=== PATIENT | female | born 1945 | race Caucasian/White ===

== ENCOUNTER 2018-11-08 21:14 | Observation (INO) ==
[2018-11-08] MEDS ORDERED: ACETAMINOPHEN 500 MG TAB PO STA (21:43)
[2018-11-08] MEDS ORDERED: SODIUM CHLORIDE 0.9% 500 ML IV SCH (21:45)
[2018-11-08 21:57] LABS: Basophils # (auto) 0.06 K/uL (0-0.2); Basophils % (auto) 0.6 %; Eosinophils # (auto) 0.18 K/uL (0-0.5); Eosinophils % (auto) 1.8 %; Hematocrit (blood only) 42.5 % (37-47); Hemoglobin 14.4 g/dL (12.0-16.0); Immature Granulocytes % (auto) 0.6 %; Lymphocytes # (auto) 2.56 K/uL (1.2-3.4); Lymphocytes % (auto) 25.4 %; Mean Corpuscular Hgb Conc 33.9 g/dL (32-36); Mean Corpuscular Volume 86.6 fL (80-100); Monocytes # (auto) 0.56 K/uL (0.11-0.59); Monocytes % (auto) 5.6 %; Neutrophils # (auto) 6.67 K/uL (1.4-6.5); Platelet Count 199 K/uL (130-400); RDW Coefficient of Variation 14.2 % (11.5-14.5); RDW Standard Deviation 44.8 fL (36.4-46.3); Red Blood Count 4.91 M/uL (4.2-5.4); White Blood Count 10.09 K/uL (4.8-10.8)
[2018-11-08 21:58] LABS: Immature Granulocytes # (auto) 0.06 K/uL (0.00-0.02)
[2018-11-08 22:15] LABS: Prothrombin Time 9.8 Seconds (9.0-12.0)
[2018-11-08 22:16] LABS: Alanine Aminotransferase 14 U/L (12-78); Albumin Level 3.6 gm/dl (3.4-5.0); Aspartate Aminotransferase 12 U/L (15-37); BUN Creatinine Ratio 15.3 (10-20); Blood Urea Nitrogen 15 mg/dl (7-18); Calcium 9.3 mg/dl (8.5-10.1); Carbon Dioxide 28 mmol/L (21-32); Chloride 106 mmol/L (98-107); Creatinine Clr Calc Pharmacy 62.8 ml/min; Est GFR (African American) 69.4; Est GFR (Non-African American) 59.8; Glucose 127 mg/dl (70-99); Magnesium 1.6 mg/dl (1.8-2.4); Potassium 3.9 mmol/L (3.5-5.1); Sodium 141 mmol/L (136-145)
[2018-11-08 22:27] LABS: Albumin Globulin Ratio 1.1 (0.9-2); Alkaline Phosphatase 69 U/L (45-117); Bilirubin,Total 0.3 mg/dl (0.2-1); Globulin 3.2 gm/dl (2.5-4.0); Total Protein 6.8 gm/dl (6.4-8.2); Troponin I < 0.015 ng/ml (0-0.045)
--- NOTE | 2018-11-08 22:34 | CT Scan Report ---
CT SCAN OF THE BRAIN WITHOUT IV CONTRAST CLINICAL HISTORY: Right arm numbness. COMPARISON STUDY: No priors. TECHNIQUE: Unenhanced axial CT scan of the brain is performed from the vertex to the skull base. A do se lowering technique was utilized adhering to the principles of ALARA. CT DOSE: 537.48 mGy.cm FINDINGS: Brain parenchyma: There are age-related involutional changes noting mild subcortical and periventric ular microangiopathic change. There is no hemorrhage, mass effect, or evidence of acute territorial i schemia by CT criteria. Miles-white matter differentiation is preserved. No extra-axial fluid collecti on is seen. Ventricles, sulci, cisterns: Prominent secondary to involutional change. Intracranial vasculature: There is atherosclerotic calcification of the cavernous carotid and vertebr al arteries. Calvarium: Unremarkable. Sinuses and mastoids: The visualized paranasal sinuses are clear. The mastoid air cells are well pneu matized. Orbits: The bony orbits are grossly intact. IMPRESSION: There is no hemorrhage, mass effect, or evidence of acute territorial ischemia by CT kris cisse. Electronically signed by: Chapin Smith M.D. 11/08/2018 10:33 PM
--- NOTE | 2018-11-08 22:57 | XRay Report ---
SINGLE VIEW CHEST CLINICAL HISTORY: Generalized weakness. FINDINGS: An AP, portable, upright chest radiograph is correlated with chest CT dated 10/05/2018. The cardiomediastinal silhouette is unremarkable noting atherosclerotic calcification of the thoracic aor ta. There is chronic elevation of right hemidiaphragm with associated atelectasis. Scattered calcifie d granulomas are observed. The lungs and pleural spaces are otherwise clear. No pneumothorax is seen. The skeletal structures are osteopenic. The bony thorax is grossly intact. Arthritic change is seen in the shoulders. IMPRESSION: No active disease in the chest. Electronically signed by: Chapin Smith M.D. 11/08/2018 10:55 PM
[2018-11-08] MEDS ORDERED: ASPIRIN CHEW 324 MG PO STA (23:25)
[2018-11-09] MEDS ORDERED: dexAMETHasone 4 MG TAB PO ONE (00:37)
[2018-11-09] MEDS ORDERED: clonazePAM 0.5 MG TAB PO ONE (00:40)
[2018-11-09] MEDS ORDERED: VENLAFAXINE HCL XR 150 MG CAPXR PO ONE (00:40)
--- NOTE | 2018-11-09 00:56 | Emergency Department Note ---
Entered by Carmen Hunter acting as a scribe for Casey Meneses MD History of Present Illness General Chief complaint: TIA Symptoms Stated complaint: CONFUSION, NUMBNESS, JUMPY VISION, SLURRED SPEECH Time Seen by Provider: 11/08/18 21:26 Source: patient History of Present Illness Provider complaint: blurred vision Onset (ago): hour(s) 3 Location: eyes Pain Consistency: + other (episode) Maximum Pain Intensity: 1 Associated symptoms: + headaches and + other (+right sided numbness, -tingling, +slurred speech); no chest pain and no nausea/vomiting The patient is a 73 year old female w/ PMHx diabetes and hypertension who presents to the ED w/ CC of an episode of blurred vision beginning 3 hours ago. The patient states that she was experiencing blurred vision at 1800 today which lasted 3-5 minutes. She states that she then had right sided hand and forearm numbness that last several minutes. She denies any tingling. She denies any nausea, vomiting, or chest pain. The patients son states that she was experiencing confusion and slurred speech that lasted several minutes. The patient notes that she has a headache located on her forehead. She notes that she took Ibuprofen which did not alleviate her symptoms. The patient reports that she has a history of diabetes, high blood pressure, anxiety, and depression. Home Medications Home Medications Medication Instructions Recorded Confirmed Type albuterol sulfate HFA 90 1 - 2 puff INHALATION QID PRN #3 gm 09/30/18 11/08/18 History mcg/actuation aerosol inhaler insulin detemir (U-100) 100 9 units SUBCUT QPM #1 ml 10/07/18 11/08/18 History unit/mL (3 mL) subcutaneous pen semaglutide 0.25 mg or 0.5 mg (2 0.25 mg SQ .once per week #1.5 ml 10/07/18 0 11/08/18 Rx mg/1.5 mL) subcutaneous pen injector clonazepam 0.5 mg tablet 0.5 mg PO HS #30 tab 10/31/18 11/08/18 Rx benzonatate 100 mg capsule 100 mg PO TID PRN #30 cap 11/08/18 11/08/18 History bisoprolol 5 1 tab PO DAILY #30 tab 11/08/18 11/08/18 History mg-hydrochlorothiazide 6.25 mg tablet cholecalciferol (vitamin D3) 1,000 1,000 units PO DAILY cap 11/08/18 11/08/18 History unit capsule fluticasone propionate 50 1 sprays INTRANASAL DAILY PRN #1 gm 11/08/18 11/08/18 History mcg/actuation nasal spray,suspension ipratropium-albuterol 0.5 mg-3 3 ml INHALATION Q4H PRN #1 ml 11/08/18 11/08/18 History mg(2.5 mg base)/3 mL nebulization soln lisinopril 5 mg tablet 5 mg PO PM #1 tab 11/08/18 11/08/18 History metformin 1,000 mg tablet 1,000 mg PO BIDM #60 tab 11/08/18 11/08/18 History pioglitazone 15 mg tablet 15 mg PO DAILY #30 tab 11/08/18 11/08/18 History venlafaxine ER 150 mg 150 mg PO DAILY #30 cap 11/08/18 11/08/18 History capsule,extended release 24 hr Allergies Allergy/AdvReac Type Severity Reaction Status Date / Time amoxicillin [From Augmentin] Allergy Severe Anaphylaxis Verified 11/08/18 23:26 cephalexin Allergy Severe Hives Verified 11/08/18 23:26 clavulanic acid Allergy Severe Anaphylaxis Verified 11/08/18 23:26 [From Augmentin] Past Med/Surg History Medical History Hypertension Type 2 diabetes mellitus Surgical History History of colonoscopy History of dilation and curettage History of tonsillectomy History of tooth extraction Family History Mother Myocardial infarction Grandmother Breast cancer Kidney disease Hypertension Aunt Alzheimer disease Social History Preferred Language: Tajik Current Living Situation: Spouse current occupational status: retired Feels Safe at Home: Yes Smoking Status: Current every day smoker Hx Alcohol Use: No Hx Substance Use: No Dental Care, Regularly: No Review of Systems See HPI for pertinent positives & negatives. and A total of 10 systems reviewed and were otherwise negative Physical Exam Vital Signs Vital Signs - 24 hr 11/08/18 21:15 11/08/18 21:21 11/08/18 21:43 Temperature 36.7 C Temperature Source Oral Sepsis Recent Fever Within 48 Hours No Sepsis Action Taken by Nursing No Action Required Pulse Rate 85 Pulse Rhythm Regular Pulse Strength Normal Respiratory Rate 16 Respiratory Effort / Characteristics Non-Labored Respiratory Depth Normal Respiratory Pattern Regular Blood Pressure 148/83 H Blood Pressure Mean 104 Blood Pressure Position Sitting Pulse Oximetry 98 99 98 Oxygen Delivery Method Room Air Room Air Room Air GENERAL: Well appearing, appears older that stated age, well nourished, NAD, non-toxic. EYE EXAM: Normal conjunctiva. PERRL, no anisocoria and EOM's grossly intact w/o pain. OROPHARYNX: Moist mucous membranes. Grossly normal dentition. NECK: Supple, no nuchal rigidity, no adenopathy, non-tender. No signs of meningismus. LUNGS: Clear to auscultation. Normal chest wall mechanics. HEART: NSR, no MRG. ABDOMEN: Abdomen soft, non-tender, normo-active bowel sounds, no masses, no rebound or guarding. BACK: No CVA TTP. SKIN: No rashes and no bruising. UPPER EXTREMITIES: Upper extremities are grossly normal. LOWER EXTREMITIES: No pitting edema. No calf pain. NEURO EXAM: A&O x3, cranial nerves II-XII grossly intact, normal speech, 5/5 strength throughout, no sensory deficits, good finger to nose, no pronator drift, moves all 4 extremities on command w/o issue. Course 2128: The patient was evaluated in room B2, and a complete history and physical examination were performed. 6: I reevaluated the patient and updated her on her results. 2310: I [facility] the [facility] she will accept the patient for further evaluation. Consultations Consultation #1: [facility] Dana Odonnell [facility] Hospitalist Time: 23:10 Administered Medications Discontinued Medications Acetaminophen (Tylenol) 1,000 mg PO NOW STA Stop: 11/08/18 21:44 Last Admin: 11/08/18 22:02 Dose: 1,000 mg Documented by: [id number] Aspirin (Aspirin) 162 mg PO NOW STA Stop: 11/08/18 23:26 Last Admin: 11/08/18 23:35 Dose: 162 mg Documented by: [id number] Sodium Chloride (Nss) 500 mls @ 999 mls/hr IV .Q31M PAVITHRA Stop: 11/08/18 22:15 Last Infusion: 11/08/18 22:42 Dose: 0 mls/hr Documented by: [id number] Admin: 11/08/18 22:05 Dose: 999 mls/hr Documented by: [id number] Medical Decision Making Medical Records Attestation: I reviewed the patient's medical records. Home Medications Current Medication List: was personally reviewed by me Laboratory Data Attestation: I reviewed the patient's lab results. Result diagrams: 11/08/18 21:47 11/08/18 21:47 Lab Results 11/08/18 11/08/18 11/08/18 Range/Units 21:45 21:47 21:47 WBC 10.09 (4.8-10.8) K/uL RBC 4.91 (4.2-5.4) M/uL Hgb 14.4 (12.0-16.0) g/dL Hct 42.5 (37-47) % MCV 86.6 (80-100) fL MCH 29.3 (25-34) pg MCHC 33.9 (32-36) g/dL RDW Std Deviation 44.8 (36.4-46.3) fL RDW Coeff of Kofi 14.2 (11.5-14.5) % Plt Count 199 (130-400) K/uL MPV 11.0 H (7.4-10.4) fL Immature Gran % (Auto) 0.6 % Neut % (Auto) 66.0 % Lymph % (Auto) 25.4 % [place] % (Auto) 5.6 % Eos % (Auto) 1.8 % Baso % (Auto) 0.6 % Immature Gran # (Auto) 0.06 H (0.00-0.02) K/uL Neut # (Auto) 6.67 H (1.4-6.5) K/uL Lymph # (Auto) 2.56 (1.2-3.4) K/uL [place] # (Auto) 0.56 (0.11-0.59) K/uL Eos # (Auto) 0.18 (0-0.5) K/uL Baso # (Auto) 0.06 (0-0.2) K/uL PT 9.8 (9.0-12.0) Seconds INR 1.0 (0.9-1.1) Sodium (136-145) mmol/L Potassium (3.5-5.1) mmol/L Chloride (98-107) mmol/L Carbon Dioxide (21-32) mmol/L Anion Gap (3-11) BUN (7-18) mg/dl Creatinine (0.6-1.2) mg/dl Est Cr Clr Drug Dosing ml/min Est GFR ( Amer) Est GFR (Non-Af Amer) BUN/Creatinine Ratio (10-20) Glucose (70-99) mg/dl POC Glucose 128 H (70-99) Calcium (8.5-10.1) mg/dl Magnesium (1.8-2.4) mg/dl Total Bilirubin (0.2-1) mg/dl AST (15-37) U/L ALT (12-78) U/L Alkaline Phosphatase (45-117) U/L Troponin I (0-0.045) ng/ml Total Protein (6.4-8.2) gm/dl Albumin (3.4-5.0) gm/dl Globulin (2.5-4.0) gm/dl Albumin/Globulin Ratio (0.9-2) TSH (0.300-4.500) uIu/ml 11/08/18 Range/Units 21:47 WBC (4.8-10.8) K/uL RBC (4.2-5.4) M/uL Hgb (12.0-16.0) g/dL Hct (37-47) % MCV (80-100) fL MCH (25-34) pg MCHC (32-36) g/dL RDW Std Deviation (36.4-46.3) fL RDW Coeff of Kofi (11.5-14.5) % Plt Count (130-400) K/uL MPV (7.4-10.4) fL Immature Gran % (Auto) % Neut % (Auto) % Lymph % (Auto) % [place] % (Auto) % Eos % (Auto) % Baso % (Auto) % Immature Gran # (Auto) (0.00-0.02) K/uL Neut # (Auto) (1.4-6.5) K/uL Lymph # (Auto) (1.2-3.4) K/uL [place] # (Auto) (0.11-0.59) K/uL Eos # (Auto) (0-0.5) K/uL Baso # (Auto) (0-0.2) K/uL PT (9.0-12.0) Seconds INR (0.9-1.1) Sodium 141 (136-145) mmol/L Potassium 3.9 (3.5-5.1) mmol/L Chloride 106 (98-107) mmol/L Carbon Dioxide 28 (21-32) mmol/L Anion Gap 8.0 (3-11) BUN 15 (7-18) mg/dl Creatinine 0.95 (0.6-1.2) mg/dl Est Cr Clr Drug Dosing 62.8 ml/min Est GFR ( Amer) 69.4 Est GFR (Non-Af Amer) 59.8 BUN/Creatinine Ratio 15.3 (10-20) Glucose 127 H (70-99) mg/dl POC Glucose (70-99) Calcium 9.3 (8.5-10.1) mg/dl Magnesium 1.6 L (1.8-2.4) mg/dl Total Bilirubin 0.3 (0.2-1) mg/dl AST 12 L (15-37) U/L ALT 14 (12-78) U/L Alkaline Phosphatase 69 (45-117) U/L Troponin I < 0.015 (0-0.045) ng/ml Total Protein 6.8 (6.4-8.2) gm/dl Albumin 3.6 (3.4-5.0) gm/dl Globulin 3.2 (2.5-4.0) gm/dl Albumin/Globulin Ratio 1.1 (0.9-2) TSH 1.500 (0.300-4.500) uIu/ml Imaging Data Radiologist's Impression: Radiology results as stated below per my review and the radiologist's interpretation: CT SCAN OF THE BRAIN WITHOUT IV CONTRAST CLINICAL HISTORY: Right arm numbness. COMPARISON STUDY: No priors. TECHNIQUE: Unenhanced axial CT scan of the brain is performed from the vertex to the skull base. A dose lowering technique was utilized adhering to the principles of ALARA. CT DOSE: 537.48 mGy.cm FINDINGS: Brain parenchyma: There are age-related involutional changes noting mild subcortical and periventricular microangiopathic change. There is no hemorrhage, mass effect, or evidence of acute territorial ischemia by CT criteria. Miles- white matter differentiation is preserved. No extra-axial fluid collection is seen. Ventricles, sulci, cisterns: Prominent secondary to involutional change. Intracranial vasculature: There is atherosclerotic calcification of the cavernous carotid and vertebral arteries. Calvarium: Unremarkable. Sinuses and mastoids: The visualized paranasal sinuses are clear. The mastoid air cells are well pneumatized. Orbits: The bony orbits are grossly intact. IMPRESSION: There is no hemorrhage, mass effect, or evidence of acute territorial ischemia by CT criteria. Electronically signed by: Chapin Smith M.D. 11/08/2018 10:33 PM SINGLE VIEW CHEST CLINICAL HISTORY: Generalized weakness. FINDINGS: An AP, portable, upright chest radiograph is correlated with chest CT dated 10/05/2018. The cardiomediastinal silhouette is unremarkable noting atherosclerotic calcification of the thoracic aorta. There is chronic elevation of right hemidiaphragm with associated atelectasis. Scattered calcified granulomas are observed. The lungs and pleural spaces are otherwise clear. No pneumothorax is seen. The skeletal structures are osteopenic. The bony thorax is grossly intact. Arthritic change is seen in the shoulders. IMPRESSION: No active disease in the chest. Electronically signed by: Chapin Smith M.D. 11/08/2018 10:55 PM ECG Data Attestation: I personally reviewed and interpreted this ECG as follows: Indication: weakness Rate (beats per minute): 85 Rhythm: normal sinus Findings: + other (normal interval and axis) Blood Pressure Blood Pressure Findings: Elevated blood pressure Blood Pressure Disposition: further management by hospitalist MDM Narrative The patient is a 73 year old female w/ PMHx diabetes and hypertension who presents to the ED w/ CC of an episode of blurred vision beginning 3 hours ago. Differential Diagnosis includes but is not limited to ischemic Stroke, hemorrhagic stroke, bells palsy, mass, neoplasm, migraine headache, seizure, subarachnoid hemorrhage, TIA, and transient global amnesia. Patient was seen and evaluated the bedside. The patient did present with concerning TIA type symptoms. On exam the patient does not have any acute deficits but had some right upper extremity numbness perioral numbness and associated word finding difficulty, expressive aphasia, as well as slurred speech. The patient currently does not have any acute findings. Patient does have multiple medical comorbidities that would put her at risk for TIA as the patient does have diabetes, hypertension, hyperlipidemia and the patient does relate that she is a smoker. I counseled the patient on smoking cessation for 5 minutes, was offered resources as well as recommendations to help with smoking cessation, resources were provided, patient understood. Patient's blood work is fairly unremarkable. CT of the head is negative. EKG does not show any elements of A. fib. The patient's mag is a touch low. Patient was given the rest of a full dose aspirin as the patient very taken to prior to arrival. I did speak with the on-call hospitalist who agreed to further evaluate treat the patient. Patient was admitted to the medicine service. Impression & Plan TIA (transient ischemic attack), Headache, Encounter for smoking cessation counseling Discharge Plan Visit Data Chief Complaint: TIA Symptoms Stated Complaint: CONFUSION, NUMBNESS, JUMPY VISION, SLURRED SPEECH Other Complaint: Stroke/CVA Symptoms ED Provider: Casey Meneses Discharge Problem: TIA (transient ischemic attack), Headache, Encounter for smoking cessation counseling Patient Disposition: Being Evaluated by Hospitalist Forms Stand Alone Forms: My [facility] [place] [employer] Prescriptions Prescriptions: No Action clonazepam 0.5 mg tablet 0.5 mg PO HS Qty: 30 RF: 0 albuterol sulfate 90 mcg/actuation HFA aerosol inhaler 1 - 2 puff inhalation QID PRN (Reason: Shortness Of Breath Or Wheezing) Qty: 3 RF: 0 Ozempic 0.25 mg or 0.5 mg(2 mg/1.5 mL) pen injector 0.25 mg SQ .once per week Qty: 1.5 RF: 0 insulin detemir U-100 100 unit/mL (3 mL) insulin pen 9 units subcut QPM Qty: 1 RF: 0 benzonatate 100 mg capsule 100 mg PO TID PRN (Reason: Shortness Of Breath Or Wheezing) Qty: 30 RF: 0 bisoprolol-hydrochlorothiazide 5-6.25 mg tablet 1 tab PO DAILY Qty: 30 RF: 0 cholecalciferol (vitamin D3) 1,000 unit capsule 1,000 units PO DAILY RF: 0 fluticasone propionate 50 mcg/actuation spray,suspension 1 sprays intranasal DAILY PRN (Reason: congested) Qty: 1 RF: 0 ipratropium-albuterol 0.5 mg-3 mg(2.5 mg base)/3 mL solution for nebulization 3 ml inhalation Q4H PRN (Reason: Shortness Of Breath Or Wheezing) Qty: 1 RF: 0 lisinopril 5 mg tablet 5 mg PO PM Qty: 1 RF: 0 metformin 1,000 mg tablet 1,000 mg PO BIDM Qty: 60 RF: 0 pioglitazone 15 mg tablet 15 mg PO DAILY Qty: 30 RF: 0 venlafaxine 150 mg capsule,extended release 24hr 150 mg PO DAILY Qty: 30 RF: 0 Referrals Referrals: Kael Guzman, [Primary Care Provider] - The scribe's documentation has been prepared under my direction and personally reviewed by me in its entirety. I confirm that the note above accurately reflects all work, treatment, procedures, and medical decision making performed by me.
--- NOTE | 2018-11-09 01:32 | History & Physical Report ---
Date of Service November 09, 2018 Assessment & Plan (1) TIA (transient ischemic attack): 73-year-old female was admitted on 09 November 2017 for TIA symptoms. TIA symptoms, headache: Three different areas of TIA symptoms beginning around 1730 on day prior to admission. All presently resolved. Very remote history of suspected complex migraine with no interval headaches or similar symptoms. Home blood sugar was 127 and normal here as well. No focal neuro deficits on exam. ABCD2 score of FOUR (moderate risk). - In ED, afebrile, not tachycardic or tachypneic, mild hypertension, with normal room SpO2. WBC 10. Troponin negative. EKG is NSR 85. TSH normal. CT the head was nonacute. pCXR showed no active disease but a positive chronic right hemidiaphragm elevation with associated atelectasis. -At home was treated with aspirin 162 mg and ibuprofen 400 mg. In ED, treated with Tylenol, normal saline IVF, and aspirin 162 mg. - Ordered MRI noncontrast of the brain, CTA of the head and the neck, echocardiogram, updated hemoglobin A1c, and lipid panel. Will treat her mild residual headache with Decadron. Neurology consulted for a.m. Hypomagnesemia: Admit Mg 1.6. Will replace. Chest tightness, history of COPD: No actual reported pain. EKG and troponin normal as above. Suspect some level of very mild COPD exacerbation. Was recently started on Spiriva. - Would benefit from as needed albuterol nebs. Single dose of Decadron for her headache may help with this as well. - Discussed at length that she should follow-up with her primary care provider for more chronic management of her symptoms. Consider d/c home with refill of albuterol. Ongoing medical issues: - Hypertension: Continue home lisinopril, bisoprololhydrochlorothiazide. - Diabetes type 2: At home is on metformin, glitazone, Ozempic, as well as Levemir 9 units every evening. As inpatient, will keep on her Levemir as well as insulin sliding scale for now. - Anxiety/depression: Continue home clonazepam at night as well as venlafaxine. Code status: Full code. Diet: DM2. DVT prophy: SCDs and ambulation. PT/OT: Deferred. Disbo: Admit to MedSurg telemetry. (2) Headache: (3) Hypomagnesemia: (4) Chest tightness: (5) COPD (chronic obstructive pulmonary disease): (6) Essential (primary) hypertension: (7) Type 2 diabetes mellitus without complications: (8) Anxiety disorder: (9) Depression: History of Present Illness Primary Care Provider: Kael Guzman DO 73-year-old female presents with now resolved multiple focal neurologic symptoms. Subjectively, we discussed the following: - Patient says around 5:30 PM the evening prior to admission she was watching TV. She noticed the acute onset as if her visual field in the upper outer quadrant of both eyes appeared like it was "jumping" or as if it had wavy lines. She tried closing each eye individually with no change. This seemed to gradually resolve within 5 minutes. Following this she took aspirin 162 mg. - Shortly thereafter she went to lay down to rest, lying on her right side. She then noticed that her entire right hand and potentially her right forearm felt more numb. She also noticed that her lips felt "kind of numb". This lasted for about 3 to 5 minutes and then completely resolved. - At this point she decided to go to bed. Shortly thereafter her woke her up to check on her. He asked her to answer some basic questions which point the patient noted to have very garbled speech. This seemed to last for a few minutes and then also completely resolved. - Around this time the patient took ibuprofen 400 mg for mild frontal headache that has presently nearly resolved. She also along the way had some mild neck pain that presently has nearly resolved. - Patient says that perhaps 15 years ago she had the appearance of "a broken mirror" in her vision. She was evaluated at that time, told that it was related to a migraine, but notes that she has never had this since. She also denies chronic headaches. She says today's visual field changes do not seem the same as they were 15 years ago. - As a review of systems, patient says that she was on track to see her primary care provider today (Wed) for the feeling of some chest tightness over the past couple of days. She describes it is more of a dry cough but no actual pain, dyspnea on exertion, fevers or feeling of illness, or any actual real concern acutely over this. She does have history of COPD and was recently started on Spiriva in the past week. She is supposed to have some albuterol but she ran out. She would have otherwise tried some albuterol for this. - Past medical history includes hypertension, type 2 diabetes, pulmonary nodule, toxic multinodular goiter, anxiety, COPD. - Past surgical history includes colonoscopy, D&C, tonsillectomy. - Social history includes daily smoker for over 50 years. Denies alcohol use. Lives at home with . Allergies Allergy/AdvReac Type Severity Reaction Status Date / Time amoxicillin [From Augmentin] Allergy Severe Anaphylaxis Verified 11/08/18 23:26 cephalexin Allergy Severe Hives Verified 11/08/18 23:26 clavulanic acid Allergy Severe Anaphylaxis Verified 11/08/18 23:26 [From Augmentin] Home Medications Home Medications Medication Instructions Recorded Confirmed Type albuterol sulfate HFA 90 1 - 2 puff INHALATION QID PRN #3 gm 09/30/18 11/08/18 History mcg/actuation aerosol inhaler insulin detemir (U-100) 100 9 units SUBCUT QPM #1 ml 10/07/18 11/08/18 History unit/mL (3 mL) subcutaneous pen semaglutide 0.25 mg or 0.5 mg (2 0.25 mg SQ .once per week #1.5 ml 10/07/18 11/08/18 Rx mg/1.5 mL) subcutaneous pen injector clonazepam 0.5 mg tablet 0.5 mg PO HS #30 tab 10/31/18 11/08/18 Rx benzonatate 100 mg capsule 100 mg PO TID PRN #30 cap 11/08/18 11/08/18 History bisoprolol 5 1 tab PO DAILY #30 tab 11/08/18 11/08/18 History mg-hydrochlorothiazide 6.25 mg tablet cholecalciferol (vitamin D3) 1,000 1,000 units PO DAILY cap 11/08/18 11/08/18 History unit capsule fluticasone propionate 50 1 sprays INTRANASAL DAILY PRN #1 gm 11/08/18 11/08/18 History mcg/actuation nasal spray,suspension ipratropium-albuterol 0.5 mg-3 3 ml INHALATION Q4H PRN #1 ml 11/08/18 11/08/18 History mg(2.5 mg base)/3 mL nebulization soln lisinopril 5 mg tablet 5 mg PO PM #1 tab 11/08/18 11/08/18 History metformin 1,000 mg tablet 1,000 mg PO BIDM #60 tab 11/08/18 11/08/18 History pioglitazone 15 mg tablet 15 mg PO DAILY #30 tab 11/08/18 11/08/18 History venlafaxine ER 150 mg 150 mg PO DAILY #30 cap 11/08/18 11/08/18 History capsule,extended release 24 hr Past Med/Surg History Medical History Hypertension Type 2 diabetes mellitus Surgical History History of colonoscopy History of dilation and curettage History of tonsillectomy History of tooth extraction Family History Mother Myocardial infarction Grandmother Breast cancer Kidney disease Hypertension Aunt Alzheimer disease Social History Preferred Language: Danish Communication Ability: Effective Section Gang Worker Required: No Beliefs That Will Affect Care: None Current Living Situation: Spouse current occupational status: retired Other Information That Helps Us Care for You: No Feels Safe at Home: Yes Safety Concerns: Feels Safe At This Time Smoking Status: Current every day smoker Tobacco Type: cigarettes ; Cigarettes Per Day: 15 ; Do You Dip or Chew Tobacco: No ; Tobacco Cessation Education Requested by Patient: No Hx Alcohol Use: No Hx Substance Use: No Dental Care, Regularly: No Review of Systems Review of Systems: Constitutional: Denies fevers, chills, focal weakness Eyes: Positive visual field changes since resolved. Denies diplopia. ENT: Denies any ear/nose/throat pain or difficulty speaking or swallowing Respiratory: Positive dry cough and chest tightness. Denies dyspnea or hemoptysis. Cardiovascular: Denies any chest pain or feeling of edema Gastrointestinal: Denies any abdominal pain, nausea/vomiting/diarrhea Musculoskeletal: Denies any acute extremity pains, myalgias, or focal weakness Skin: Denies any known acute rashes or lesions Neuro: Positive headache. See HPI for focal neuro concerns. Denies difficulty with speech or swallow. Psych: Denies any recent depression or anxiety Physical Exam Physical Exam: GENERAL: Awake, alert, well-appearing, in no acute distress HENT: Normocephalic, atraumatic. Oropharynx unremarkable. Pupils PERRL, EOMI without noted visual field deficits including in the right upper quadrant. EYES: Normal conjunctiva. Sclera non-icteric. NECK: Inspection normal. Supple and full ROM. No nuchal rigidity. CARDIAC: +S1S2 RRR, no murmurs. RESPIRATORY: Clear to auscultation. No wheezes or rales. Normal respiratory effort. No present cough and speaking easily in full sentences. GI: +BS, soft, non-distended. No tenderness to palpation. No rebound or guarding. EXTREMITIES: No pedal edema or calf tenderness. Moving all extremities naturally and easily. NEURO: CN II through XII intact (IX not checked). Strength 5/5 in all extremities. Distal sensation equal and intact in all extremities. Results & Data Vital Signs (Past 12 Hours) Vital Signs Temp Pulse Resp BP Pulse Ox 11/09/18 00:00 86 19 11/08/18 23:00 81 16 11/08/18 22:05 158/92 H 11/08/18 21:43 98 11/08/18 21:21 36.7 C 85 16 148/83 H 99 11/08/18 21:15 98 Laboratory Results 11/08/18 11/08/18 11/08/18 Range/Units 21:47 21:47 21:47 WBC 10.09 (4.8-10.8) K/uL RBC 4.91 (4.2-5.4) M/uL Hgb 14.4 (12.0-16.0) g/dL Hct 42.5 (37-47) % MCV 86.6 (80-100) fL MCH 29.3 (25-34) pg MCHC 33.9 (32-36) g/dL RDW Std Deviation 44.8 (36.4-46.3) fL RDW Coeff of Kofi 14.2 (11.5-14.5) % Plt Count 199 (130-400) K/uL MPV 11.0 H (7.4-10.4) fL Immature Gran % (Auto) 0.6 % Neut % (Auto) 66.0 % Lymph % (Auto) 25.4 % Hardin % (Auto) 5.6 % Eos % (Auto) 1.8 % Baso % (Auto) 0.6 % Immature Gran # (Auto) 0.06 H (0.00-0.02) K/uL Neut # (Auto) 6.67 H (1.4-6.5) K/uL Lymph # (Auto) 2.56 (1.2-3.4) K/uL Hardin # (Auto) 0.56 (0.11-0.59) K/uL Eos # (Auto) 0.18 (0-0.5) K/uL Baso # (Auto) 0.06 (0-0.2) K/uL PT 9.8 (9.0-12.0) Seconds INR 1.0 (0.9-1.1) Sodium 141 (136-145) mmol/L Potassium 3.9 (3.5-5.1) mmol/L Chloride 106 (98-107) mmol/L Carbon Dioxide 28 (21-32) mmol/L Anion Gap 8.0 (3-11) BUN 15 (7-18) mg/dl Creatinine 0.95 (0.6-1.2) mg/dl Est Cr Clr Drug Dosing 62.8 ml/min Est GFR ( Amer) 69.4 Est GFR (Non-Af Amer) 59.8 BUN/Creatinine Ratio 15.3 (10-20) Glucose 127 H (70-99) mg/dl POC Glucose (70-99) Calcium 9.3 (8.5-10.1) mg/dl Magnesium 1.6 L (1.8-2.4) mg/dl Total Bilirubin 0.3 (0.2-1) mg/dl AST 12 L (15-37) U/L ALT 14 (12-78) U/L Alkaline Phosphatase 69 (45-117) U/L Troponin I < 0.015 (0-0.045) ng/ml Total Protein 6.8 (6.4-8.2) gm/dl Albumin 3.6 (3.4-5.0) gm/dl Globulin 3.2 (2.5-4.0) gm/dl Albumin/Globulin Ratio 1.1 (0.9-2) TSH 1.500 (0.300-4.500) uIu/ml 11/08/18 Range/Units 21:45 WBC (4.8-10.8) K/uL RBC (4.2-5.4) M/uL Hgb (12.0-16.0) g/dL Hct (37-47) % MCV (80-100) fL MCH (25-34) pg MCHC (32-36) g/dL RDW Std Deviation (36.4-46.3) fL RDW Coeff of Kofi (11.5-14.5) % Plt Count (130-400) K/uL MPV (7.4-10.4) fL Immature Gran % (Auto) % Neut % (Auto) % Lymph % (Auto) % Hardin % (Auto) % Eos % (Auto) % Baso % (Auto) % Immature Gran # (Auto) (0.00-0.02) K/uL Neut # (Auto) (1.4-6.5) K/uL Lymph # (Auto) (1.2-3.4) K/uL Hardin # (Auto) (0.11-0.59) K/uL Eos # (Auto) (0-0.5) K/uL Baso # (Auto) (0-0.2) K/uL PT (9.0-12.0) Seconds INR (0.9-1.1) Sodium (136-145) mmol/L Potassium (3.5-5.1) mmol/L Chloride (98-107) mmol/L Carbon Dioxide (21-32) mmol/L Anion Gap (3-11) BUN (7-18) mg/dl Creatinine (0.6-1.2) mg/dl Est Cr Clr Drug Dosing ml/min Est GFR ( Amer) Est GFR (Non-Af Amer) BUN/Creatinine Ratio (10-20) Glucose (70-99) mg/dl POC Glucose 128 H (70-99) Calcium (8.5-10.1) mg/dl Magnesium (1.8-2.4) mg/dl Total Bilirubin (0.2-1) mg/dl AST (15-37) U/L ALT (12-78) U/L Alkaline Phosphatase (45-117) U/L Troponin I (0-0.045) ng/ml Total Protein (6.4-8.2) gm/dl Albumin (3.4-5.0) gm/dl Globulin (2.5-4.0) gm/dl Albumin/Globulin Ratio (0.9-2) TSH (0.300-4.500) uIu/ml Medications Administered Discontinued Medications Acetaminophen (Tylenol) 1,000 mg PO NOW STA Stop: 11/08/18 21:44 Last Admin: 11/08/18 22:02 Dose: 1,000 mg Documented by: [id number] Aspirin (Aspirin) 162 mg PO NOW STA Stop: 11/08/18 23:26 Last Admin: 11/08/18 23:35 Dose: 162 mg Documented by: [id number] Clonazepam (Klonopin) 0.5 mg PO NOW ONE Stop: 11/09/18 00:41 Last Admin: 11/09/18 01:19 Dose: 0.5 mg Documented by: [id number] Dexamethasone (Decadron) 4 mg PO NOW ONE Stop: 11/09/18 00:38 Last Admin: 11/09/18 01:19 Dose: 4 mg Documented by: [id number] Sodium Chloride (Nss) 500 mls @ 999 mls/hr IV .Q31M PAVITHRA Stop: 11/08/18 22:15 Last Infusion: 11/08/18 22:42 Dose: 0 mls/hr Documented by: [id number] Admin: 11/08/18 22:05 Dose: 999 mls/hr Documented by: [id number] Venlafaxine HCl (Effexor Extended Release) 150 mg PO ONE ONE Stop: 11/09/18 00:41 Last Admin: 11/09/18 01:19 Dose: 150 mg Documented by: [id number] Code Status & VTE Plan Code Status Full code VTE Prophylaxis Plan VTE Prophylaxis will be ordered: Yes Supervising Physician Co-Signing Physician Notes Patient seen and examined, chart reviewed, case discussed with Dr. Orellana and I agree with the assessment and plan as documented above. Briefly, patient is a 73yo C female with history of HTN, DM, tobacco abuse presenting with stroke-like symptoms. Symptoms began around 17:30 with visual impairment then some hand and perioral numbness developed. Symptoms have since resolved. Patient still with dull frontal headache, 1/10 in severity. Remote history of "complex migraine", had a period of time 2-3 weeks ago where she woke qAM with a headache. No fevers, no meningismus, RODRÍGUEZ does not worsen with positional changes or bearing down On physical exam she is afebrile, HD stable, neurologically intact Remainder of exam unremarkable Labs and images reviewed. AIC in September was 9.2. She had lipid panel in the past as well with elevated TG at 213, Total Smbn=901 and HDL=48 Assessment/Plan: 73yo C female with HTN/DM presents with stroke-like symptoms which have since resolved. ?TIA/CVA vs complex migraine. Favor TIA -Admit to PCU -Imaging to include CTA head and neck and MRI -2D echo -Check AIC and Lipid panel -Initiate ASA 81mg po daily -Neurology consultation - appreciate assistance -Remainder of plan as above PG Care Time/CCT Total # of Minutes Spent Total Time Spent with Patient: Total time spent is greater than 50% in coordination of care (as documented) at patient's floor/unit and/or counseling patient: Resident Activity Tracking Resident Involvement: Resident Care Provided Care Provided: Adult Hospital Medicine (1) Headache Headache chronicity pattern: acute headache Headache type: unspecified Intractability: not intractable Qualified Code(s): R51 - Headache
[2018-11-09] MEDS ORDERED: OPTIRAY 320 125ml IV PRN (02:06)
[2018-11-09] MEDS ORDERED: ACETAMINOPHEN 325 MG TAB PO PRN (03:51)
[2018-11-09] MEDS ORDERED: DEXTROSE 50% 50 ML SYRINGE IV PRN (03:51)
[2018-11-09] MEDS ORDERED: CARBOHYDRATES FOR HYPOGLYCEMIA PO PRN (03:51)
[2018-11-09] MEDS ORDERED: ALBUT/IPRATROP 3MG/0.5MG NEB 3 ML VIAL INH PRN (03:51)
[2018-11-09] MEDS ORDERED: FLUTICASONE PROPIONATE NA SPR 16 GM BTL PRN (03:51)
[2018-11-09] MEDS ORDERED: ONDANSETRON INJ 2 MG/ML 2 ML VIAL IV PRN (03:51)
[2018-11-09] MEDS ORDERED: BENZONATATE 100 MG CAPSULE PO PRN (03:51)
[2018-11-09] MEDS ORDERED: GLUCOSE 40% GEL 15 GM TUBE PO PRN (03:51)
[2018-11-09] MEDS ORDERED: GLUCAGON FOR INJ 1 MG VIAL SQ PRN (03:51)
[2018-11-09] MEDS ORDERED: GLUCOSE 10 TABS/TUBE PO PRN (03:51)
--- NOTE | 2018-11-09 06:35 | CT Scan Report ---
CT angio neck with con HISTORY: Mental status change TIA symptoms TECHNIQUE: Multiaxial CT angiography of the neck was performed IV contrast: 100 cc All measurements were calculated based on NASCET criteria. Maximum intensity projection images were also obtained. A dose lowering technique was utilized adhering to the principles of ALARA. COMPARISON STUDY: None. FINDINGS: The aortic arch and proximal great vessels are widely patent. Plaque formation of the barrera tid bifurcations bilaterally. 50% narrowing origin right internal carotid artery. 50% origin origin l eft internal carotid artery. No significant stenotic process of the vertebral basilar system. IMPRESSION: 1. 50% narrowing of the carotid bifurcations and proximal internal carotid arteries bilaterally. 2. No evidence for high-grade stenosis. 3. Normal vertebrobasilar system The above report was generated using voice recognition software. It may contain grammatical, syntax or spelling errors. Electronically signed by: Danilo Fisher M.D. 11/09/2018 6:34 AM
--- NOTE | 2018-11-09 06:39 | CT Scan Report ---
CT angio head w con CLINICAL HISTORY: Stroke symptoms. TECHNIQUE: CT angiography of the head was performed in a dynamic helical fashion during intravenous a dministration of 119 cc of Optiray 320. MIP imaging was performed. A dose lowering technique was util ized adhering to the principles of ALARA. CT DOSE: COMPARISON STUDY: Noncontrast head CT dated 11/08/2018 FINDINGS: There are no lesion suspicious for aneurysm. There are no major intracranial branch occlusi ons. The dural venous sinuses appear patent. IMPRESSION: Normal study. Electronically signed by: Clayton Duarte M.D. 11/09/2018 6:38 AM
--- NOTE | 2018-11-09 07:44 | Magnetic Resonance Report ---
Brain MRI WITHOUT CONTRAST HISTORY: Abnormal vision. Right hand numbness. Difficulty speaking. TIA symptoms TECHNIQUE: Multiplanar multisequence MRI of the brain was performed without the use of contrast. COMPARISON STUDY: Head CT 11/08/2018. FINDINGS: There is no mass, hematoma, midline shift, or acute infarct. The paranasal sinuses are sanya r. The mastoid air cells are clear. The ventricles and sulci demonstrate mild age-related involutiona l changes. Scattered foci of T2 hyperintensity seen within the periventricular and subcortical white matter are nonspecific but suggestive of moderate microvascular ischemic changes. The major vascular flow voids at the skull base are well-maintained. IMPRESSION: No acute intracranial abnormality. Scattered foci of T2 hyperintensity seen within the periventricula r and subcortical white matter are nonspecific but favor microvascular ischemic change. Electronically signed by: Adelfo Sanchez M.D. 11/09/2018 7:43 AM
[2018-11-09] MEDS: VENLAFAXINE HCL XR 150 MG CAPXR PO SCH ×2 (08:31→08:35)
[2018-11-09] MEDS: INSULIN ASPART 100 UNITS/ML 3 ML PEN SC SCH ×2 (08:39→12:36)
[2018-11-09] MEDS ORDERED: MAGNESIUM OXIDE 400 MG TAB PO ONE (09:00)
[2018-11-09] MEDS ORDERED: ASPIRIN 81 MG ECTAB PO SCH (09:00)
[2018-11-09] MEDS ORDERED: BISOPROLOL HYDROCHLOROTHIAZIDE PO SCH (09:00)
[2018-11-09] MEDS ORDERED: CHOLECALCIFEROL 1,000 UNITS TAB PO SCH (09:00)
[2018-11-09] MEDS ORDERED: NICOTINE 21 MG/24 HR TDSY TD SCH (09:00)
--- NOTE | 2018-11-09 09:30 | Neurology Consultation ---
Date of Consultation November 09, 2018 Assessment & Plan (1) TIA (transient ischemic attack): I suspect this patient had a TIA localizing to the left cerebral hemisphere. Her reported vision disturbance involving the right upper outer quadrant would localize to the optic radiations within the left temporal lobe (rather than the occipital lobe). The reported right sided numbness and aphasia would localize to the left cerebral hemisphere/left MCA territory as well. She is currently neurologically intact and her symptoms have resolved. Her brain MRI is negative for acute or subacute infarct but does reveal moderately extensive chronic microvascular ischemic disease. The bilateral carotid stenoses are probably incidental but should be followed periodically as an outpatient with ultrasound. There was no suggestion of plaque rupture or significant intracranial stenosis on CT angiography. I would recommend checking a fasting lipid panel and in fact she would probably benefit from starting a statin given the presence of carotid atherosclerotic disease. I agree with continuing daily low-dose aspirin, 81 mg/day as she was not taking antiplatelet medication as an outpatient. Follow-up with results of echocardiogram. I agree with smoking cessation. No further immediate neurological recommendations. History of Present Illness Reason for Consultation: TIA Requesting Physician: Thaddeus Orellana Attending Physician: Patrick Martínez History of Present Illness The patient is a 73-year old female with a chief complaint of word finding difficulty that was preceded by numbness and tingling affecting the right hand and forearm and a vision disturbance to the right upper outer quadrant of both eyes. Her symptoms began last night at around 6 PM and consisted of the above vision disturbance which lasted for a few minutes and resolved but was followed by paresthesia to the distal right upper limb with associated numbness and tingling along the corner of the right side of the mouth. She does not recall having any associated weakness and indicates that her sensory symptoms persisted for a few minutes and resolved. She subsequently went to bed, but awoke a few hours later with significant word finding difficulty and a low to moderate grade right frontal headache. Her speech disturbance also resolved within a few minutes although her headache persisted in spite of taking some ibuprofen. She came to the emergency department for further assessment although did not have any obvious neurological deficits at that time. A CT of the head was negative for hemorrhage or acute process. She was treated with aspirin and admitted for further evaluation and management. Past medical history is notable for type 2 diabetes mellitus, hypertension, and tobacco use. She does not take aspirin or any other blood thinners as an outpatient. She is prescribed several medications for her diabetes as well as an antihypertensive. She is not on a statin. Allergies Allergy/AdvReac Type Severity Reaction Status Date / Time amoxicillin [From Augmentin] Allergy Severe Anaphylaxis Verified 11/08/18 23:26 cephalexin Allergy Severe Hives Verified 11/08/18 23:26 clavulanic acid Allergy Severe Anaphylaxis Verified 11/08/18 23:26 [From Augmentin] Home Medications Home Medications Medication Instructions Recorded Confirmed Type albuterol sulfate HFA 90 1 - 2 puff INHALATION QID PRN #3 gm 09/30/18 11/08/18 History mcg/actuation aerosol inhaler insulin detemir (U-100) 100 9 units SUBCUT QPM #1 ml 10/07/18 11/08/18 History unit/mL (3 mL) subcutaneous pen semaglutide 0.25 mg or 0.5 mg (2 0.25 mg SQ .once per week #1.5 ml 10/07/18 11/08/18 Rx mg/1.5 mL) subcutaneous pen injector clonazepam 0.5 mg tablet 0.5 mg PO HS #30 tab 10/31/18 11/08/18 Rx benzonatate 100 mg capsule 100 mg PO TID PRN #30 cap 11/08/18 11/08/18 History bisoprolol 5 1 tab PO DAILY #30 tab 11/08/18 11/08/18 History mg-hydrochlorothiazide 6.25 mg tablet cholecalciferol (vitamin D3) 1,000 1,000 units PO DAILY cap 11/08/18 11/08/18 History unit capsule fluticasone propionate 50 1 sprays INTRANASAL DAILY PRN #1 gm 11/08/18 11/08/18 History mcg/actuation nasal spray,suspension ipratropium-albuterol 0.5 mg-3 3 ml INHALATION Q4H PRN #1 ml 11/08/18 11/08/18 History mg(2.5 mg base)/3 mL nebulization soln lisinopril 5 mg tablet 5 mg PO PM #1 tab 11/08/18 11/08/18 History metformin 1,000 mg tablet 1,000 mg PO BIDM #60 tab 11/08/18 11/08/18 History pioglitazone 15 mg tablet 15 mg PO DAILY #30 tab 11/08/18 11/08/18 History venlafaxine ER 150 mg 150 mg PO DAILY #30 cap 11/08/18 11/08/18 History capsule,extended release 24 hr Patient History Medical History Hypertension Type 2 diabetes mellitus Surgical History History of colonoscopy History of dilation and curettage History of tonsillectomy History of tooth extraction Family History Mother Myocardial infarction Grandmother Breast cancer Kidney disease Hypertension Aunt Alzheimer disease Social History Preferred Language: Greenlandic Communication Ability: Effective 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: No Beliefs That Will Affect Care: None Current Living Situation: Spouse current occupational status: retired Other Information That Helps Us Care for You: No Feels Safe at Home: Yes Safety Concerns: Feels Safe At This Time Smoking Status: Current every day smoker Tobacco Type: cigarettes ; Cigarettes Per Day: 15 ; Do You Dip or Chew Tobacco: No ; Tobacco Cessation Education Requested by Patient: No Hx Alcohol Use: No Hx Substance Use: No Dental Care, Regularly: No Review of Systems Constitutional: no fever, no chills and no fatigue Eyes: as per Subjective / HPI; no diplopia and no eye pain Ear, Nose, Mouth, Throat: no tinnitus and no hearing loss Respiratory: no cough and no dyspnea Cardiovascular: no chest pain and no palpitations Gastrointestinal: no nausea and no vomiting Genitourinary: no dysuria Musculoskeletal: no myalgia Integumentary: no rash and no lesions Neurologic: as per Subjective / HPI Psychiatric: no depression and no anxiety Hematologic / Lymphatic: no easy bleeding and no easy bruising Physical Exam Physical Exam: The patient is a well-developed, well-nourished elderly female. She is alert and fully oriented. Recent and remote memory intact. Attention and concentration normal. Patient exhibits a normal spontaneous speech pattern as well as an age-appropriate fund of knowledge and normal comprehension of vocabulary. Visual garcia full to confrontation. Visual acuity normal. Pupils equal round react to light and accommodation. Eye movements normal. There is no nystagmus. Facial sensation intact. There is no facial droop or facial weakness. Hearing intact. Palate elevates to midline. Shoulder shrug intact. Tongue protrudes to midline. Sensation intact to all modalities in all 4 limbs. Deep tendon reflexes are diminished throughout, 1+ for the arms and legs bilaterally, plantar responses downgoing bilaterally. There is no dysdiadochokinesia or dysmetria [id number] or [id number] bilaterally. Ophthalmoscopic examination reveals normal-appearing optic disks and posterior segments. No papilledema or hemorrhages. Carotid pulses normal bilaterally, no bruits to auscultation. Gait and station not tested due to safety concerns. Patient exhibits normal muscle strength and tone for all 4 limbs. No atrophy. No abnormal movements observed. Results & Data Vital Signs (Past 12 Hours) Vital Signs Temp Pulse Pulse Resp BP BP Pulse Ox 11/09/18 07:48 36.8 C 96 H 18 140/85 96 11/09/18 03:15 36.9 C 81 22 122/78 94 11/09/18 00:00 86 19 11/08/18 23:00 81 16 11/08/18 22:05 158/92 H 11/08/18 21:43 98 11/08/18 21:21 36.7 C 85 16 148/83 H 99 11/08/18 21:15 98 Laboratory Results WBC 10.09, hemoglobin 14.4, hematocrit 42.5, platelet count 199, sodium 141, potassium 3.9, BUN 15, creatinine 0.95, glucose 127, calcium 9.3, magnesium 1.6, TSH 1.[address] of the head completed November 08, 2018- for hemorrhage, mass-effect, or acute process. I reviewed the images as well as the radiologist interpretation of this test. CTA of the head unremarkable. CTA of the neck reveals 50% narrowing of the carotid bifurcations and proximal internal carotid arteries bilaterally. Normal vertebrobasilar system. MRI of the brain negative for acute or subacute stroke. There are scattered foci of T2 hyperintensity consistent with chronic microvascular ischemic change of moderate severity. I reviewed the images as well as the radiologist interpretation of this test. Electrocardiogram reveals normal sinus rhythm, 85 bpm. PG Care Time/CCT Total # of Minutes Spent Total Time Spent with Patient: Total time spent is greater than 50% in coordination of care (as documented) at patient's floor/unit and/or counseling patient:
[2018-11-09 10:10] LABS: Basophils # (auto) 0.04 K/uL (0-0.2); Basophils % (auto) 0.4 %; Eosinophils # (auto) 0.01 K/uL (0-0.5); Eosinophils % (auto) 0.1 %; Hematocrit (blood only) 40.4 % (37-47); Hemoglobin 14.1 g/dL (12.0-16.0); Immature Granulocytes # (auto) 0.06 K/uL (0.00-0.02); Immature Granulocytes % (auto) 0.6 %; Lymphocytes # (auto) 1.25 K/uL (1.2-3.4); Lymphocytes % (auto) 11.5 %; Mean Corpuscular Hgb Conc 34.9 g/dL (32-36); Mean Corpuscular Volume 84.7 fL (80-100); Mean Platelet Volume 10.7 fL (7.4-10.4); Monocytes # (auto) 0.29 K/uL (0.11-0.59); Monocytes % (auto) 2.7 %; Neutrophils # (auto) 9.25 K/uL (1.4-6.5); Neutrophils % (auto) 84.7 %; Platelet Count 210 K/uL (130-400); RDW Coefficient of Variation 13.9 % (11.5-14.5); RDW Standard Deviation 43.2 fL (36.4-46.3); Red Blood Count 4.77 M/uL (4.2-5.4)
[2018-11-09 10:37] LABS: BUN Creatinine Ratio 17.6 (10-20); Calcium 9.1 mg/dl (8.5-10.1); Creatinine Clr Calc Pharmacy 65.7 ml/min; Est GFR (African American) 73.1
[2018-11-09] MEDS ORDERED: PHARMACIST DISCHARGE MED REC CONSULT PRN (12:19)
[2018-11-09] MEDS ORDERED: STROKE PATIENT DISCHARGE STA (12:31)
[2018-11-09 13:09] LABS: Estimated Average Glucose 180 mg/dl; Hemoglobin A1C 7.9 % (4.5-5.6)
--- NOTE | 2018-11-09 14:18 | Pharmacy Report ---
Pharmacist Stroke Counseling - Date of Service November 09, 2018 - Scope: Pharmacy has been consulted to provide medication discharge counseling for this patient admitted with [transient ischemic attack] as per the Pharmacist Discharge Counseling for Stroke Patients Protocol. - Medications on Discharge: Home Medications Medication Instructions Recorded Confirmed albuterol sulfate HFA 90 1 - 2 puff INHALATION QID PRN #3 gm 09/30/18 11/08/18 mcg/actuation aerosol inhaler insulin detemir (U-100) 100 9 units SUBCUT QPM #1 ml 10/07/18 11/08/18 unit/mL (3 mL) subcutaneous pen benzonatate 100 mg capsule 100 mg PO TID PRN #30 cap 11/08/18 11/08/18 bisoprolol 5 1 tab PO DAILY #30 tab 11/08/18 11/08/18 mg-hydrochlorothiazide 6.25 mg tablet cholecalciferol (vitamin D3) 1,000 1,000 units PO DAILY cap 11/08/18 11/08/18 unit capsule fluticasone propionate 50 1 sprays INTRANASAL DAILY PRN #1 gm 11/08/18 11/08/18 mcg/actuation nasal spray,suspension ipratropium-albuterol 0.5 mg-3 3 ml INHALATION Q4H PRN #1 ml 11/08/18 11/08/18 mg(2.5 mg base)/3 mL nebulization soln lisinopril 5 mg tablet 5 mg PO PM #1 tab 11/08/18 11/08/18 metformin 1,000 mg tablet 1,000 mg PO BIDM #60 tab 11/08/18 11/08/18 pioglitazone 15 mg tablet 15 mg PO DAILY #30 tab 11/08/18 11/08/18 venlafaxine ER 150 mg 150 mg PO DAILY #30 cap 11/08/18 11/08/18 capsule,extended release 24 hr Medication Instructions Recorded semaglutide 0.25 mg or 0.5 mg (2 0.25 mg SQ .once per week #1.5 ml 10/07/18 mg/1.5 mL) subcutaneous pen injector clonazepam 0.5 mg tablet 0.5 mg PO HS #30 tab 10/31/18 aspirin [Ecotrin Low Strength] 81 mg PO DAILY #30 tab 11/09/18 atorvastatin 40 mg PO HS #30 tab 11/09/18 - Action: The above medications, specifically ones for stroke treatment/prophylaxis, have been reviewed in detail with the patient and/or patient veterans contact representative(s) prior to discharge. This includes indication, common adverse reactions, drug interactions, and medication administration. Medication counseling has been employed using the teach-back method to ensure understanding. - Outcome: The patient and/or patient veterans contact representative(s) have demonstrated understanding of the medications. Please note, they are aware that the pharmacist will call them within 72 hours post-discharge to confirm that the appropriate medications are being taken and answer any further medication related questions the patient might have at that time. Contact information Individual to be contacted: patient Relationship to patient (if applicable): n/a Phone number: [phone] Best time to call: anytime Additional comments: Patient very friendly to talk with today. New medications on discharge included aspirin and statin medication. Talked about monitoring parameters with both. Patient familiar with statin medication as her is also on it. No questions during interview. Patient very sleepy. Stated she has not been sle eping well in the hospital but also says she sleeps a lot at home. Asked her if she ever got her thyroid checked and patient states she has a test for that coming up. No other pertinent positives on interview. Patient aware we will call her post discharge. Thank you for allowing pharmacy to be involved in the care of this patient. Please call [phone] or [phone] with any additional questions
[2018-11-09] MEDS ORDERED: LISINOPRIL 5 MG TAB PO SCH (21:00)
[2018-11-09] MEDS ORDERED: clonazePAM 0.5 MG TAB PO SCH (21:00)
--- NOTE | 2018-11-10 14:38 | Pharmacy Report ---
Pharmacist Post D/C Phone Note - Phone Note: Date of phone call: November 10, 2018. Individual with whom pharmacist spoke to: VIOLETTE Sai MERINO The following questions were reviewed during the phone call with responses listed below each: Can you tell me the medications that you are currently taking as well as when and how you take each medication? -See Table Below When have you missed any doses of your medications? - Patient has not taken medications yet today, she is picking them up today and starting them today. What side effects are you having from your medications, specifically, the new medications you were started on? - None What questions do you have about your medications? - None, I did have to review the new medications with her, she did sound sleepy on the phone. What problems are you having obtaining your medications? - She will pick them up today. When is your next appointment with your primary care doctor? - Tomorrow. Additional comments: - Patient reports she was scheduled for biopsy on thyroid on Wednesday, she states her information states to stop aspirin prior to procedure. I directed her to call that ENT to see what they would like to do and also to discuss with her primary care doctor tomorrow at her appointment, that they may want to postpone the biopsy d/t recent admission and TIA. As per the Pharmacist Discharge Counseling for Stroke Patients Protocol, this phone call has been completed within 72 hours of discharge. Thank you for allowing us to be involved in the care of this patient. - Home Medications: Home Medications Medication Instructions Recorded Confirmed albuterol sulfate HFA 90 1 - 2 puff INHALATION QID PRN #3 gm 09/30/18 11/08/18 mcg/actuation aerosol inhaler insulin detemir (U-100) 100 9 units SUBCUT QPM #1 ml 10/07/18 11/08/18 unit/mL (3 mL) subcutaneous pen benzonatate 100 mg capsule 100 mg PO TID PRN #30 cap 11/08/18 11/08/18 bisoprolol 5 1 tab PO DAILY #30 tab 11/08/18 11/08/18 mg-hydrochlorothiazide 6.25 mg tablet cholecalciferol (vitamin D3) 1,000 1,000 units PO DAILY cap 11/08/18 11/08/18 unit capsule fluticasone propionate 50 1 sprays INTRANASAL DAILY PRN #1 gm 11/08/18 11/08/18 mcg/actuation nasal spray,suspension ipratropium-albuterol 0.5 mg-3 3 ml INHALATION Q4H PRN #1 ml 11/08/18 11/08/18 mg(2.5 mg base)/3 mL nebulization soln lisinopril 5 mg tablet 5 mg PO PM #1 tab 11/08/18 11/08/18 metformin 1,000 mg tablet 1,000 mg PO BIDM #60 tab 11/08/18 11/08/18 pioglitazone 15 mg tablet 15 mg PO DAILY #30 tab 11/08/18 11/08/18 venlafaxine ER 150 mg 150 mg PO DAILY #30 cap 11/08/18 11/08/18 capsule,extended release 24 hr New Rx's Medication Instructions Recorded semaglutide 0.25 mg or 0.5 mg (2 0.25 mg SQ .once per week #1.5 ml 10/07/18 mg/1.5 mL) subcutaneous pen injector clonazepam 0.5 mg tablet 0.5 mg PO HS #30 tab 10/31/18 aspirin [Ecotrin Low Strength] 81 mg PO DAILY #30 tab 11/09/18 atorvastatin 40 mg PO HS #30 tab 11/09/18
[2018-11-11] MEDS ORDERED: METFORMIN HCL 500 MG TAB PO SCH (08:00)
--- NOTE | 2018-11-17 21:53 | Discharge Summary ---
Date of Service November 09, 2018 Admission HPI Per Admitting Provider 73-year-old female presents with now resolved multiple focal neurologic symptoms. Subjectively, we discussed the following: - Patient says around 5:30 PM the evening prior to admission she was watching TV. She noticed the acute onset as if her visual field in the upper outer quadrant of both eyes appeared like it was "jumping" or as if it had wavy lines. She tried closing each eye individually with no change. This seemed to gradually resolve within 5 minutes. Following this she took aspirin 162 mg. - Shortly thereafter she went to lay down to rest, lying on her right side. She then noticed that her entire right hand and potentially her right forearm felt more numb. She also noticed that her lips felt "kind of numb". This lasted for about 3 to 5 minutes and then completely resolved. - At this point she decided to go to bed. Shortly thereafter her woke her up to check on her. He asked her to answer some basic questions which point the patient noted to have very garbled speech. This seemed to last for a few minutes and then also completely resolved. - Around this time the patient took ibuprofen 400 mg for mild frontal headache that has presently nearly resolved. She also along the way had some mild neck pain that presently has nearly resolved. - Patient says that perhaps 15 years ago she had the appearance of "a broken mirror" in her vision. She was evaluated at that time, told that it was related to a migraine, but notes that she has never had this since. She also denies chronic headaches. She says today's visual field changes do not seem the same as they were 15 years ago. - As a review of systems, patient says that she was on track to see her primary care provider today (Wed) for the feeling of some chest tightness over the past couple of days. She describes it is more of a dry cough but no actual pain, dyspnea on exertion, fevers or feeling of illness, or any actual real concern acutely over this. She does have history of COPD and was recently started on Spiriva in the past week. She is supposed to have some albuterol but she ran out. She would have otherwise tried some albuterol for this. - Past medical history includes hypertension, type 2 diabetes, pulmonary nodule, toxic multinodular goiter, anxiety, COPD. - Past surgical history includes colonoscopy, D&C, tonsillectomy. - Social history includes daily smoker for over 50 years. Denies alcohol use. Lives at home with . Principal Diagnosis TIA Discharge Exam GENERAL: Awake, alert, well-appearing, in no acute distress HENT: Normocephalic, atraumatic. Oropharynx unremarkable. Pupils PERRL, EOMI without noted visual field deficits including in the right upper quadrant. EYES: Normal conjunctiva. Sclera non-icteric. NECK: Inspection normal. Supple and full ROM. No nuchal rigidity. CARDIAC: +S1S2 RRR, no murmurs. RESPIRATORY: Clear to auscultation. No wheezes or rales. Normal respiratory effort. No present cough and speaking easily in full sentences. GI: +BS, soft, non-distended. No tenderness to palpation. No rebound or guarding. EXTREMITIES: No pedal edema or calf tenderness. Moving all extremities naturally and easily. NEURO: CN II through XII intact (IX not checked). Strength 5/5 in all extremities. Distal sensation equal and intact in all extremities. Discharge Data Allergies Allergy/AdvReac Type Severity Reaction Status Date / Time amoxicillin [From Augmentin] Allergy Severe Anaphylaxis Verified 11/11/18 13:51 cephalexin Allergy Severe Hives Verified 11/11/18 13:51 clavulanic acid Allergy Severe Anaphylaxis Verified 11/11/18 13:51 [From Augmentin] Consultations 11/09/18 03:51 Consult Neurology Routine Ordered Studies 11/08/18 21:43 CT head/brain wo con Stat 11/09/18 01:09 CT angio head w con Urgent CT angio neck with con Urgent MR brain wo con Routine Hospital Course (1) TIA (transient ischemic attack): 73-year-old female was admitted on 09 November 2017 for TIA symptoms. TIA symptoms, headache: Three different areas of TIA symptoms beginning around 1730 on day prior to admission. All presently resolved. Very remote history of suspected complex migraine with no interval headaches or similar symptoms. Home blood sugar was 127 and normal here as well. No focal neuro deficits on exam. ABCD2 score of FOUR (moderate risk). - In ED, afebrile, not tachycardic or tachypneic, mild hypertension, with normal room SpO2. WBC 10. Troponin negative. EKG is NSR 85. TSH normal. CT the head was nonacute. pCXR showed no active disease but a positive chronic right hemidiaphragm elevation with associated atelectasis. -At home was treated with aspirin 162 mg and ibuprofen 400 mg. In ED, treated with Tylenol, normal saline IVF, and aspirin 162 mg. - Ordered MRI noncontrast of the brain, CTA of the head and the neck, echocardiogram, updated hemoglobin A1c, and lipid panel. Will treat her mild residual headache with Decadron. Neurology consulted for a.m. Hypomagnesemia: Admit Mg 1.6. Will replace. Chest tightness, history of COPD: No actual reported pain. EKG and troponin normal as above. Suspect some level of very mild COPD exacerbation. Was recently started on Spiriva. - Would benefit from as needed albuterol nebs. Single dose of Decadron for her headache may help with this as well. - Discussed at length that she should follow-up with her primary care provider for more chronic management of her symptoms. Consider d/c home with refill of albuterol. Ongoing medical issues: - Hypertension: Continue home lisinopril, bisoprololhydrochlorothiazide. - Diabetes type 2: At home is on metformin, glitazone, Ozempic, as well as Levemir 9 units every evening. As inpatient, will keep on her Levemir as well as insulin sliding scale for now. - Anxiety/depression: Continue home clonazepam at night as well as venlafaxine. Code status: Full code. Diet: DM2. DVT prophy: SCDs and ambulation. PT/OT: Deferred. Appreciate input from neuro: I suspect this patient had a TIA localizing to the left cerebral hemisphere. Her reported vision disturbance involving the right upper outer quadrant would localize to the optic radiations within the left temporal lobe (rather than the occipital lobe). The reported right sided numbness and aphasia would localize to the left cerebral hemisphere/left MCA territory as well. She is currently neurologically intact and her symptoms have resolved. Her brain MRI is negative for acute or subacute infarct but does reveal moderately extensive chronic microvascular ischemic disease. The bilateral carotid stenoses are probably incidental but should be followed periodically as an outpatient with ultrasound. There was no suggestion of plaque rupture or significant intracranial stenosis on CT angiography. I would recommend checking a fasting lipid panel and in fact she would probably benefit from starting a statin given the presence of carotid atherosclerotic disease. I agree with continuing daily low-dose aspirin, 81 mg/day as she was not taking antiplatelet medication as an outpatient. Follow- up with results of echocardiogram. I agree with smoking cessation. No further immediate neurological recommendations. Echo was completed and was negative. (2) Headache: (3) Hypomagnesemia: (4) Chest tightness: (5) COPD (chronic obstructive pulmonary disease): (6) Essential (primary) hypertension: (7) Type 2 diabetes mellitus without complications: (8) Anxiety disorder: (9) Depression: Total Time Total Time Spent Total Time Spent (In Minutes): 32 Discharge Plan Discharge Items Patient Disposition: Home - Self-Care Reason For Visit: CONFUSION, NUMBNESS, JUMPY VISION, SLURRED SPEECH Discharge Diagnosis: TIA Discharge Goals: Decrease discomfort Activity: Resume your previous activity Non-emergency contact: Primary Care Provider Call non-emergency contact if: you have any medication questions Follow-up/Referrals: Kael Guzman DO [Primary Care Provider] - Diet: Heart Healthy and Low Sodium (2gm) Addtl Provider Instructions: Risk Factors for Stroke: You can reduce your chances of stroke by working with your medical provider to adopt a healthy lifestyle. Some specific ways to lower your chance of stroke are: * If you are a smoker, now is the time to stop smoking cigarettes * If you are diabetic, improve the control of your blood sugars * Avoid excessive amounts of alcohol * Control high blood pressure * Lose weight if you are overweight * Be sure to lead an active lifestyle * Eat a healthy diet low in salt, cholesterol and fat You should know about other risk factors for stroke that you are unable to control. These include: * Age 55 years or older * Male gender * Certain racial groups: , or / * Family History of Stroke, Mini stroke or Heart Attack * Sickle Cell Disease Follow Up: It is important for you to keep your follow up appointments with your medical provider. Who to Call and When: Medical Emergencies: Call 911 immediately if you experience any of the following warning signs and symptoms of Stroke: * Sudden numbness or weakness of the face, arm or leg, especially on one side of the body * Sudden confusion, trouble speaking or understanding * Sudden trouble seeing in one or both eyes * Sudden trouble walking, dizziness, loss of balance or coordination * Sudden severe headache with no cause Do not delay calling 911 if you experience any warning signs or symptoms of a stroke. Delay in seeking medical attention may affect what treatments can be given to you. . Prescriptions: Continued clonazepam 0.5 mg tablet 0.5 mg PO HS Qty: 30 RF: 0 albuterol sulfate 90 mcg/actuation HFA aerosol inhaler 1 - 2 puff inhalation QID PRN (Reason: Shortness Of Breath Or Wheezing) Qty: 3 RF: 0 benzonatate 100 mg capsule 100 mg PO TID PRN (Reason: Shortness Of Breath Or Wheezing) Qty: 30 RF: 0 bisoprolol-hydrochlorothiazide 5-6.25 mg tablet 1 tab PO DAILY Qty: 30 RF: 0 cholecalciferol (vitamin D3) 1,000 unit capsule 1,000 units PO DAILY RF: 0 fluticasone propionate 50 mcg/actuation spray,suspension 1 sprays intranasal DAILY PRN (Reason: congested) Qty: 1 RF: 0 ipratropium-albuterol 0.5 mg-3 mg(2.5 mg base)/3 mL solution for nebulization 3 ml inhalation Q4H PRN (Reason: Shortness Of Breath Or Wheezing) Qty: 1 RF: 0 lisinopril 5 mg tablet 5 mg PO PM Qty: 1 RF: 0 metformin 1,000 mg tablet 1,000 mg PO .BID, ON HOLD Qty: 60 RF: 0 pioglitazone 15 mg tablet 15 mg PO DAILY Qty: 30 RF: 0 venlafaxine 150 mg capsule,extended release 24hr 150 mg PO DAILY Qty: 30 RF: 0 No Action Levemir FlexTouch U-100 Insuln 100 unit/mL (3 mL) insulin pen 9 units subcut HS Qty: 15 RF: 1 atorvastatin 40 mg tablet 40 mg PO HS Qty: 30 RF: 0 clopidogrel 75 mg tablet 75 mg PO DAILY Qty: 90 RF: 3 Ozempic 0.25 mg or 0.5 mg(2 mg/1.5 mL) pen injector 0.25 mg SQ .once per week Qty: 1.5 RF: 5 ranitidine HCl 150 mg tablet 150 mg PO BID Qty: 60 RF: 2 Stand-Alone Forms: [facility] Discharge Orders: Discharge Order (Routine); Ordered 11/09/18 Ordered By: Patrick Martínez Admission Data Admit Date/Time: 11/09/18 01:09 Attending Provider: Patrick Martínez Admit Provider: Thaddeus Orellana Primary Care Provider: Kael Guzman Other Providers: Manny Diaz III Service: Telemetry Medical Other Interventions: Discharge Summary Assessment (RN) Last Done: 11/09/18 12:58 DC Date/Time DO NOT enter until pt leaves facility: 11/09/18 16:10
== END 2018-11-09 16:10 | disposition home or self-care (01) ==
LOC: ED 21:14 → 2W 21:14 → SUATTDRO 11-09 01:09 → 2W 11-09 01:45
DX: R41.0 Disorientation, unspecified; E83.42 Hypomagnesemia; R47.81 Slurred speech; I67.2 Cerebral atherosclerosis; F41.8 Other specified anxiety disorders; E11.9 Type 2 diabetes mellitus without complications; Z79.899 Other long term (current) drug therapy; R20.0 Anesthesia of skin; G45.9 Transient cerebral ischemic attack, unspecified; J44.9 Chronic obstructive pulmonary disease, unspecified

== ENCOUNTER 2018-12-17 20:50 | Inpatient (IN) ==
[2018-12-17] MEDS ORDERED: SODIUM CHLORIDE 0.9% 500 ML IV SCH (21:15)
[2018-12-17 21:45] LABS: Basophils # (auto) 0.07 K/uL (0-0.2); Basophils % (auto) 0.7 %; Eosinophils # (auto) 0.11 K/uL (0-0.5); Hematocrit (blood only) 43.5 % (37-47); Hemoglobin 14.4 g/dL (12.0-16.0); Immature Granulocytes # (auto) 0.06 K/uL (0.00-0.02); Immature Granulocytes % (auto) 0.6 %; Lymphocytes % (auto) 20.6 %; Mean Corpuscular Hemoglobin 29.4 pg (25-34); Mean Corpuscular Hgb Conc 33.1 g/dL (32-36); Mean Corpuscular Volume 88.8 fL (80-100); Mean Platelet Volume 11.6 fL (7.4-10.4); Monocytes % (auto) 5.6 %; Neutrophils # (auto) 7.64 K/uL (1.4-6.5); Neutrophils % (auto) 71.5 %; Platelet Count 171 K/uL (130-400); RDW Coefficient of Variation 14.2 % (11.5-14.5); RDW Standard Deviation 45.9 fL (36.4-46.3); White Blood Count 10.68 K/uL (4.8-10.8)
[2018-12-17 22:01] LABS: Albumin Level 3.2 gm/dl (3.4-5.0); BUN Creatinine Ratio 16.4 (10-20); Calcium 9.1 mg/dl (8.5-10.1); Creatinine Clr Calc Pharmacy 55.9 ml/min; Est GFR (African American) 58.7; Est GFR (Non-African American) 50.7; Magnesium 1.3 mg/dl (1.8-2.4)
[2018-12-17 22:06] LABS: Albumin Globulin Ratio 1.1 (0.9-2); Bilirubin,Total 0.4 mg/dl (0.2-1); Total Protein 6.2 gm/dl (6.4-8.2); Troponin I 0.021 ng/ml (0-0.045)
--- NOTE | 2018-12-17 22:16 | XRay Report ---
XR chest 1V portable HISTORY: Atypical Chest Pain COMPARISON: Chest 11/08/2018. FINDINGS: Chronic elevation of the right hemidiaphragm. No pneumothorax. No pleural effusions. The he art is normal in size. The lungs are clear. Calcified subcarinal lymph nodes are again noted. IMPRESSION: No significant change compared to the prior study. No acute process. Electronically signed by: Adelfo Sanchez M.D. 12/17/2018 10:15 PM
[2018-12-17] MEDS ORDERED: MAGNESIUM OXIDE 400 MG TAB PO STA (22:38)
[2018-12-17] MEDS ORDERED: MAGNESIUM SULFATE / D5W 1 GM/100 ML BAG IV ONE (22:38)
--- NOTE | 2018-12-18 00:55 | Emergency Department Note ---
Entered by Carmen Hunter acting as a scribe for Chapin Raza MD History of Present Illness General Chief complaint: Cardiac Assessment Stated complaint: TACHYCARDIA Time Seen by Provider: 12/17/18 21:06 Source: patient History of Present Illness Provider complaint: dizziness Onset (ago): hour(s) 2 Location: chest Severity: similar to prior episodes Relieved By: not by rest Associated symptoms: + headaches and + other (+neck pain, +ear pain) The patient is a 73 year old female who presents to the Emergency Room with complaints of a dizziness episode that occurred 2 hours ago as she stood up. She reports that when she sat back down she still was lightheaded and her heart rate was fast. The patient reports that she has had a similar episode 2 months ago. She notes that at that time her heart rate was high, but it resolved on its own. She reports that today with this episode she had pain in her head, neck, and ears. She notes that her pain was a 7/10. The patient states that she has a history of SVT and palpitations. Per EMS, the patient stood up and felt dizzy. They report her heart rate was at 200 at that time. The EKG that was done by the EMS crew showed evidence of SVT with a rate of 216. They gave her 6 mg of IV adenosine and a normal saline bolus. Home Medications Home Medications Medication Instructions Recorded Confirmed Type albuterol sulfate HFA 90 1 - 2 puff INHALATION QID PRN #3 gm 09/30/18 12/17/18 History mcg/actuation aerosol inhaler bisoprolol 5 1 tab PO DAILY #30 tab 11/08/18 12/17/18 History mg-hydrochlorothiazide 6.25 mg tablet cholecalciferol (vitamin D3) 1,000 1,000 units PO DAILY cap 11/08/18 12/17/18 History unit capsule fluticasone propionate 50 1 sprays INTRANASAL DAILY PRN #1 gm 11/08/18 12/17/18 History mcg/actuation nasal spray,suspension ipratropium-albuterol 0.5 mg-3 3 ml INHALATION Q4H PRN #1 ml 11/08/18 12/17/18 History mg(2.5 mg base)/3 mL nebulization soln lisinopril 5 mg tablet 5 mg PO PM #1 tab 11/08/18 12/17/18 History metformin 1,000 mg tablet 1,000 mg PO BID #60 tab 11/08/18 12/17/18 History pioglitazone 15 mg tablet 15 mg PO DAILY #30 tab 11/08/18 12/17/18 History atorvastatin 40 mg tablet 40 mg PO HS #30 tab 11/11/18 12/17/18 Rx clopidogrel 75 mg tablet 75 mg PO DAILY #90 tab 11/11/18 12/17/18 Rx ranitidine 150 mg tablet 150 mg PO BID #60 tab 11/11/18 12/17/18 Rx semaglutide 0.25 mg or 0.5 mg (2 0.25 mg SQ .once per week #1.5 ml 11/11/18 12/17/18 Rx mg/1.5 mL) subcutaneous pen injector insulin detemir (U-100) 100 9 units SUBCUT HS #15 ml 11/21/18 12/17/18 Rx unit/mL (3 mL) subcutaneous pen clonazepam 0.5 mg tablet 0.5 mg PO HS #30 tab 12/05/18 12/17/18 Rx venlafaxine ER 150 mg 150 mg PO DAILY #90 cap 12/16/18 12/17/18 Rx capsule,extended release 24 hr acetaminophen [Tylenol Extra 1,000 mg PO Q6H PRN 12/17/18 12/17/18 History Strength] aspirin 81 mg PO DAILY 12/17/18 12/17/18 History biotin 10,000 mcg PO DAILY 12/17/18 12/17/18 History Allergies Allergy/AdvReac Type Severity Reaction Status Date / Time amoxicillin [From Augmentin] Allergy Severe Anaphylaxis Verified 12/17/18 22:00 cephalexin Allergy Severe Hives Verified 12/17/18 22:00 clavulanic acid Allergy Severe Anaphylaxis Verified 12/17/18 22:00 [From Augmentin] Past Med/Surg History Medical History Hypertension Type 2 diabetes mellitus Surgical History History of colonoscopy History of dilation and curettage History of tonsillectomy History of tooth extraction Family History Mother Myocardial infarction Grandmother Breast cancer Kidney disease Hypertension Aunt Alzheimer disease Social History Preferred Language: Divehi Communication Ability: Effective Emergency Medical Technician/Driver Required: No Beliefs That Will Affect Care: None Current Living Situation: Spouse current occupational status: retired Feels Safe at Home: Yes Smoking Status: Current every day smoker Tobacco Type: cigarettes ; Cigarettes Per Day: 15 ; Hx Alcohol Use: No Hx Substance Use: No Dental Care, Regularly: No Review of Systems See HPI for pertinent positives & negatives. and A total of 10 systems reviewed and were otherwise negative Physical Exam Vital Signs Vital Signs - 24 hr 12/17/18 20:58 12/17/18 21:05 12/17/18 21:38 Temperature 36.6 C Temperature Source Oral Sepsis Recent Fever Within 48 Hours No Sepsis Action Taken by Nursing No Action Required Pulse Rate 99 H Pulse Rate [Bilateral Apical] 95 H Respiratory Rate 20 18 Respiratory Effort / Characteristics Non-Labored Respiratory Depth Normal Blood Pressure 122/66 Blood Pressure [Left Arm] 107/73 Blood Pressure Mean 84 Blood Pressure Mean [Left Arm] 84 Pulse Oximetry 100 100 99 Oxygen Delivery Method Room Air Room Air Room Air 12/17/18 22:34 12/17/18 22:36 12/17/18 23:51 Temperature Temperature Source Sepsis Recent Fever Within 48 Hours Sepsis Action Taken by Nursing Pulse Rate Pulse Rate [Bilateral Apical] 91 H 87 82 Respiratory Rate 18 18 18 Respiratory Effort / Characteristics Respiratory Depth Blood Pressure Blood Pressure [Left Arm] 103/61 103/61 121/73 Blood Pressure Mean Blood Pressure Mean [Left Arm] 75 75 89 Pulse Oximetry 96 98 98 Oxygen Delivery Method Room Air Room Air Room Air 12/18/18 00:36 Temperature Temperature Source Sepsis Recent Fever Within 48 Hours Sepsis Action Taken by Nursing Pulse Rate Pulse Rate [Bilateral Apical] 86 Respiratory Rate 20 Respiratory Effort / Characteristics Respiratory Depth Blood Pressure Blood Pressure [Left Arm] 129/71 Blood Pressure Mean Blood Pressure Mean [Left Arm] 90 Pulse Oximetry 94 Oxygen Delivery Method Room Air GENERAL: Patient is in no acute distress. HEENT: No acute trauma, normocephalic atraumatic, mucous membranes moist, no nasal congestion, no scleral icterus. NECK: No stridor, no adenopathy, no meningismus, trachea is midline. LUNGS: Clear to auscultation bilaterally, no wheeze, no rhonchi, breath sounds equal, somewhat diminished breath sounds bilaterally. HEART: Without murmurs gallops or rubs, regular rate and rhythm. ABDOMEN: Soft, nontender, bowel sounds positive, no hernias, no peritonitis. EXTREMITIES: No cyanosis or edema, full range of motion of all the joints without pain or difficulty, no signs for acute trauma. NEUROLOGIC: Oriented x 3, no acute motor or sensory deficits, no focal weakness. SKIN: No rash, no jaundice, no diaphoresis. Course 2108: The patient was evaluated in room C9, and a complete history and physical examination were performed. 2308: I reevaluated the patient and updated her on here results. 0022: I reevaluated the patient and updated her on her results, she is resting c omfortably. 0042: I reviewed the patient's case with Dr. Knutson- [facility] Hospitalist. He will evaluate the patient for further management. Administered Medications Discontinued Medications Sodium Chloride (Nss) 500 mls @ 999 mls/hr IV .Q31M PAVITHRA Stop: 12/17/18 21:45 Last Infusion: 12/17/18 22:37 Dose: 0 mls/hr Documented by: [id number] Admin: 12/17/18 21:28 Dose: 999 mls/hr Documented by: [id number] Magnesium Sulfate/Dextrose (Magnesium Sulfate / D5w) 1 gm in 100 mls @ 100 mls/hr IV ONE ONE Stop: 12/17/18 23:37 Last Infusion: 12/17/18 23:50 Dose: 0 mls/hr Documented by: [id number] Admin: 12/17/18 22:52 Dose: 100 mls/hr Documented by: [id number] Magnesium Oxide (Mag-Ox) 400 mg PO NOW STA Stop: 12/17/18 22:39 Last Admin: 12/17/18 22:52 Dose: 400 mg Documented by: [id number] Medical Decision Making Differential Diagnosis Differential diagnosis includes: SVT, atrial fibrillation, atrial flutter, cardiac ischemia/ [place], electrolyte imbalance, renal failure, and dehydration. Medical Records Attestation: I reviewed the patient's medical records. Home Medications Current Medication List: was personally reviewed by me Laboratory Data Attestation: I reviewed the patient's lab results. Result diagrams: 12/17/18 21:32 12/17/18 21:32 Lab Results 12/17/18 12/17/18 12/17/18 Range/Units 21:32 21:32 23:30 WBC 10.68 (4.8-10.8) K/uL RBC 4.90 (4.2-5.4) M/uL Hgb 14.4 (12.0-16.0) g/dL Hct 43.5 (37-47) % MCV 88.8 (80-100) fL MCH 29.4 (25-34) pg MCHC 33.1 (32-36) g/dL RDW Std Deviation 45.9 (36.4-46.3) fL RDW Coeff of Kofi 14.2 (11.5-14.5) % Plt Count 171 (130-400) K/uL MPV 11.6 H (7.4-10.4) fL Immature Gran % (Auto) 0.6 % Neut % (Auto) 71.5 % Lymph % (Auto) 20.6 % [place] % (Auto) 5.6 % Eos % (Auto) 1.0 % Baso % (Auto) 0.7 % Immature Gran # (Auto) 0.06 H (0.00-0.02) K/uL Neut # (Auto) 7.64 H (1.4-6.5) K/uL Lymph # (Auto) 2.20 (1.2-3.4) K/uL [place] # (Auto) 0.60 H (0.11-0.59) K/uL Eos # (Auto) 0.11 (0-0.5) K/uL Baso # (Auto) 0.07 (0-0.2) K/uL Sodium 142 (136-145) mmol/L Potassium 4.0 (3.5-5.1) mmol/L Chloride 108 H (98-107) mmol/L Carbon Dioxide 24 (21-32) mmol/L Anion Gap 10.0 (3-11) BUN 18 (7-18) mg/dl Creatinine 1.09 (0.6-1.2) mg/dl Est Cr Clr Drug Dosing 55.9 ml/min Est GFR ( Amer) 58.7 Est GFR (Non-Af Amer) 50.7 BUN/Creatinine Ratio 16.4 (10-20) Glucose 154 H (70-99) mg/dl Calcium 9.1 (8.5-10.1) mg/dl Magnesium 1.3 L (1.8-2.4) mg/dl Total Bilirubin 0.4 (0.2-1) mg/dl AST 13 L (15-37) U/L ALT 15 (12-78) U/L Alkaline Phosphatase 67 (45-117) U/L Troponin I 0.021 0.106 H* (0-0.045) ng/ml Total Protein 6.2 L (6.4-8.2) gm/dl Albumin 3.2 L (3.4-5.0) gm/dl Globulin 3.0 (2.5-4.0) gm/dl Albumin/Globulin Ratio 1.1 (0.9-2) Imaging Data Radiologist's Impression: Radiology results as stated below per my review and the radiologist's interpretation: XR chest 1V portable HISTORY: Atypical Chest Pain COMPARISON: Chest 11/08/2018. FINDINGS: Chronic elevation of the right hemidiaphragm. No pneumothorax. No pleural effusions. The heart is normal in size. The lungs are clear. Calcified subcarinal lymph nodes are again noted. IMPRESSION: No significant change compared to the prior study. No acute process. Electronically signed by: Adelfo Sanchez M.D. 12/17/2018 10:15 PM ECG Data Attestation: I personally reviewed and interpreted this ECG as follows: Indication: tachycardia Rate (beats per minute): 97 Rhythm: normal sinus Findings: + other (QTC 477); no ST elevation and no acute ischemic change Comparison ECG Date: no prior available Blood Pressure Blood Pressure Findings: Normal blood pressure Blood Pressure Disposition: did not require urgent referral MDM Narrative There is no leukocytosis or concerning anemia. No evidence for renal failure. Patient does have a low magnesium at 1.3. No worrisome liver enzyme elevation. Chest film does not show pneumonia or CHF. EKG performed by EMS showed SVT with a heart rate over 200. EKG here at our hospital showed a normal sinus rhythm, no acute ischemia. Cardiac enzyme testing x2 was performed. Patient does have an elevation to the second cardiac troponin indicating some cardiac strain/injury. Of note, the patient was given IV adenosine, 6 mg in route. This broke her SVT to a sinus rhythm. She felt improvement of her symptoms with the normalization of her heart rate. Here in our ED, the patient received IV and oral magnesium, she was given IV sa line. Patient presents with a bout of dizziness and SVT. She had pain in her neck and ears. She does have an elevation to the cardiac troponin. She carries cardiac risk factors. I do think a hospital stay is warranted. I spoke to the patient and case management. The on-call hospitalist was co nsulted. I did place a call to cardiology. Impression & Plan SVT (supraventricular tachycardia), Elevated troponin, Hypomagnesemia, Dizz iness Discharge Plan Visit Data *Final* Discharge Date/Time: 12/18/18 01:34 Chief Complaint: Cardiac Assessment Stated Complaint: TACHYCARDIA ED Provider: Chapin Raza Discharge Problem: SVT (supraventricular tachycardia), Elevated troponin, Hypomagnesemia, Dizziness Patient Disposition: Admitted As Inpatient Discharge Instructions Interventions: ED Discharge Assessment Last Done: 12/18/18 01:34 The alejandraibe's documentation has been prepared under my direction and personally reviewed by me in its entirety. I confirm that the note above accurately reflects all work, treatment, procedures, and medical decision making performed by me.
[2018-12-18] MEDS ORDERED: FAMOTIDINE 20 MG TAB PO STA (01:33)
[2018-12-18] MEDS ORDERED: CLOPIDOGREL BISULFATE 75 MG TAB PO STA (01:33)
[2018-12-18] MEDS ORDERED: ATORVASTATIN 40 MG TAB PO STA (01:33)
[2018-12-18] MEDS ORDERED: INSULIN DETEMIR FLEXPEN/FLEX TOUCH 100 UNITS/ML 3ML SC STA (01:34)
[2018-12-18] MEDS ORDERED: ACETAMINOPHEN 325 MG TAB PO PRN (01:53)
[2018-12-18] MEDS ORDERED: ALUMINUM/MAGNESIUM SUSP 30 ML UDC PO PRN (01:53)
[2018-12-18] MEDS ORDERED: GLUCOSE 10 TABS/TUBE PO PRN (01:53)
[2018-12-18] MEDS ORDERED: DEXTROSE 50% 50 ML SYRINGE IV PRN (01:53)
[2018-12-18] MEDS ORDERED: ACETAMINOPHEN 500 MG TAB PO PRN (01:53)
[2018-12-18] MEDS ORDERED: MAGNESIUM HYDROXIDE SUSP 30 ML UDC PO PRN (01:53)
[2018-12-18] MEDS ORDERED: CARBOHYDRATES FOR HYPOGLYCEMIA PO PRN (01:53)
[2018-12-18] MEDS ORDERED: GLUCOSE 40% GEL 15 GM TUBE PO PRN (01:53)
[2018-12-18] MEDS ORDERED: FLUTICASONE PROPIONATE NA SPR 16 GM BTL NAE PRN (01:53)
[2018-12-18] MEDS ORDERED: ALBUT/IPRATROP 3MG/0.5MG NEB 3 ML VIAL INH PRN (01:53)
[2018-12-18] MEDS ORDERED: GLUCAGON FOR INJ 1 MG VIAL SQ PRN (01:53)
[2018-12-18] MEDS ORDERED: ONDANSETRON INJ 2 MG/ML 2 ML VIAL IV PRN (01:53)
[2018-12-18] MEDS ORDERED: ALBUTEROL HFA 8 GM INHALER INH PRN (01:53)
[2018-12-18] MEDS: MAGNESIUM SULFATE / D5W 1 GM/100 ML BAG IV SCH ×3 (02:37→04:32)
--- NOTE | 2018-12-18 02:56 | History & Physical Report ---
Date of Service December 18, 2018 Assessment & Plan (1) SVT (supraventricular tachycardia): Peak heart rate was noted at 216. Resolved with adenosine 6 mg IV. She is remained in normal sinus rhythm while in the ED. Magnesium level 1.3 upon admission, there is a likely most significant contr ibuting factor to an underlying predisposition. She did recently have a normal echocardiogram about 1 month ago We will consult cardiology. Present on Admission?: Yes (2) Elevated troponin: Elevated troponin/hypertension- The patient will be admitted to telemetry for serial cardiac enzymes, serial EKG's, cardiac rhythm monitoring. Likely type II PR, supply demand mismatch. Continue aspirin 81 mg daily, bisoprolol/HCTZ daily, clopidogrel 75 mg daily, lisinopril 5 mg daily. Present on Admission?: Yes (3) Hypomagnesemia: Magnesium level 1.3 upon admission. She will receive a total of 4 g IV in the ED. Repeat laboratories in the a.m. Present on Admission?: Yes (4) H/O recurrent transient ischemic attacks: No new symptoms this admission. Present on Admission?: Yes (5) Acid reflux: Change ranitidine to famotidine. Present on Admission?: Yes (6) Depression: Continue venlafaxine ER Present on Admission?: Yes (7) COPD (chronic obstructive pulmonary disease): Continue usual inhalers Present on Admission?: Yes (8) Type 2 diabetes mellitus without complications: Continue Levemir 9 units subcu at bedtime. Hold metformin and pioglitazone. Placed on Accu-Cheks before meals and at bedtime with NovoLog coverage per scale Present on Admission?: Yes (9) Anxiety disorder: Continue venlafaxine and clonazepam Present on Admission?: Yes (10) Essential (primary) hypertension: As above Present on Admission?: Yes History of Present Illness Chief Complaint: Patient presents to the emergency department with an episode of tachycardia, began about 2 hours prior to arrival when going from sitting to standing. Primary Care Provider: Kael Guzman, The patient is a 73-year-old female with a past medical history of SVT in her 20s, recurrent TIAs, carotid artery stenosis, COPD, depression and ongoing tobacco use disorder. She reports that when going from sitting to standing by 2 hours prior to arrival, she felt lightheaded and her heart was beating fast. She did have an episode about 2 months ago which was short-lived and resolved s pontaneously. Her first episodes took place when she was in her 20s. She reports that this episode lasted about 90 minutes before it was stopped by medication given to her in the field. EMS reports that her heart rate was 216. The patient was given adenosine 6 mg IV along with a normal saline bolus, and her rhythm converted to normal sinus rhythm. Allergies Allergy/AdvReac Type Severity Reaction Status Date / Time amoxicillin [From Augmentin] Allergy Severe Anaphylaxis Verified 12/17/18 22:00 cephalexin Allergy Severe Hives Verified 12/17/18 22:00 clavulanic acid Allergy Severe Anaphylaxis Verified 12/17/18 22:00 [From Augmentin] Home Medications Home Medications Medication Instructions Recorded Confirmed Type albuterol sulfate HFA 90 1 - 2 puff INHALATION QID PRN #3 gm 09/30/18 12/17/18 History mcg/actuation aerosol inhaler bisoprolol 5 1 tab PO DAILY #30 tab 11/08/18 12/17/18 History mg-hydrochlorothiazide 6.25 mg tablet cholecalciferol (vitamin D3) 1,000 1,000 units PO DAILY cap 11/08/18 12/17/18 History unit capsule fluticasone propionate 50 1 sprays INTRANASAL DAILY PRN #1 gm 11/08/18 12/17/18 History mcg/actuation nasal spray,suspension ipratropium-albuterol 0.5 mg-3 3 ml INHALATION Q4H PRN #1 ml 11/08/18 12/17/18 History mg(2.5 mg base)/3 mL nebulization soln lisinopril 5 mg tablet 5 mg PO PM #1 tab 11/08/18 12/17/18 History metformin 1,000 mg tablet 1,000 mg PO BID #60 tab 11/08/18 12/17/18 History pioglitazone 15 mg tablet 15 mg PO DAILY #30 tab 11/08/18 12/17/18 History atorvastatin 40 mg tablet 40 mg PO HS #30 tab 11/11/18 12/17/18 Rx clopidogrel 75 mg tablet 75 mg PO DAILY #90 tab 11/11/18 12/17/18 Rx ranitidine 150 mg tablet 150 mg PO BID #60 tab 11/11/18 12/17/18 Rx semaglutide 0.25 mg or 0.5 mg (2 0.25 mg SQ .once per week #1.5 ml 11/11/1811/28 Rx mg/1.5 mL) subcutaneous pen injector insulin detemir (U-100) 100 9 units SUBCUT HS #15 ml 11/21/18 12/17/18 Rx unit/mL (3 mL) subcutaneous pen clonazepam 0.5 mg tablet 0.5 mg PO HS #30 tab 12/05/18 12/17/18 Rx venlafaxine ER 150 mg 150 mg PO DAILY #90 cap 12/16/18 12/17/18 Rx capsule,extended release 24 hr acetaminophen [Tylenol Extra 1,000 mg PO Q6H PRN 12/17/18 12/17/18 History Strength] aspirin 81 mg PO DAILY 12/17/18 12/17/18 History biotin 10,000 mcg PO DAILY 12/17/18 12/17/18 History Past Med/Surg History Medical History Hypertension Type 2 diabetes mellitus Surgical History History of colonoscopy History of dilation and curettage History of tonsillectomy History of tooth extraction Family History Mother Myocardial infarction Grandmother Breast cancer Kidney disease Hypertension Aunt Alzheimer disease Social History Preferred Language: [place] Communication Ability: Effective 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 Beliefs That Will Affect Care: None Current Living Situation: Alone current occupational status: retired Feels Safe at Home: Yes Safety Concerns: Feels Safe At This Time Smoking Status: Current every day smoker Tobacco Type: cigarettes ; Cigarettes Per Day: 15 ; Do You Dip or Chew Tobacco: No ; Second Hand Exposure: Yes ; Tobacco Cessation Education Requested by Patient: No Hx Alcohol Use: No Hx Substance Use: No Dental Care, Regularly: No Review of Systems Review of Systems: The patient denies cough, lower extremity swelling, sore throat, fevers, chills, sweats, nausea, vomiting, diarrhea , constipation, abdominal pain, pelvic pain, blood in urine or stool, dysuria, urinary frequency or urgency, memory loss, loss of consciousness, rash, abnormal bruising or bleeding, imbalance, focal weakness, generalized arthralgias or myalgias, back or neck pain, or night sweats. The review of systems is otherwise negative other than for that already noted above, and at least 10 systems have been reviewed. Physical Exam Physical Exam: The patient is awake, alert and oriented 3, well developed and well nourished, normocephalic and atraumatic, lying in bed and in no acute distress. HEENT--PERRL, EOMI, mucous membranes and oropharynx dry. Neck--supple. No JVD. No bruits. Thyroid normal, trachea midline, no adenopathy. Heart--normal S1 and S2. No murmurs, rubs or gallops. Lungs--clear bilaterally, no respiratory distress, no accessory muscle use. Abdomen--normal bowel sounds and soft. Nontender. Nondistended. Obese Extremities--no cyanosis or clubbing. No edema. There are good distal pulses b/l. Dermatologic--normal skin turgor, normal color, no abnormal lymph nodes, no rash. Neurologic--cranial nerves II through XII grossly intact. Rheumatologic--normal range of motion. Psychiatric--normal affect. Results & Data Vital Signs (Past 12 Hours) Vital Signs Temp Pulse Pulse Resp BP BP Pulse Ox 12/18/18 01:53 97.5 F L 82 104/70 93 12/18/18 01:32 85 18 120/61 94 12/18/18 00:36 86 20 129/71 94 12/17/18 23:51 82 18 121/73 98 12/17/18 22:36 87 18 103/61 98 12/17/18 22:34 91 H 18 103/61 96 12/17/18 21:38 95 H 18 107/73 99 12/17/18 21:05 100 12/17/18 20:58 97.9 F 99 H 20 122/66 100 Laboratory Results Laboratory Results WBC 10.68 K/uL (4.8-10.8) 12/17/18 21:32 RBC 4.90 M/uL (4.2-5.4) 12/17/18 21:32 Hgb 14.4 g/dL (12.0-16.0) 12/17/18 21:32 Hct 43.5 % (37-47) 12/17/18 21:32 MCV 88.8 fL (80-100) 12/17/18 21:32 MCH 29.4 pg (25-34) 12/17/18 21: MCHC 33.1 g/dL (32-36) 12/17/18 21:32 RDW Std Deviation 45.9 fL (36.4-46.3) 12/17/18 21: RDW Coeff of Kofi 14.2 % (11.5-14.5) 12/17/18: Plt Count 171 K/uL (130-400) 12/17/18 21:32 MPV 11.6 fL (7.4-10.4) H 12/17/18 21:32 Immature Gran % (Auto) 0.6 % 12/17/18 21: Neut % (Auto) 71.5 % 12/17/18 21:32 Lymph % (Auto) 20.6 % 12/17/18 21:32 [place] % (Auto) 5.6 % 12/17/18 21:32 Eos % (Auto) 1.0 % 12/17/18:32 Baso % (Auto) 0.7 % 12/17/18:32 Immature Gran # (Auto) 0.06 K/uL (0.00-0.02) H 12/17/18 21:32 Neut # (Auto) 7.64 K/uL (1.4-6.5) H 12/17/18 21:32 Lymph # (Auto) 2.20 K/uL (1.2-3.4) 12/17/18 21:32 [place] # (Auto) 0.60 K/uL (0.11-0.59) H 12/17/18 21:32 Eos # (Auto) 0.11 K/uL (0-0.5) 12/17/18: Baso # (Auto) 0.07 K/uL (0-0.2) 12/17/18 21:32 Sodium 142 mmol/L (136-145) 12/17/18 21:32 Potassium 4.0 mmol/L (3.5-5.1) 12/17/18 21:32 Chloride 108 mmol/L (98-107) H 12/17/18 21:32 Carbon Dioxide 24 mmol/L (21-32) 12/17/18 21:32 Anion Gap 10.0 (3-11) 12/17/18 21:32 BUN 18 mg/dl (7-18) 12/17/18 21:32 Creatinine 1.09 mg/dl (0.6-1.2) 12/17/18 21:32 Est Cr Clr Drug Dosing 55.9 ml/min 12/17/18 21:32 Est GFR ( Amer) 58.7 12/17/18 21:32 Est GFR (Non-Af Amer) 50.7 12/17/18 21:32 BUN/Creatinine Ratio 16.4 (10-20) 12/17/18 21:32 Glucose 154 mg/dl (70-99) H 12/17/18 21:32 POC Glucose 208 (70-99) H 12/18/18 02:48 Calcium 9.1 mg/dl (8.5-10.1) 12/17/18 21:32 Magnesium 1.3 mg/dl (1.8-2.4) L 12/17/18 21:32 Total Bilirubin 0.4 mg/dl (0.2-1) 12/17/18 21:32 AST 13 U/L (15-37) L 12/17/18 21:32 ALT 15 U/L (12-78) 12/17/18 21:32 Alkaline Phosphatase 67 U/L (45-117) 12/17/18 21:32 Troponin I 0.106 ng/ml (0-0.045) H* 12/17/18 23:30 Total Protein 6.2 gm/dl (6.4-8.2) L 12/17/18 21:32 Albumin 3.2 gm/dl (3.4-5.0) L 12/17/18 21:32 Globulin 3.0 gm/dl (2.5-4.0) 12/17/18 21:32 Albumin/Globulin Ratio 1.1 (0.9-2) 12/17/18 21:32 Diagnostic Findings [facility], [place] [phone] XRay Report Patient: VIOLETTE MERINO Date: 12/17/18 MR#: [id number]: [address] Acct ID:[id number]: Date: [address] Zip: [place] [address] Age: 73Location: ED Sex: F Room/Bed: Att Phy:Diagnosis: TACHYCARDIA Clarissa Phy: Kael Guzman, DOService Date: 12/17/18 Fam Phy: Kael Guzman, DOInterpreting Phy: Adelfo Sanchez MD Admit Phy: Ordering Phy: Chapin Raza M.D. cc: ~ XR chest 1V portable HISTORY: Atypical Chest Pain COMPARISON: Chest 11/08/2018. FINDINGS: Chronic elevation of the right hemidiaphragm. No pneumothorax. No pleural effusions. The heart is normal in size. The lungs are clear. Calcified subcarinal lymph nodes are again noted. IMPRESSION: No significant change compared to the prior study. No acute process. Electronically signed by: Adelfo Sanchez M.D. 12/17/2018 10:15 PM Dictated: 12/17/18 2213 Transcribed: 12/17/182212 Code Status & VTE Plan Code Status Full code VTE Prophylaxis Plan VTE Prophylaxis will be ordered: Yes PG Care Time/CCT Total # of Minutes Spent Total Time Spent with Patient: Total time spent is greater than 50% in coordination of care (as documented) at patient's floor/unit and/or counseling patient:
[2018-12-18 03:04] LABS: BUN Creatinine Ratio 19.1 (10-20); Calcium 8.3 mg/dl (8.5-10.1); Creatinine Clr Calc Pharmacy 63.1 ml/min; Est GFR (African American) 67.6; Est GFR (Non-African American) 58.3; Magnesium 1.6 mg/dl (1.8-2.4); Potassium 3.6 mmol/L (3.5-5.1)
[2018-12-18 03:16] LABS: Troponin I 0.168 ng/ml (0-0.045)
[2018-12-18] MEDS: INSULIN ASPART 100 UNITS/ML 3 ML PEN SC SCH ×2 (08:13→12:35)
[2018-12-18] MEDS ORDERED: INFLUENZA ADMINISTRATION CHARGE ONE (08:30)
[2018-12-18] MEDS ORDERED: INFLUENZA VIRUS QUAD VACCINE 0.5 ML SYR IM ONE (08:30)
--- NOTE | 2018-12-18 08:53 | Family Medicine Progress Note ---
Date of Service December 18, 2018 Results & Data Vital Signs (Past 12 Hours) Vital Signs Temp Pulse Pulse Pulse Resp BP BP 12/18/18 07:39 36.7 C 77 20 128/77 12/18/18 03:03 85 12/18/18 01:53 36.4 C L 82 104/70 12/18/18 01:32 85 18 120/61 12/18/18 00:36 86 20 129/71 12/17/18 23:51 82 18 121/73 12/17/18 22:36 87 18 103/61 12/17/18 22:34 91 H 18 103/61 12/17/18 21:38 95 H 18 107/73 12/17/18 21:05 12/17/18 20:58 36.6 C 99 H 20 122/66 Pulse Ox 12/18/18 07:39 96 12/18/18 03:03 12/18/18 01:53 93 12/18/18 01:32 94 12/18/18 00:36 94 12/17/18 23:51 98 12/17/18 22:36 98 12/17/18 22:34 96 12/17/18 21:38 99 12/17/18 21:05 100 12/17/18 20:58 100 PG Care Time/CCT Total # of Minutes Spent Total Time Spent with Patient: Total time spent is greater than 50% in coordination of care (as documented) at patient's floor/unit and/or counseling patient:
[2018-12-18] MEDS ORDERED: CHOLECALCIFEROL 1,000 UNITS TAB PO SCH (09:00)
[2018-12-18] MEDS ORDERED: VENLAFAXINE HCL XR 150 MG CAPXR PO SCH (09:00)
[2018-12-18] MEDS ORDERED: ASPIRIN 81 MG ECTAB PO SCH (09:00)
[2018-12-18] MEDS ORDERED: NON-FORMULARY MEDICATION (Biotin 10,000 MCG) PO SCH (09:00)
[2018-12-18] MEDS ORDERED: CLOPIDOGREL BISULFATE 75 MG TAB PO SCH (09:00)
[2018-12-18] MEDS ORDERED: MAGNESIUM OXIDE 400 MG TAB PO SCH (11:00)
[2018-12-18] MEDS ORDERED: METOPROLOL SUCC 50MG EXT REL TAB PO SCH (11:00)
--- NOTE | 2018-12-18 11:11 | Cardiology Consultation ---
Date of Consultation December 18, 2018 Assessment & Plan (1) SVT (supraventricular tachycardia): She had sustained SVT and has had a history of this. This is her second episode in the past 2 months. She is quite symptomatic while standing. We discussed potential treatment options. SVT ablation was considered and discussed with her and her son. We also discussed other possibilities such as anti rhythmic therapy verses close monitoring for recurrence. She is interested in considering further treatment. Recommend electrophysiology consultation to consider ablation. It is possible that her low magnesium level contributed to her SVT. Recommend supplementation and correction of her electrolyte imbalance. Continue beta-ana as noted below. If it is felt that hypomagnesemia played a role, could potentially monitor over time for recurrence. (2) Elevated troponin: No angina. Likely secondary to prolonged elevated heart rate with heart rate greater than 200 bpm. Had echo 1 month ago. Further ischemic evaluation not necessary at this time. She did not rule in for myocardial infarction. (3) Hypomagnesemia: Replete as per primary service. (4) Tobacco abuse: Smoking cessation recommended. (5) Essential (primary) hypertension: She states that her blood pressure at home is low occasionally. Will decrease her combination bisoprolol/HCTZ and replace simply with beta-ana. This also may help maintain a higher magnesium level. Metoprolol succinate 50 mg once daily initiated. Disposition: Plan of care discussed with Dr. Feldman of the primary hospitalist service. If no further episodes, can be discharged from a cardiac perspective today with follow-up in the cardiology office with electrophysiology. This will be arranged by Cardiology staff. Thank you for allowing me to participate in the care of your patient. Please call for any other questions or concerns. Sincerely, Gregorio Lombardo M.D. History of Present Illness Attending Physician: Raji Feldman, History of Present Illness Mrs. Almeida is a very pleasant 73-year-old female with a history significant for SVT, TIA versus migraine, COPD, type 2 diabetes, and hypertension. When she was in her 20s, she had frequent palpitations. On 1 particular night she had a prolonged episode and went to the local emergency department where she was found have a heart rate of 208 bpm. She was told that she had SVT. She was given several intravenous medications and eventually SVT was terminated. she does not recall any specific therapy recommended at that time. Then in her 40s, she had difficulty swallowing and catching her breath and was diagnosed with panic attacks. She was started on Ativan and antidepressant therapy and this eventually resolved her palpitations for the most part. She did continue to have occasional palpitations described as flip and no big deal. These would persist for only 1 or 2 beats, different than her SVT. She would experience palpitations only every few months. Two months ago however she had an episode of palpitations and dizziness when she stood up. Her heart rate was elevated but shedoes not know how high. Symptoms persisted for approximately 45 minutes before spontaneously resolving. She did not seek medical attention. Yesterday at approximately 5:30 p.m. or 6:00 p.m. she was sitting on the couch and when she stood up she felt dizzy/lightheaded with palpitations. Each time she would stand up after this, she continued to have dizziness or lightheadedness but denies syncope. Palpitations persisted even while sitting and lasted for 1.5 hours. She called for an ambulance and EMS performed an ECG which demonstrated a heart rate of 216 bpm with narrow complex tachycardia, consistent with SVT. Diffuse ST depression was also present. She was given adenosine 6 mg IV x1 and converted to sinus rhythm. While here, she has not had any further palpitations. She denies syncope, near- syncope, chest pain, shortness of breath, edema, or bleeding such as melena, hematochezia, or hematuria. She was found to be hypomagnesemic and has received supplementation as per primary service. She was alone in her hospital room but she did call her son who was on speaker phone for are our discussion. Review of systems: As above. Review of systems otherwise negative/unremarkable. Social history: She smokes 15 cigarettes per day and has smoked for 50 years, up to 2 packs per day briefly. No alcohol or drugs. She is from [place] and moved to [place] in March. She lives with her . They have 1 child. They moved to [place] to be closer to their son, Raji, and a grandson. 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 Family history: Mother at the age of 34 but no autopsy was done. Father at the age of 34 with cerebral hemorrhage. Maternal grandmother had some form of heart disorder. Allergies Allergy/AdvReac Type Severity Reaction Status Date / Time amoxicillin [From Augmentin] Allergy Severe Anaphylaxis Verified 12/17/18 22:00 cephalexin Allergy Severe Hives Verified 12/17/18 22:00 clavulanic acid Allergy Severe Anaphylaxis Verified 12/17/18 22:00 [From Augmentin] Home Medications Home Medications Medication Instructions Recorded Confirmed Type albuterol sulfate HFA 90 1 - 2 puff INHALATION QID PRN #3 gm 09/30/18 12/17/18 History mcg/actuation aerosol inhaler bisoprolol 5 1 tab PO DAILY #30 tab 11/08/18 12/17/18 History mg-hydrochlorothiazide 6.25 mg tablet cholecalciferol (vitamin D3) 1,000 1,000 units PO DAILY cap 11/08/18 12/17/18 History unit capsule fluticasone propionate 50 1 sprays INTRANASAL DAILY PRN #1 gm 11/08/18 12/17/18 History mcg/actuation nasal spray,suspension ipratropium-albuterol 0.5 mg-3 3 ml INHALATION Q4H PRN #1 ml 11/08/18 12/17/18 History mg(2.5 mg base)/3 mL nebulization soln lisinopril 5 mg tablet 5 mg PO PM #1 tab 11/08/18 12/17/18 History metformin 1,000 mg tablet 1,000 mg PO BID #60 tab 11/08/18 12/17/18 History pioglitazone 15 mg tablet 15 mg PO DAILY #30 tab 11/08/18 12/17/18 History atorvastatin 40 mg tablet 40 mg PO HS #30 tab 11/11/18 12/17/18 Rx clopidogrel 75 mg tablet 75 mg PO DAILY #90 tab 11/11/18 12/17/18 Rx ranitidine 150 mg tablet 150 mg PO BID #60 tab 11/11/18 12/17/18 Rx semaglutide 0.25 mg or 0.5 mg (2 0.25 mg SQ .once per week #1.5 ml 11/11/18 12/17/18 Rx mg/1.5 mL) subcutaneous pen injector insulin detemir (U-100) 100 9 units SUBCUT HS #15 ml 11/21/18 12/17/18 Rx unit/mL (3 mL) subcutaneous pen clonazepam 0.5 mg tablet 0.5 mg PO HS #30 tab 12/05/18 12/17/18 Rx venlafaxine ER 150 mg 150 mg PO DAILY #90 cap 12/16/18 12/17/18 Rx capsule,extended release 24 hr acetaminophen [Tylenol Extra 1,000 mg PO Q6H PRN 12/17/18 12/17/18 History Strength] aspirin 81 mg PO DAILY 12/17/18 12/17/18 History biotin 10,000 mcg PO DAILY 12/17/18 12/17/18 History Patient History Medical History Hypertension Type 2 diabetes mellitus Surgical History History of colonoscopy History of dilation and curettage History of tonsillectomy History of tooth extraction Family History Mother Myocardial infarction Grandmother Breast cancer Kidney disease Hypertension Aunt Alzheimer disease Social History Preferred Language: [place] Communication Ability: Effective Case Picker Required: No Beliefs That Will Affect Care: None marital status: Current Living Situation: Alone current occupational status: retired Feels Safe at Home: Yes Safety Concerns: Feels Safe At This Time Smoking Status: Current every day smoker Tobacco Type: cigarettes ; Cigarettes Per Day: 15 ; Do You Dip or Chew Tobacco: No ; Second Hand Exposure: Yes ; Tobacco Cessation Education Requested by Patient: No Hx Alcohol Use: No Hx Substance Use: No Dental Care, Regularly: No Physical Exam Physical Exam: Gen.: No acute distress. Alert and oriented. HEENT: Anicteric sclera. Neck: No JVD. No bruits. Normal carotid upstrokes bilaterally. Cardiac: PMI was nondisplaced. No ventricular heave. Regular. Normal S1-S2. No murmurs, rubs, or gallops. Pulmonary: Clear to auscultation bilaterally without wheezes, rales, or rhonchi. Abdomen: Soft, nontender, nondistended, with normoactive bowel sounds. No bruits noted. Extremities: 2+ radial pulses bilaterally. 2+ posterior tibialis pulses bilaterally. No edema or cyanosis. Psychiatric: Affect appears appropriate. Results & Data Vital Signs (Past 12 Hours) Vital Signs Temp Pulse Pulse Pulse Resp BP Pulse Ox 12/18/18 07:39 36.7 C 77 20 128/77 96 12/18/18 03:03 85 12/18/18 01:53 36.4 C L 82 104/70 93 12/18/18 01:32 85 18 120/61 94 12/18/18 00:36 86 20 129/71 94 12/17/18 23:51 82 18 121/73 98 Laboratory Results Laboratory Results - last 24 hr 12/17/18 12/17/18 12/17/18 21:32 21:32 23:30 WBC 10.68 RBC 4.90 Hgb 14.4 Hct 43.5 MCV 88.8 MCH 29.4 MCHC 33.1 RDW Std Deviation 45.9 RDW Coeff of Kofi 14.2 Plt Count 171 MPV 11.6 H Immature Gran % (Auto) 0.6 Neut % (Auto) 71.5 Lymph % (Auto) 20.6 [place] % (Auto) 5.6 Eos % (Auto) 1.0 Baso % (Auto) 0.7 Immature Gran # (Auto) 0.06 H Neut # (Auto) 7.64 H Lymph # (Auto) 2.20 [place] # (Auto) 0.60 H Eos # (Auto) 0.11 Baso # (Auto) 0.07 Sodium 142 Potassium 4.0 Chloride 108 H Carbon Dioxide 24 Anion Gap 10.0 BUN 18 Creatinine 1.09 Est Cr Clr Drug Dosing 55.9 Est GFR ( Amer) 58.7 Est GFR (Non-Af Amer) 50.7 BUN/Creatinine Ratio 16.4 Glucose 154 H POC Glucose Calcium 9.1 Magnesium 1.3 L Total Bilirubin 0.4 AST 13 L ALT 15 Alkaline Phosphatase 67 Troponin I 0.021 0.106 H* Total Protein 6.2 L Albumin 3.2 L Globulin 3.0 Albumin/Globulin Ratio 1.1 12/18/18 12/18/18 12/18/18 02:21 02:48 06:55 WBC RBC Hgb Hct MCV MCH MCHC RDW Std Deviation RDW Coeff of Kofi Plt Count MPV Immature Gran % (Auto) Neut % (Auto) Lymph % (Auto) [place] % (Auto) Eos % (Auto) Baso % (Auto) Immature Gran # (Auto) Neut # (Auto) Lymph # (Auto) [place] # (Auto) Eos # (Auto) Baso # (Auto) Sodium 142 Potassium 3.6 Chloride 108 H Carbon Dioxide 28 Anion Gap 6.0 BUN 19 H Creatinine 0.97 Est Cr Clr Drug Dosing 63.1 Est GFR ( Amer) 67.6 Est GFR (Non-Af Amer) 58.3 BUN/Creatinine Ratio 19.1 Glucose 199 H POC Glucose 208 H 117 H Calcium 8.3 L Magnesium 1.6 L Total Bilirubin AST ALT Alkaline Phosphatase Troponin I 0.168 H* Total Protein Albumin Globulin Albumin/Globulin Ratio 12/18/18 09:45 WBC RBC Hgb Hct MCV MCH MCHC RDW Std Deviation RDW Coeff of Kofi Plt Count MPV Immature Gran % (Auto) Neut % (Auto) Lymph % (Auto) [place] % (Auto) Eos % (Auto) Baso % (Auto) Immature Gran # (Auto) Neut # (Auto) Lymph # (Auto) [place] # (Auto) Eos # (Auto) Baso # (Auto) Sodium Potassium Chloride Carbon Dioxide Anion Gap BUN Creatinine Est Cr Clr Drug Dosing Est GFR ( Amer) Est GFR (Non-Af Amer) BUN/Creatinine Ratio Glucose POC Glucose Calcium Magnesium Total Bilirubin AST ALT Alkaline Phosphatase Troponin I 0.129 H* Total Protein Albumin Globulin Albumin/Globulin Ratio Diagnostic Findings ECGs personally reviewed: ECG 12/17/2018 done by EMS demonstrating SVT was personally reviewed. ECG 12/17/2018 at 2056: NSR 97 bpm. Telemetry personally reviewed: Sinus rhythm with a 6 beat run of paroxysmal atrial tachycardia at 5:03 a.m.. Echo 11/09/2018: Normal LV size, wall motion, systolic function. EF 65-70%. Mild to moderate LVH. No significant valvular abnormalities. Chest x-ray 12/17/2018: No acute process per Radiology. TSH on 11/08/2018 was 1.5. Medications Administered Current Inpatient Medications Acetaminophen (Tylenol) 650 mg PO Q4H PRN PRN Reason: Pain or Fever Stop: 01/17/19 01:52 Al Hydrox/Mg Hydrox/Simethicone (Maalox) 15 ml PO Q4H PRN PRN Reason: Dyspepsia Stop: 01/17/19 01:52 Albuterol (Duoneb) 3 ml INH Q4H PRN PRN Reason: Shortness Of Breath Or Wheezing Stop: 01/17/19 01:52 Albuterol (Ventolin Hfa) 2 puffs INH QID PRN PRN Reason: Shortness Of Breath Or Wheezing Stop: 01/17/19 01:52 Aspirin (Ecotrin Ectab) 81 mg PO DAILY [facility] Stop: 01/17/19 08:59 Last Admin: 12/18/18 08:08 Dose: Not Given Documented by: Atorvastatin Calcium (Lipitor) 40 mg PO HS [facility] Stop: 01/17/19 20:59 Clonazepam (Klonopin) 0.5 mg PO HS [facility] Stop: 01/17/19 20:59 Clopidogrel Bisulfate (Plavix) 75 mg PO DAILY P[facility] Stop: 01/17/19 08:59 Last Admin: 12/18/18 08:10 Dose: 75 mg Documented by: Dextrose (Dextrose 50%) 25 - 50 ml IV UD PRN; Protocol PRN Reason: Hypoglycemia Protocol Stop: 01/17/19 01:52 Fluticasone Propionate (Flonase) 1 sprays [place] DAILY PRN PRN Reason: congested Stop: 01/17/19 01:52 Glucagon (Glucagen) 1 mg SQ UD PRN; Protocol PRN Reason: Hypoglycemia Protocol Stop: 01/17/19 01:52 Glucose (Glucose 40%) 15 - 30 gm PO UD PRN; Protocol PRN Reason: Hypoglycemia Protocol Stop: 01/17/19 01:52 Glucose (Dex4 Glucose) 4 - 8 tabs PO UD PRN; Protocol PRN Reason: Hypoglycemia Protocol Stop: 01/17/19 01:52 Insulin Aspart (Novolog Flexpen) 0 units SC ACHS [facility] Stop: 01/17/19 07:29 Last Admin: 12/18/18 08:13 Dose: 4 units Documented by: Insulin Detemir (Levemir Flextouch) 9 units SQ HS [facility] Stop: 01/17/19 20:59 Lisinopril (Zestril) 5 mg PO PM P[facility]ITH[facility] Stop: 01/17/19 20:59 Magnesium Hydroxide (Milk Of Magnesia) 30 ml PO Q12H PRN PRN Reason: Constipation Stop: 01/17/19 01:52 Magnesium Oxide (Mag-Ox) 400 mg PO BID PAVITH[facility] Stop: 01/17/19 10:59 Metoprolol Succinate (Toprol Xl) 50 mg PO QAM [facility] Stop: 01/17/19 10:59 Miscellaneous (Carbohydrates For Hypoglycemia) 15 - 30 gm PO UD PRN PRN Reason: Hypoglycemia Treatment Stop: 01/17/19 01:52 Ondansetron HCl (Zofran) 4 mg IV Q6H PRN PRN Reason: Nausea Stop: 01/17/19 01:52 Ranitidine HCl (Zantac) 150 mg PO BID [facility] Stop: 01/17/19 08:59 Last Admin: 12/18/18 08:09 Dose: 150 mg Documented by: Venlafaxine HCl (Effexor Extended Release) 150 mg PO DAILY [facility] Stop: 01/17/19 08:59 Last Admin: 12/18/18 08:09 Dose: 150 mg Documented by: Vitamin D (Vitamin D3) 1,000 units PO DAILY [facility] Stop: 01/17/19 08:59 Last Admin: 12/18/18 08:09 Dose: 1,000 units Documented by: PG Care Time/CCT Total # of Minutes Spent Total Time Spent with Patient: Total time spent is greater than 50% in coordination of care (as documented) at patient's floor/unit and/or counseling patient:
--- NOTE | 2018-12-18 14:48 | Discharge Summary ---
Date of Service December 18, 2018 Admission HPI Per Admitting Provider The patient is a 73-year-old female with a past medical history of SVT in her 20s, recurrent TIAs, carotid artery stenosis, COPD, depression and ongoing tobacco use disorder. She reports that when going from sitting to standing by 2 hours prior to arrival, she felt lightheaded and her heart was beating fast. She did have an episode about 2 months ago which was short-lived and resolved spontaneously. Her first episodes took place when she was in her 20s. She reports that this episode lasted about 90 minutes before it was stopped by medication given to her in the field. EMS reports that her heart rate was 216. The patient was given adenosine 6 mg IV along with a normal saline bolus, and her rhythm converted to normal sinus rhythm. Principal Diagnosis Supraventricular tachycardia Discharge Data Allergies Allergy/AdvReac Type Severity Reaction Status Date / Time amoxicillin [From Augmentin] Allergy Severe Anaphylaxis Verified 12/17/18 22:00 cephalexin Allergy Severe Hives Verified 12/17/18 22:00 clavulanic acid Allergy Severe Anaphylaxis Verified 12/17/18 22:00 [From Augmentin] Consultations 12/18/18 00:20 ED Decision to Admit Stat 12/18/18 01:53 Consult Cardiology Routine Consult Case Management - Discharge Planning Routine Hospital Course (1) SVT (supraventricular tachycardia): Patient was admitted to the hospital after having heart palpitations and a racing heart rate which was causing her to feel dizzy and lightheaded. EMS found her to have a heart rate in the 200s and was in SVT; rate was broken with 6 mg of adenosine given in route to the hospital. After arriving at the hospital serial troponins were completed in addition to EKGs and a cardiology consult. Troponins peaked at 0.168 and eventually downgraded to 0.129 with a third troponin. Patient's magnesium was found to be low at 1.3 she was given oral mag to supplement in case it was related to the etiology of her SVT. Given her lack of continued symptoms after the adenosine and improve clinical function and downtrending troponins patient was cleared for discharge. She will follow- up with either Dr. Mon or Dr. Recio in the cardiology office for an electro physiologic work-up and assessment for ablation. Her previous blood pressure medication was changed to metoprolol succinate 50 once a day as per cardiology recommendations. Other chronic medical conditions were controlled as per home medication regimens. When discussing discharge patient also brought up chronic tension headaches that she experiences. Brief OMT intervention by Dr. Feldman on her suboccipital muscles proved very beneficial and we had an extensive discussion about the potential help of OMT for her headaches and management in the future and to follow-up with her PCP regarding these. (2) Elevated troponin: (3) Hypomagnesemia: Total Time Total Time Spent Total Time Spent (In Minutes): <30 Discharge Plan Discharge Items Patient Disposition: Home - Self-Care Reason For Visit: SVT,HYPOMAGNESEMIA,NON-STEMI Discharge Diagnosis: SVT (Supraventricular Tachycardia) Activity: Resume your previous activity Non-emergency contact: Primary Care Provider and Lottery Clerk Call non-emergency contact if: you have any medication questions and your symptoms worsen Follow-up/Referrals: Kael Guzman DO [Primary Care Provider] - Diet: Regular Addtl Attending Provider Instructions: You were admitted to the hospital for an elevated heart rate and palpitations that were found to be a rhythm called "SVT" or "SupraVentricular Tachycardia". This rhythm was stopped with medication given by EMS and you have stayed in a normal rhythm since. During your stay your cardiac enzymes (troponins) were initially found to be elevated but they started decreasing and thus are no longer a concern at this time. This abnormal rhythm can stem from an extra electrical pathway in your heart that causes the electricity in the upper portion of your heart to "loop" and get stuck going faster than it should be, hence why your heart rate was so high. Treatment of this frequently requires rate control with medications like the Metoprolol we put you on, and can be permanently controlled with ablation by an live ammunition inspector. Your magnesium level was low upon arrival to the hospital, and it is possible this played a role in your abnormal heart rhythm. You should receive a phone call from Dr. Lombardo's office (Cardiology) to set up an appointment with either Dr. Mon or Dr. Recio, who are both Electrophysiologists (Heart Electricians) and they will be able to assess where the extra electrical path is coming from and set up a time for that procedure to be done with you. You should follow up with your primary care physician in the next two weeks to update them on what happened in the hospital and continue your health management. New medications: Magnesium supplement 400 twice a day, Metoprolol Succinate 50 once a day Be well. Pending Studies at Discharge: No Stand-Alone Forms: [facility] [place] [facility] Medications and DC Order Prescriptions: New metoprolol succinate 50 mg Tablet Extended Release 24 Hr 50 mg PO QAM 30 Days Qty: 30 RF: 0 magnesium 200 mg tablet 400 mg PO BID 7 Days Qty: 28 RF: 0 Continued Levemir FlexTouch U-100 Insuln 100 unit/mL (3 mL) insulin pen 9 units subcut HS Qty: 15 RF: 1 clonazepam 0.5 mg tablet 0.5 mg PO HS Qty: 30 RF: 0 venlafaxine 150 mg capsule,extended release 24hr 150 mg PO DAILY Qty: 90 RF: 3 atorvastatin 40 mg tablet 40 mg PO HS Qty: 30 RF: 0 clopidogrel 75 mg tablet 75 mg PO DAILY Qty: 90 RF: 3 Ozempic 0.25 mg or 0.5 mg(2 mg/1.5 mL) pen injector 0.25 mg SQ .once per week Qty: 1.5 RF: 5 ranitidine HCl 150 mg tablet 150 mg PO BID Qty: 60 RF: 2 albuterol sulfate 90 mcg/actuation HFA aerosol inhaler 1 - 2 puff inhalation QID PRN (Reason: Shortness Of Breath Or Wheezing) Qty: 3 RF: 0 cholecalciferol (vitamin D3) 1,000 unit capsule 1,000 units PO DAILY RF: 0 fluticasone propionate 50 mcg/actuation spray,suspension 1 sprays intranasal DAILY PRN (Reason: congested) Qty: 1 RF: 0 ipratropium-albuterol 0.5 mg-3 mg(2.5 mg base)/3 mL solution for nebulization 3 ml inhalation Q4H PRN (Reason: Shortness Of Breath Or Wheezing) Qty: 1 RF: 0 lisinopril 5 mg tablet 5 mg PO PM Qty: 1 RF: 0 metformin 1,000 mg tablet 1,000 mg PO BID Qty: 60 RF: 0 pioglitazone 15 mg tablet 15 mg PO DAILY Qty: 30 RF: 0 aspirin 81 mg tablet,delayed release (DR/EC) 81 mg PO DAILY RF: 0 acetaminophen [Tylenol Extra Strength] 500 mg Tablet 1,000 mg PO Q6H PRN (Reason: Pain) RF: 0 biotin 10,000 mcg Capsule 10,000 mcg PO DAILY RF: 0 Discontinued bisoprolol-hydrochlorothiazide 5-6.25 mg tablet 1 tab PO DAILY Qty: 30 RF: 0 Discharge Orders: Discharge Order (Routine); Ordered 12/18/18 Ordered By: Swathi Funez Admission Data Admit Date/Time: 12/18/18 01:18 Attending Provider: Raji Feldman Admit Provider: Nehemias Knutson Primary Care Provider: Kael Guzman Other Providers: Nehemias Knutson ; Michele Recio ; Swathi Funez Other Interventions: Discharge Summary Assessment (RN) Last Done: 12/18/18 13:31 DC Date/Time DO NOT enter until pt leaves facility: 12/18/18 15:20 Resident Activity Tracking Resident Involvement: Resident Care Provided Care Provided: Adult Hospital Medicine
--- NOTE | 2018-12-18 19:28 | Discharge Summary ---
Date of Service December 18, 2018 Admission HPI Per Admitting Provider The patient is a 73-year-old female with a past medical history of SVT in her 20s, recurrent TIAs, carotid artery stenosis, COPD, depression and ongoing tobacco use disorder. She reports that when going from sitting to standing by 2 hours prior to arrival, she felt lightheaded and her heart was beating fast. She did have an episode about 2 months ago which was short-lived and resolved spontaneously. Her first episodes took place when she was in her 20s. She reports that this episode lasted about 90 minutes before it was stopped by medication given to her in the field. EMS reports that her heart rate was 216. The patient was given adenosine 6 mg IV along with a normal saline bolus, and her rhythm converted to normal sinus rhythm. Principal Diagnosis SVT Discharge Data Allergies Allergy/AdvReac Type Severity Reaction Status Date / Time amoxicillin [From Augmentin] Allergy Severe Anaphylaxis Verified 12/17/18 22:00 cephalexin Allergy Severe Hives Verified 12/17/18 22:00 clavulanic acid Allergy Severe Anaphylaxis Verified 12/17/18 22:00 [From Augmentin] Consultations 12/18/18 00:20 ED Decision to Admit Stat 12/18/18 01:53 Consult Cardiology Routine Consult Case Management - Discharge Planning Routine Total Time Total Time Spent Total Time Spent (In Minutes): Greater than 30 Discharge Plan Discharge Items Patient Disposition: Home - Self-Care Reason For Visit: SVT,HYPOMAGNESEMIA,NON-STEMI Discharge Diagnosis: SVT (Supraventricular Tachycardia) Activity: Resume your previous activity Non-emergency contact: Primary Care Provider and Stock Associate Call non-emergency contact if: you have any medication questions and your symptoms worsen Follow-up/Referrals: Kael Guzman, [Primary Care Provider] - Diet: Regular Addtl Attending Provider Instructions: You were admitted to the hospital for an elevated heart rate and palpitations that were found to be a rhythm called "SVT" or "SupraVentricular Tachycardia". This rhythm was stopped with medication given by EMS and you have stayed in a normal rhythm since. During your stay your cardiac enzymes (troponins) were initially found to be elevated but they started decreasing and thus are no longer a concern at this time. This abnormal rhythm can stem from an extra electrical pathway in your heart that causes the electricity in the upper portion of your heart to "loop" and get stuck going faster than it should be, hence why your heart rate was so high. Treatment of this frequently requires rate control with medications like the Metoprolol we put you on, and can be permanently controlled with ablation by an pt escort. Your magnesium level was low upon arrival to the hospital, and it is possible this played a role in your abnormal heart rhythm. You should receive a phone call from Dr. Lombardo's office (Cardiology) to set up an appointment with either Dr. Mon or Dr. Recio, who are both Electrophysiologists (Heart Electricians) and they will be able to assess where the extra electrical path is coming from and set up a time for that procedure to be done with you. You should follow up with your primary care physician in the next two weeks to update them on what happened in the hospital and continue your health management. New medications: Magnesium supplement 400 twice a day, Metoprolol Succinate 50 once a day Be well. Pending Studies at Discharge: No Stand-Alone Forms: My [facility] Medications and DC Order Prescriptions: New metoprolol succinate 50 mg Tablet Extended Release 24 Hr 50 mg PO QAM 30 Days Qty: 30 RF: 0 magnesium 200 mg tablet 400 mg PO BID 7 Days Qty: 28 RF: 0 Continued Levemir FlexTouch U-100 Insuln 100 unit/mL (3 mL) insulin pen 9 units subcut HS Qty: 15 RF: 1 clonazepam 0.5 mg tablet 0.5 mg PO HS Qty: 30 RF: 0 venlafaxine 150 mg capsule,extended release 24hr 150 mg PO DAILY Qty: 90 RF: 3 atorvastatin 40 mg tablet 40 mg PO HS Qty: 30 RF: 0 clopidogrel 75 mg tablet 75 mg PO DAILY Qty: 90 RF: 3 Ozempic 0.25 mg or 0.5 mg(2 mg/1.5 mL) pen injector 0.25 mg SQ .once per week Qty: 1.5 RF: 5 ranitidine HCl 150 mg tablet 150 mg PO BID Qty: 60 RF: 2 albuterol sulfate 90 mcg/actuation HFA aerosol inhaler 1 - 2 puff inhalation QID PRN (Reason: Shortness Of Breath Or Wheezing) Qty: 3 RF: 0 cholecalciferol (vitamin D3) 1,000 unit capsule 1,000 units PO DAILY RF: 0 fluticasone propionate 50 mcg/actuation spray,suspension 1 sprays intranasal DAILY PRN (Reason: congested) Qty: 1 RF: 0 ipratropium-albuterol 0.5 mg-3 mg(2.5 mg base)/3 mL solution for nebulization 3 ml inhalation Q4H PRN (Reason: Shortness Of Breath Or Wheezing) Qty: 1 RF: 0 lisinopril 5 mg tablet 5 mg PO PM Qty: 1 RF: 0 metformin 1,000 mg tablet 1,000 mg PO BID Qty: 60 RF: 0 pioglitazone 15 mg tablet 15 mg PO DAILY Qty: 30 RF: 0 aspirin 81 mg tablet,delayed release (DR/EC) 81 mg PO DAILY RF: 0 acetaminophen [Tylenol Extra Strength] 500 mg Tablet 1,000 mg PO Q6H PRN (Reason: Pain) RF: 0 biotin 10,000 mcg Capsule 10,000 mcg PO DAILY RF: 0 Discontinued bisoprolol-hydrochlorothiazide 5-6.25 mg tablet 1 tab PO DAILY Qty: 30 RF: 0 Discharge Orders: Discharge Order (Routine); Ordered 12/18/18 Ordered By: Swathi Funez Admission Data Admit Date/Time: 12/18/18 01:18 Attending Provider: Raji Feldman Admit Provider: Nehemias Knutson Primary Care Provider: Kael Guzman Other Providers: Nehemias Knutson ; Michele Recio ; Swathi Funez Other Interventions: Discharge Summary Assessment (RN) Last Done: 12/18/18 13:31 DC Date/Time DO NOT enter until pt leaves facility: 12/18/18 15:20 Supervising Physician Co-Signing Physician Notes This note is strictly open for bureaucratic (coding) purposes. Please refer to Dr. Funez and my jointly completed note for actual clinical information.
[2018-12-18] MEDS ORDERED: LISINOPRIL 5 MG TAB PO SCH (21:00)
[2018-12-18] MEDS ORDERED: ATORVASTATIN 40 MG TAB PO SCH (21:00)
[2018-12-18] MEDS ORDERED: INSULIN DETEMIR FLEXPEN/FLEX TOUCH 100 UNITS/ML 3ML SQ SCH (21:00)
[2018-12-18] MEDS ORDERED: clonazePAM 0.5 MG TAB PO SCH (21:00)
== END 2018-12-18 15:20 | disposition home or self-care (01) | DRG 310 ==
LOC: ED 20:50 → SUATTDRO 12-18 01:18 → 2S 12-18 01:18
DX: Z79.02 Long term (current) use of antithrombotics/antiplatelets; K21.9 Gastro-esophageal reflux disease without esophagitis; E11.9 Type 2 diabetes mellitus without complications; I47.1 Supraventricular tachycardia; Z79.4 Long term (current) use of insulin; J44.9 Chronic obstructive pulmonary disease, unspecified; F41.9 Anxiety disorder, unspecified; Z79.82 Long term (current) use of aspirin; G47.30 Sleep apnea, unspecified; E83.42 Hypomagnesemia; F17.210 Nicotine dependence, cigarettes, uncomplicated; R42 Dizziness and giddiness; Z79.899 Other long term (current) drug therapy; F32.9 Major depressive disorder, single episode, unspecified; I10 Essential (primary) hypertension

== ENCOUNTER 2019-02-06 19:46 | Inpatient (IN) ==
[2019-02-06 20:20] LABS: Basophils # (auto) 0.08 K/uL (0-0.2); Basophils % (auto) 0.6 %; Eosinophils # (auto) 0.19 K/uL (0-0.5); Eosinophils % (auto) 1.5 %; Hematocrit (blood only) 47.3 % (37-47); Hemoglobin 16.4 g/dL (12.0-16.0); Immature Granulocytes # (auto) 0.08 K/uL (0.00-0.02); Immature Granulocytes % (auto) 0.6 %; Lymphocytes # (auto) 2.81 K/uL (1.2-3.4); Lymphocytes % (auto) 22.6 %; Mean Corpuscular Hemoglobin 30.3 pg (25-34); Mean Corpuscular Hgb Conc 34.7 g/dL (32-36); Mean Corpuscular Volume 87.4 fL (80-100); Mean Platelet Volume 11.5 fL (7.4-10.4); Monocytes # (auto) 0.63 K/uL (0.11-0.59); Monocytes % (auto) 5.1 %; Neutrophils # (auto) 8.64 K/uL (1.4-6.5); Neutrophils % (auto) 69.6 %; Platelet Count 230 K/uL (130-400); RDW Coefficient of Variation 13.9 % (11.5-14.5); RDW Standard Deviation 44.4 fL (36.4-46.3); Red Blood Count 5.41 M/uL (4.2-5.4); White Blood Count 12.43 K/uL (4.8-10.8)
[2019-02-06 20:34] LABS: Alanine Aminotransferase 18 U/L (12-78); Aspartate Aminotransferase 13 U/L (15-37); BUN Creatinine Ratio 18.2 (10-20); Blood Urea Nitrogen 16 mg/dl (7-18); Carbon Dioxide 28 mmol/L (21-32); Chloride 101 mmol/L (98-107); Creatinine Clr Calc Pharmacy 67.2 ml/min; Est GFR (Non-African American) 64.7; Glucose 129 mg/dl (70-99); Magnesium 1.5 mg/dl (1.8-2.4); Potassium 3.9 mmol/L (3.5-5.1); Sodium 137 mmol/L (136-145)
[2019-02-06 20:35] LABS: Partial Thromboplastin Ratio 1.1; Partial Thromboplastin Time 29.3 Seconds (21.0-31.0)
[2019-02-06 20:39] LABS: Albumin Globulin Ratio 1.1 (0.9-2); Alkaline Phosphatase 74 U/L (45-117); Bilirubin,Total 0.7 mg/dl (0.2-1); Globulin 3.8 gm/dl (2.5-4.0); Total Protein 7.8 gm/dl (6.4-8.2); Troponin I < 0.015 ng/ml (0-0.045)
--- NOTE | 2019-02-06 20:42 | CT Scan Report ---
CT OF THE HEAD WITHOUT CONTRAST CLINICAL HISTORY: Stroke evaluation. Headache. COMPARISON STUDY: Head CT November 10, 2018. CT DOSE: 537.48 mGy.cm TECHNIQUE: Helical axial images of the head were obtained without IV contrast. Automated exposure con trol was utilized for the study. A dose lowering technique was utilized adhering to the principles o f ALARA. FINDINGS: No acute intracranial hemorrhage, midline shift or mass effect is present. The ventricular system is unremarkable. The basilar cisterns are patent. No extra-axial collections are present. Ther e are no findings to suggest acute dural sinus thrombosis or acute territorial infarct. No significan t calvarial abnormalities are present. Visualized portions of the sinuses and mastoid air cells are c lear. White matter hypodensities are unchanged and suggest small vessel disease. IMPRESSION: No acute intracranial findings. Electronically signed by: Julian Sparks M.D. 02/06/2019 8:41 PM
[2019-02-06] MEDS: SODIUM CHLORIDE 0.9% 1000ML 1,000 ML IV SCH (20:51)
--- NOTE | 2019-02-06 21:04 | XRay Report ---
XR chest 1V portable CLINICAL HISTORY: stroke COMPARISON STUDY: Chest radiograph December 17, 2018. FINDINGS: There is no pneumothorax or pleural effusion. Elevation of the right hemidiaphragm is uncha nged. Linear right lung opacity favors atelectasis. There is no consolidation to suggest pneumonia an d there is no evidence for pulmonary edema. IMPRESSION: No acute cardiopulmonary findings. No significant change in appearance of the chest. Electronically signed by: Julian Sparks M.D. 02/06/2019 9:03 PM
[2019-02-06] MEDS ORDERED: MoRPHine SULFATE 2 MG/ML CARP IV STA (22:22)
[2019-02-06] MEDS ORDERED: ONDANSETRON INJ 2 MG/ML 2 ML VIAL IV STA (22:22)
[2019-02-06] MEDS ORDERED: ALBUT/IPRATROP 3MG/0.5MG NEB 3 ML VIAL ONE (22:54)
[2019-02-06] MEDS ORDERED: MAGNESIUM SULFATE 1GM / D5W BAG IV ONE (23:11)
[2019-02-06] MEDS: MAGNESIUM SULFATE / D5W 1 GM/100 ML BAG IV SCH ×2 (23:26→23:27)
[2019-02-07 00:02] LABS: Lyme Ab IgG w/WB Rflx Negative (Negative); Lyme Ab IgM w/WB Rflx Negative (Negative)
[2019-02-07] MEDS ORDERED: OPTIRAY 320 125ml IV PRN (00:10)
[2019-02-07] MEDS ORDERED: TPA for Stroke IV STA ×2 (00:25→01:59)
[2019-02-07] MEDS ORDERED: Alteplase Bolus 8.4 MG in SYRINGE 0 ML IV ONE ×2 (00:36→01:59)
[2019-02-07] MEDS ORDERED: PRIMARY PLUMSET, PE LINED TUBING, 113 IN, NON-DEHP (2260-0500) IV ONE ×2 (00:37→01:59)
[2019-02-07] MEDS ORDERED: fentaNYL citrate 100 MCG/2 ML VIAL IV STA ×2 (00:37→01:15)
[2019-02-07] MEDS ORDERED: ALTEPLASE, RECOMBINANT 76 MG in EMPTY BAG 0 ML IV ONE ×2 (00:37→01:59)
[2019-02-07] MEDS ORDERED: LABETALOL HCL IV 5 MG/ML 20ML IV STA ×2 (00:38→05:52)
--- NOTE | 2019-02-07 01:22 | History & Physical Report ---
Date of Service February 07, 2019 Assessment & Plan (1) CVA (cerebral vascular accident): Patient received TPA while in ED. Will be admitted to the ICU for stroke after TPA day 1 protocol Present on Admission?: Yes (2) Tobacco abuse: Cessation counseling once patient is improved. Present on Admission?: Yes (3) Hypomagnesemia: Magnesium is 1.5, given mag sulfate 2 g IV, and will follow-up laboratories. Present on Admission?: Yes (4) COPD (chronic obstructive pulmonary disease): Duonebs every 4 hours while awake and every 2 hours when necessary. Present on Admission?: Yes (5) Type 2 diabetes mellitus without complications: Hold all medications. Placed on Accu-Cheks before meals and at bedtime with NovoLog coverage per scale Present on Admission?: Yes (6) Essential (primary) hypertension: Hold oral medications, permissive hypertension Present on Admission?: Yes (7) Admitted to intensive care unit: Admitted to ICU post TPA.. Present on Admission?: Yes History of Present Illness Chief Complaint: The patient presents to the emergency department with complaint of slurred speech altered vision and expressive aphasia, that resolved by the time of arrival in the ED. Primary Care Provider: Kael Guzman DO The patient is a 73-year-old female with a past medical history including COPD, hypertension, diabetes mellitus, GERD, anxiety and depression, hyperlipidemia and tobacco abuse who presents to the emergency department with the above symptoms. During her stay in the emergency department, her symptoms did return, and a stroke alert was called at that time. She underwent repeat CTA of head / neck and repeat CT of head, and was felt by Dr. Coy from stroke neurology at [facility] to be an appropriate candidate for TPA, and TPA was administered. Patient will now be admitted to the ICU for further follow-up. Allergies Allergy/AdvReac Type Severity Reaction Status Date / Time amoxicillin [From Augmentin] Allergy Severe Anaphylaxis Verified 01/25/19 15:20 cephalexin Allergy Severe Hives Verified 01/25/19 15:20 clavulanic acid Allergy Severe Anaphylaxis Verified 01/25/19 15:20 [From Augmentin] Home Medications Home Medications Medication Instructions Recorded Confirmed Type albuterol sulfate HFA 90 1 - 2 puff INHALATION QID PRN #3 gm 09/30/18 02/06/19 History mcg/actuation aerosol inhaler cholecalciferol (vitamin D3) 1,000 1,000 units PO DAILY cap 11/08/18 02/06/19 History unit capsule ipratropium-albuterol 0.5 mg-3 3 ml INHALATION Q4H PRN #1 ml 11/08/18 02/06/19 History mg(2.5 mg base)/3 mL nebulization soln lisinopril 5 mg tablet 5 mg PO PM #1 tab 11/08/18 02/06/19 History metformin 1,000 mg tablet 1,000 mg PO BID #60 tab 11/08/18 02/06/19 History pioglitazone 15 mg tablet 15 mg PO DAILY #30 tab 11/08/18 02/06/19 History clopidogrel 75 mg tablet 75 mg PO DAILY #90 tab 11/11/18 02/06/19 Rx ranitidine 150 mg tablet 150 mg PO BID #60 tab 11/11/18 02/06/19 Rx insulin detemir (U-100) 100 9 units SUBCUT HS #15 ml 11/21/18 02/06/19 Rx unit/mL (3 mL) subcutaneous pen venlafaxine ER 150 mg 150 mg PO DAILY #90 cap 12/16/18 02/06/19 Rx capsule,extended release 24 hr acetaminophen [Tylenol Extra 1,000 mg PO Q6H PRN 12/17/18 02/06/19 History Strength] semaglutide 0.25 mg or 0.5 mg (2 0.25 mg SQ WEEKLY ml 01/07/19 02/06/19 History mg/1.5 mL) subcutaneous pen injector atorvastatin 40 mg tablet 40 mg PO HS #90 tab 01/16/19 02/06/19 Rx metoprolol succinate ER 50 mg 50 mg PO QAM 90 Days #90 tab 01/17/19 02/06/19 Rx tablet,extended release 24 hr clonazepam 0.5 mg tablet 0.5 mg PO HS #30 tab 02/03/19 02/06/19 Rx biotin 10,000 mcg PO DAILY 02/06/19 02/06/19 History Past Med/Surg History Medical History Hypertension SVT (supraventricular tachycardia) Type 2 diabetes mellitus Surgical History History of colonoscopy History of dilation and curettage History of tonsillectomy History of tooth extraction Family History Mother Myocardial infarction Grandmother Breast cancer Kidney disease Hypertension Aunt Alzheimer disease Social History Preferred Language: Bulgarian Communication Ability: Effective Deputy Jailer Required: No Beliefs That Will Affect Care: None marital status: Current Living Situation: Alone current occupational status: retired Feels Safe at Home: Yes Smoking Status: Current every day smoker Tobacco Type: cigarettes ; Cigarettes Per Day: 15 ; Second Hand Exposure: Yes ; Hx Alcohol Use: No Hx Substance Use: No Dental Care, Regularly: No Review of Systems Review of Systems: Unobtainable due to cognitive status Physical Exam Physical Exam: The patient was briefly alert during my assessment, the rapidly became unable to speak, unable to follow commands such as use of a nebulizer was given to her. At this point, stroke alert was called. HEENT--PERRL, EOMI, mucous membranes and oropharynx dry. Neck--supple. No JVD. No bruits. Thyroid normal, trachea midline, no adenopathy. Heart--normal S1 and S2. No murmurs, rubs or gallops. Lungs--clear bilaterally, no respiratory distress, no accessory muscle use. Abdomen--normal bowel sounds and soft. Nontender. Nondistended, no hernias or masses, no organomegaly. Extremities--no cyanosis or clubbing. No edema. There are good distal pulses b/l. Dermatologic--normal skin turgor, normal color, no abnormal lymph nodes, no rash. Neurologic-- limited exam due to change in function Rheumatologic--normal range of motion. Psychiatric--limited exam due to change in mental status Results & Data Vital Signs (Past 12 Hours) Vital Signs Temp Pulse Pulse Resp BP BP Pulse Ox 02/07/19 01:07 93 H 18 175/101 H 98 02/07/19 01:01 91 H 25 H 175/101 H 97 02/07/19 00:51 94 H 16 142/92 H 97 02/07/19 00:48 94 H 25 H 193/119 H 89 L 02/07/19 00:41 94 H 25 H 189/109 H 95 02/07/19 00:38 96 H 23 176/113 H 95 02/07/19 00:36 98 H 18 149/128 H 97 02/07/19 00:31 96 H 25 H 128/100 02/07/19 00:10 97 H 18 171/96 H 92 02/07/19 00:00 102 H 21 171/96 H 02/06/19 23:58 101 H 21 171/94 H 91 02/06/19 23:31 92 H 21 176/83 H 91 02/06/19 23:24 90 20 143/117 H 92 02/06/19 23:10 94 H 20 194/91 H 96 02/06/19 23:00 98 H 17 100 02/06/19 22:54 86 22 190/105 H 93 02/06/19 22:33 93 H 19 02/06/19 22:32 96 H 22 197/120 H 97 02/06/19 22:30 94 H 20 02/06/19 22:01 87 18 02/06/19 22:00 82 17 144/69 H 02/06/19 21:31 88 19 97 02/06/19 21:30 86 21 150/111 H 95 02/06/19 21:01 87 23 92 02/06/19 21:00 86 24 150/90 H 94 02/06/19 20:46 87 19 94 02/06/19 20:45 80 22 137/83 95 02/06/19 20:44 85 20 02/06/19 20:00 85 19 02/06/19 19:57 98.2 F 90 22 149/108 H 97 02/06/19 19:54 89 19 02/06/19 19:51 90 20 149/108 H Laboratory Results Laboratory Results WBC 12.43 K/uL (4.8-10.8) H 02/06/19 19:52 RBC 5.41 M/uL (4.2-5.4) H 02/06/19 19:52 Hgb 16.4 g/dL (12.0-16.0) H 02/06/19 19:52 Hct 47.3 % (37-47) H 02/06/19 19:52 MCV 87.4 fL (80-100) 02/06/19 19:52 MCH 30.3 pg (25-34) 02/06/19 19:52 MCHC 34.7 g/dL (32-36) 02/06/19 19:52 RDW Std Deviation 44.4 fL (36.4-46.3) 02/06/19 19:52 RDW Coeff of Kofi 13.9 % (11.5-14.5) 02/06/19 19:52 Plt Count 230 K/uL (130-400) 02/06/19 19:52 MPV 11.5 fL (7.4-10.4) H 02/06/19 19:52 Immature Gran % (Auto) 0.6 % 02/06/19 19:52 Neut % (Auto) 69.6 % 02/06/19 19:52 Lymph % (Auto) 22.6 % 02/06/19 19:52 [place] % (Auto) 5.1 % 02/06/19 19:52 Eos % (Auto) 1.5 % 02/06/19 19:52 Baso % (Auto) 0.6 % 02/06/19 19:52 Immature Gran # (Auto) 0.08 K/uL (0.00-0.02) H 02/06/19 19:52 Neut # (Auto) 8.64 K/uL (1.4-6.5) H 02/06/19 19:52 Lymph # (Auto) 2.81 K/uL (1.2-3.4) 02/06/19 19:52 [place] # (Auto) 0.63 K/uL (0.11-0.59) H 02/06/19 19:52 Eos # (Auto) 0.19 K/uL (0-0.5) 02/06/19 19:52 Baso # (Auto) 0.08 K/uL (0-0.2) 02/06/19 19:52 PT 10.0 Seconds (9.0-12.0) 02/06/19 19:52 INR 1.0 (0.9-1.1) 02/06/19 19:52 APTT 29.3 Seconds (21.0-31.0) 02/06/19 19:52 PTT Ratio 1.1 02/06/19 19:52 Sodium 137 mmol/L (136-145) 02/06/19 19:52 Potassium 3.9 mmol/L (3.5-5.1) 02/06/19 19:52 Chloride 101 mmol/L (98-107) 02/06/19 19:52 Carbon Dioxide 28 mmol/L (21-32) 02/06/19 19:52 Anion Gap 9.0 (3-11) 02/06/19 19:52 BUN 16 mg/dl (7-18) 02/06/19 19:52 Creatinine 0.89 mg/dl (0.6-1.2) 02/06/19 19:52 Est Cr Clr Drug Dosing 67.2 ml/min 02/06/19 19:52 Est GFR ( Amer) 75.0 02/06/19 19:52 Est GFR (Non-Af Amer) 64.7 02/06/19 19:52 BUN/Creatinine Ratio 18.2 (10-20) 02/06/19 19:52 Glucose 129 mg/dl (70-99) H 02/06/19 19:52 Calcium 10.0 mg/dl (8.5-10.1) 02/06/19 19:52 Magnesium 1.5 mg/dl (1.8-2.4) L 02/06/19 19:52 Total Bilirubin 0.7 mg/dl (0.2-1) 02/06/19 19:52 AST 13 U/L (15-37) L 02/06/19 19:52 ALT 18 U/L (12-78) 02/06/19 19:52 Alkaline Phosphatase 74 U/L (45-117) 02/06/19 19:52 Troponin I < 0.015 ng/ml (0-0.045) 02/06/19 19:52 Total Protein 7.8 gm/dl (6.4-8.2) 02/06/19 19:52 Albumin 4.0 gm/dl (3.4-5.0) 02/06/19 19:52 Globulin 3.8 gm/dl (2.5-4.0) 02/06/19 19:52 Albumin/Globulin Ratio 1.1 (0.9-2) 02/06/19 19:52 Lyme Disease IgG Ab Negative (Negative) 02/06/19 19:52 Lyme Disease IgM Ab Negative (Negative) 02/06/19 19:52 Diagnostic Findings [facility], [place] [phone] CT Scan Report Patient: VIOLETTE MERINOmit Date: 02/06/19 MR#: [id number]: [id number] [facility] [address] Acct ID:[id number]: Date: 1945[facility] Zip: [place] [address] Age: 73Location: ED Sex: F Room/Bed: Att Phy:Diagnosis: TIA SX Clarissa Phy: Kael Guzman, DOService Date: 02/06/19 Fam Phy:Interpreting Phy: Julian Sparks MD Admit Phy: Ordering Phy: Kwame Ty MD cc: ~ CT OF THE HEAD WITHOUT CONTRAST CLINICAL HISTORY: Stroke evaluation. Headache. COMPARISON STUDY: Head CT November 10, 2018. CT DOSE: 537.48 mGy.cm TECHNIQUE: Helical axial images of the head were obtained without IV contrast. Automated exposure control was utilized for the study. A dose lowering technique was utilized adhering to the principles of ALARA. FINDINGS: No acute intracranial hemorrhage, midline shift or mass effect is pre sent. The ventricular system is unremarkable. The basilar cisterns are patent. No extra-axial collections are present. There are no findings to suggest acute dural sinus thrombosis or acute territorial infarct. No significant calvarial abnormalities are present. Visualized portions of the sinuses and mastoid air cells are clear. White matter hypodensities are unchanged and suggest small vessel disease. IMPRESSION: No acute intracranial findings. Electronically signed by: Julian Sparks M.D. 02/06/2019 8:41 PM Dictated: 02/06/192038 Transcribed: 02/06/192038 [phone] X[facility] Report Patient: VIOLETTE MERINO LAdmit Date: 02/06/19 MR#: [id number]: [address] [facility] [address] Acct ID:[id number]: Date: 1945[facility] Zip: [id number] [id number] Age: 73Location: ED Sex: F Room/Bed: Att Phy:Diagnosis: TIA SX Clarissa Phy: Kael Guzman, DOService Date: 02/06/19 Fam Phy:Interpreting Phy: Julian Sparks MD Admit Phy: Ordering Phy: Kwame Ty MD cc: ~ XR chest 1V portable CLINICAL HISTORY: stroke COMPARISON STUDY: Chest radiograph December 17, 2018. FINDINGS: There is no pneumothorax or pleural effusion. Elevation of the right hemidiaphragm is unchanged. Linear right lung opacity favors atelectasis. There is no consolidation to suggest pneumonia and there is no evidence for pulmonary edema. IMPRESSION: No acute cardiopulmonary findings. No significant change in appearance of the chest. Electronically signed by: Julian Sparks M.D. 02/06/2019 9:03 PM Dictated: 02/06/192101 Transcribed: 02/06/192101 Code Status & VTE Plan Code Status Full code VTE Prophylaxis Plan VTE Prophylaxis will be ordered: Yes Critical Care Time Critical Care Time: Yes Total Critical Care Time: 55 Total critical care time was 55 minutes PG Care Time/CCT Total # of Minutes Spent Total Time Spent with Patient: Total time spent is greater than 50% in coordination of care (as documented) at patient's floor/unit and/or counseling patient: Critical Care Time: Yes Total Critical Care Time: 55
--- NOTE | 2019-02-07 01:57 | Critical Care Consultation ---
Date of Consultation February 07, 2019 Assessment & Plan (1) Admitted to intensive care unit: Reason Critically Ill: 73-year-old female admitted for CVA status post TPA 51 Neuro - CVA s/P TPA administration 5102/07/2019 -NIHS scale variable on admission went to 7, now 4 on arrival to ICU -CTA head and neck, no acute findings on preliminary reading -Follow-up MRI head -Follow-up bubble study -Follow-up lipid panel and hemoglobin A1c -TPA day 2 protocol 24 hours -Follow-up head CT at 24 hours -Frequent neuro checks -Monitor on telemetry -Routine NIHS scale Cardiac - HTNwe will continue lisinopril and MTP when appropriate -We will use IV antihypertensives for now, with goal systolic less than 180 considering permissive hypertension Respiratory - COPDpatient currently maintaining sats on 2 L nasal cannula -Continue DuoNeb every 4 hours as needed - Continuous monitoring oxygen saturation GI - N.p.o. for now Continue famotidine RENAL/LYTES - Hypomagnesemiareplete as necessary and monitor routine with BMPs - Strict I's and O's ENDO - Diabetes type 2follow-up hemoglobin A1c -ICU hyperglycemic protocol -We will start insulin aspart sliding scale HEME - H&H stable, monitor routine CBCs ID - No indication for infectious process at this time LINES/IV ACCESS - Peripheral IVs DVT PROPHYLAXIS - SCDs, holding anticoagulation following TPA administered CRITICAL CARE TIME - I have personally spent 35 minutes of critical care time in the direct management of this patient. This is a life/limb threatening event. This includes time spent evaluating patient, direct bedside care, chart review, placing orders, interpretation of diagnostic studies, discussion with consultants, patient, and family members, as well as other required patient management activities. This time is exclusive of all separately billable procedures, and teaching time and separate from and in addition to any other critical care service time. Thank you for allowing us to participate in the care of this patient. Please refer to my attending physician's documentation for any further recommendations. (2) COPD (chronic obstructive pulmonary disease): (3) CVA (cerebral vascular accident): (4) Hypertension: (5) Type 2 diabetes mellitus: History of Present Illness History of Present Illness Ms. Almeida is a 73-year-old female with past medical history COPD, hypertension, DM type II, GERD, anxiety and depression, HLD who presented to the emergency department with initial complaints of slurred speech, altered vision, and expressive aphasia. The claims that the patient had called him earlier in the day while driving and claims she was lost. He called the police who soon found her and brought her to the emergency department. He claims that the patient has been having headaches for the past 3 months and had a similar episode in October which was thought to be a TIA. On arrival to the emergency department her symptoms had subsided and her initial NIHSS was 0. However, her symptoms returned and stroke alert was initiated at that time. She will underwent CT of the head and neck which were negative for acute process. Neurologist at [facility] found patient be appropriate for TPA was administered at 0052. She was then transferred to the ICU for 24-hour post TPA administration protocol. On arrival to the ICU, patient was alert to self but confused with place and time. See exam below. She denies headache, syncope, weakness or loss of sensation, nausea or vomiting, sore throat, shortness of breath, chest pain, palpitations, abdominal pain, diarrhea. Allergies Allergy/AdvReac Type Severity Reaction Status Date / Time amoxicillin [From Augmentin] Allergy Severe Anaphylaxis Verified 01/25/19 15:20 cephalexin Allergy Severe Hives Verified 01/25/19 15:20 clavulanic acid Allergy Severe Anaphylaxis Verified 01/25/19 15:20 [From Augmentin] Home Medications Home Medications Medication Instructions Recorded Confirmed Type albuterol sulfate 90 mcg/actuation 1 - 2 puff INHALATION QID PRN #3 gm 09/30/18 02/06/19 History aerosol inhaler cholecalciferol (vitamin D3) 1,000 1,000 units PO DAILY cap 11/08/18 02/06/19 History unit capsule ipratropium-albuterol 0.5 mg-3 3 ml INHALATION Q4H PRN #1 ml 11/08/18 02/06/19 History mg(2.5 mg base)/3 mL nebulization soln lisinopril 5 mg tablet 5 mg PO PM #1 tab 11/08/18 02/06/19 History metformin 1,000 mg tablet 1,000 mg PO BID #60 tab 11/08/18 02/06/19 History pioglitazone 15 mg tablet 15 mg PO DAILY #30 tab 11/08/18 02/06/19 History clopidogrel 75 mg tablet 75 mg PO DAILY #90 tab 11/11/18 02/06/19 Rx ranitidine HCl 150 mg tablet 150 mg PO BID #60 tab 11/11/18 02/06/19 Rx insulin detemir U-100 100 unit/mL 9 units SUBCUT HS #15 ml 11/21/18 02/06/19 Rx (3 mL) subcutaneous pen venlafaxine 150 mg 150 mg PO DAILY #90 cap 12/16/18 02/06/19 Rx capsule,extended release 24 hr acetaminophen [Tylenol Extra 1,000 mg PO Q6H PRN 12/17/18 02/06/19 History Strength] semaglutide 0.25 mg or 0.5 mg (2 0.25 mg SQ WEEKLY ml 01/07/19 02/06/19 History mg/1.5 mL) subcutaneous pen injector atorvastatin 40 mg tablet 40 mg PO HS #90 tab 01/16/19 02/06/19 Rx metoprolol succinate 50 mg 50 mg PO QAM 90 Days #90 tab 01/17/19 02/06/19 Rx tablet,extended release 24 hr clonazepam 0.5 mg tablet 0.5 mg PO HS #30 tab 02/03/19 02/06/19 Rx biotin 10,000 mcg PO DAILY 02/06/19 02/06/19 History Patient History Medical History Hypertension SVT (supraventricular tachycardia) Type 2 diabetes mellitus Surgical History History of colonoscopy History of dilation and curettage History of tonsillectomy History of tooth extraction Family History Mother Myocardial infarction Grandmother Breast cancer Kidney disease Hypertension Aunt Alzheimer disease Social History Preferred Language: Mongolian Communication Ability: Effective Multimedia Instructional Designer Required: No Beliefs That Will Affect Care: None marital status: Current Living Situation: Spouse current occupational status: retired Feels Safe at Home: Yes Smoking Status: Current every day smoker Tobacco Type: cigarettes ; Cigarettes Per Day: 20 ; Second Hand Exposure: Yes ; Hx Alcohol Use: Yes Hx Substance Use: No Dental Care, Regularly: No Review of Systems Review of Systems: All systems reviewed & are unremarkable except as noted in HPI & below Physical Exam Constitutional: cooperative and comfortable Eyes: PERRL, conjunctivae normal, anicteric sclerae ENMT: external ear and nose normal, oropharynx normal Neck: trachea midline, no thyromegaly Respiratory: normal respiratory effort, lungs clear to auscultation Cardiovascular: RRR, no murmur, no edema Heart Sounds: normal S1 and normal S2 Vessels: no JVD Extremities: no edema Gastrointestinal (Abdomen): normal bowel sounds, soft, nontender, no hepatosplenomegaly Musculoskeletal: no cyanosis or clubbing, extremities motor strength 5/5 Skin: no rashes, warm and dry Neurologic: CN's II-XI intact bilaterally, moves all extremities and + confused Speech / Cognition: + abnormal speech Motor/Sensory: no pronator drift and no sensory deficit PERRLA Psychiatric: Orientation: oriented to person and cooperative; + not oriented to place and + not oriented to time Affect: + flat affect Results & Data Vital Signs (Past 12 Hours) Vital Signs Temp Pulse Pulse Resp BP BP Pulse Ox 02/07/19 01:37 94 H 92 H 20 164/89 H 151/97 H 96 02/07/19 01:22 93 H 18 160/110 H 96 02/07/19 01:07 93 H 18 175/101 H 98 02/07/19 01:01 91 H 25 H 175/101 H 97 02/07/19 00:51 94 H 16 142/92 H 97 02/07/19 00:48 94 H 25 H 193/119 H 89 L 02/07/19 00:41 94 H 25 H 189/109 H 95 02/07/19 00:38 96 H 23 176/113 H 95 02/07/19 00:36 98 H 18 149/128 H 97 02/07/19 00:31 96 H 25 H 128/100 02/07/19 00:10 97 H 18 171/96 H 92 02/07/19 00:00 102 H 21 171/96 H 02/06/19 23:58 101 H 21 171/94 H 91 02/06/19 23:31 92 H 21 176/83 H 91 02/06/19 23:24 90 20 143/117 H 92 02/06/19 23:10 94 H 20 194/91 H 96 02/06/19 23:00 98 H 17 100 02/06/19 22:54 86 22 190/105 H 93 02/06/19 22:33 93 H 19 02/06/19 22:32 96 H 22 197/120 H 97 02/06/19 22:30 94 H 20 02/06/19 22:01 87 18 02/06/19 22:00 82 17 144/69 H 02/06/19 21:31 88 19 97 02/06/19 21:30 86 21 150/111 H 95 02/06/19 21:01 87 23 92 02/06/19 21:00 86 24 150/90 H 94 02/06/19 20:46 87 19 94 02/06/19 20:45 80 22 137/83 95 02/06/19 20:44 85 20 02/06/19 20:00 85 19 02/06/19 19:57 36.8 C 90 22 149/108 H 97 02/06/19 19:54 89 19 02/06/19 19:51 90 20 149/108 H Coding Level of Care Code Critical Care 1st 30-74 mins Diagnoses Admitted to intensive care unit Z78.9 COPD (chronic obstructive pulmonary disease) J44.9 CVA (cerebral vascular accident) I63.9 Hypertension I10 Type 2 diabetes mellitus E11.9
[2019-02-07] MEDS ORDERED: GLUCOSE 10 TABS/TUBE PO PRN (01:59)
[2019-02-07] MEDS ORDERED: DEXTROSE 50% 50 ML SYRINGE IV PRN (01:59)
[2019-02-07] MEDS ORDERED: GLUCAGON FOR INJ 1 MG VIAL SQ PRN (01:59)
[2019-02-07] MEDS ORDERED: ALBUT/IPRATROP 3MG/0.5MG NEB 3 ML VIAL INH PRN (01:59)
[2019-02-07] MEDS ORDERED: ICU PROTOCOL FOR HYPERGLYCEMIA PRN (01:59)
[2019-02-07] MEDS ORDERED: CARBOHYDRATES FOR HYPOGLYCEMIA PO PRN (01:59)
[2019-02-07] MEDS ORDERED: GLUCOSE 40% GEL 15 GM TUBE PO PRN (01:59)
--- NOTE | 2019-02-07 02:03 | Emergency Department Note ---
Entered by Catarina Sarkar acting as a scribe for Kwame Ty MD ED Provider Note CHIEF COMPLAINT: TIA symptoms HISTORY OF PRESENT ILLNESS: The patient is a 73 year old female who presents to the Emergency Room with complaints of TIA symptoms. The patient explains that at 5:30PM today her right sided vision became blurry and she noticed that she could not talk. She states she went to [employer] for dinner and was driving home when she became confused and got lost. At 6:00PM she was driving around until she stopped somewhere but could not figure out how to find a phone number. Her called and then someone called 911. When EMT arrived they state that they noticed expressive aphasia and blurriness in her right eye. The patient states she was feeling better during her ride to the ED and reports she currently feels alright right now aside from a headache. She is been having headaches daily since the summertime. She states that the blurriness in her right eye has resolved but that the left side of her neck now feels tight. She reports that she has a TIA about 1 month ago and takes Plavix regularly. She follows with Dr. Galarza, [facility] and her PCP is Dr. Guzman. The patient also notes that for the last 2 days she has been experiencing chest tenderness which is exacerbated by coughing. Additionally she complains of her left shoulder blade hurting recently but has since resolved. Pt denies LOC, fevers, chills, diaphoresis, double vision, neck pain, chest pain, breathing difficulties, nausea, vomiting, abdominal pain, back pain, melena, hematochezia, urinary symptoms, numbness, tingling, dizziness, lightheadedness, weakness, lymphadenopathy, rash, or other complaints. REVIEW OF SYSTEMS: See HPI for pertinent positives and negatives. A total of ten systems were reviewed and were otherwise negative. PMHx/PSHx: TIA, HTN, COPD, SVT, Type 2 DM, anxiety SOCIAL HISTORY: Patient lives at home. PHYSICAL EXAM: GENERAL: Awake, alert, well-appearing, in no distress HENT: Normocephalic, atraumatic. Oropharynx unremarkable. EYES: PERRL. Normal conjunctiva. Sclera non-icteric. NECK: Inspection normal. Non-tender. Supple. No nuchal rigidity. FROM. No masses. RESPIRATORY: Clear to auscultation. No wheezes. No rales. Normal respiratory effort. CARDIAC: Normal rate. Normal rhythm. No murmurs. No rubs. Extremities warm and well perfused. Pulses equal. No JVD. CHEST: Sternum soreness to palpation (ongoing). GI: Soft, non-distended. No tenderness to palpation. No rebound or guarding. No masses. RECTAL: Deferred. MUSCULOSKELETAL: Atraumatic. Chest examination reveals no tenderness. The back is symmetrical on inspection without obvious abnormality. There is no CVA tenderness to palpation. No joint edema. LOWER EXTREMITIES: Calves are equal size bilaterally and non-tender. No edema. No discoloration. NEURO: Normal sensorium. No sensory or motor deficits noted. No drift. Normal MIRANDA. Normal heel to aceves. Cranial nerves II through XII intact. SKIN: No rash or jaundice noted. EMERGENCY DEPARTMENT COURSE: 2000: The patient was evaluated in room C02B, and a complete history and physical 2238: Reassessment; pt said she developed a headache and requested pain meds so they were ordered, no recurrent neurologic sx, discussed further management in hospital due to stroke like sx,ordered CT angiogram. Spoke to for admission. 0: The patient states that her headache is better but feels slightly confused so she is going for additional imaging. 2300: The patient is now having slurred speech and more confusion. There is a slight right facial droop present. I spoke to Dr. Knutson and called a stroke alert. 2317: Spoke to Dr. Coy, [place] tele-stroke who said that its a difficult situation due to her presentation and her examination. She requested a repeat dry CT in addition to the angiography and already addressed TPA with the patient and her significant other. Dr. Coy said not to mix TPA at this point as she wants to see the patient's CT results first. The pt is over at CT and Dr. 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 Prior work-up for CVA/TIA performed. MRI and CT imaging negative. Nursing notes reviewed and agree them. Additional history obtained from the patient significant other. The patient's history was concerning for visual disturbance and aphasia. Differential diagnosis: Etiologies such as TIA/CVA, metabolic, infection, hypo/hyperglycemia, electrolyte abnormalities, cardiac sources, intracerebral event, toxicologic, neurologic, as well as others were entertained. Physical examination: As above. Upon presentation the patient had a nonfocal neurologic examination. After work-up the patient developed symptoms concerning for recurrent neurologic event. Stroke alert initiated. The patient did have a mild right facial droop. Speech was slurred. She was confused. ER treatment provided: IV Lock Patient took her own Tylenol IV morphine and Zofran IV fentanyl IV labetalol IV TPA Diagnostics interpretation by me: ECG: Sinus rhythm without ischemia or dysrhythmia. The labs revealed an unremarkable CBC, chemistry panel, and coags except for a mild leukocytosis and hemoconcentration. Imaging studies: CT imaging of the head including CT angiography was performed and did not reveal any acute process. Consultation: Consultation was made with the hospitalist service, Dr. Nehemias Knutson. The case was discussed. Patient was evaluated. Upon his evaluation patient then started to have additional neurologic symptoms. A stroke alert was initiated. I did consult with Dr. Coy. After additional evaluation TPA was recommended. She did consent the patient for TPA and her significant other. I also reviewed the risk and benefits. The patient and significant other consented to TPA administration and this was performed in the standard fashion. Patient presented with neurologic symptoms that resolved and then recurred in the emergency department. The patient developed a headache. She is been having daily headaches for months. She did not have a fever. She does have some hemoconcentration and mild leukocytosis which is slightly different than prior. She was hydrated with normal saline. Her symptoms were treated as above. After recurrence of neurologic symptoms stroke alert was initiated. At that point in time [facility] tele-stroke recommended TPA. This was done. Internal medicine was involved and admitted the patient to the ICU for further care. IMPRESSION: CVA Headache PLAN: The scribe's documentation has been prepared under my direction and personally reviewed by me in its entirety. I confirm that the note above accurately reflects all work, treatment, procedures, and medical decision making performed by me. CRITICAL CARE: I have personally spent greater than 75 minutes of critical care time in the direct management of this patient. This includes bedside care, interpretation of diagnostic studies, and testing, discussion with consultants, patient, and family members, and other required patient management activities. This 75 minutes is in excess of all separately billable procedures. Note: There was a delay in finishing this document secondary to computer upgraded causing a downtime the night of admission. Impression & Plan TIA (transient ischemic attack) Past Med/Surg History Medical History Hypertension SVT (supraventricular tachycardia) Type 2 diabetes mellitus Surgical History History of colonoscopy History of dilation and curettage History of tonsillectomy History of tooth extraction Family History Mother Myocardial infarction Grandmother Breast cancer Kidney disease Hypertension Aunt Alzheimer disease Social History Preferred Language: Persian Communication Ability: Effective Habitat Management Coordinator Required: No Beliefs That Will Affect Care: None marital status: Current Living Situation: Spouse current occupational status: retired Feels Safe at Home: Yes Smoking Status: Current every day smoker Tobacco Type: cigarettes ; Cigarettes Per Day: 20 ; Second Hand Exposure: Yes ; Hx Alcohol Use: Yes Hx Substance Use: No Dental Care, Regularly: No Results & Data Vital Signs Vital Signs - 24 hr 02/06/19 19:51 02/06/19 19:54 02/06/19 19:57 Temperature 36.8 C Temperature Source Oral Sepsis Recent Fever Within 48 Hours No Sepsis New/Unexplained Change in Mental Status No Sepsis Action Taken by Nursing No Action Required Pulse Rate 90 89 90 Pulse Rate [Right Finger] Pulse Rate from SpO2 Sensor Respiratory Rate 20 19 22 Respiratory Effort / Characteristics Non-Labored Spontaneous Respiratory Depth Normal Respiratory Pattern Regular Blood Pressure 149/108 H 149/108 H Blood Pressure [Right Arm] Blood Pressure Mean 121 121 Blood Pressure Mean [Right Arm] Blood Pressure Position [Right Arm] Pulse Oximetry 97 Oxygen Delivery Method Room Air Oxygen Flow Rate 02/06/19 20:00 02/06/19 20:44 02/06/19 20:45 Temperature Temperature Source Sepsis Recent Fever Within 48 Hours Sepsis New/Unexplained Change in Mental Status Sepsis Action Taken by Nursing Pulse Rate 85 85 80 Pulse Rate [Right Finger] Pulse Rate from SpO2 Sensor 84 80 Respiratory Rate 19 20 22 Respiratory Effort / Characteristics Respiratory Depth Respiratory Pattern Blood Pressure 137/83 Blood Pressure [Right Arm] Blood Pressure Mean 101 Blood Pressure Mean [Right Arm] Blood Pressure Position [Right Arm] Pulse Oximetry 95 Oxygen Delivery Method Oxygen Flow Rate 02/06/19 20:46 02/06/19 21:00 02/06/19 21:01 Temperature Temperature Source Sepsis Recent Fever Within 48 Hours Sepsis New/Unexplained Change in Mental Status Sepsis Action Taken by Nursing Pulse Rate 87 86 87 Pulse Rate [Right Finger] Pulse Rate from SpO2 Sensor 85 86 89 Respiratory Rate 19 24 23 Respiratory Effort / Characteristics Respiratory Depth Respiratory Pattern Blood Pressure 150/90 H Blood Pressure [Right Arm] Blood Pressure Mean 110 Blood Pressure Mean [Right Arm] Blood Pressure Position [Right Arm] Pulse Oximetry 94 94 92 Oxygen Delivery Method Oxygen Flow Rate 02/06/19 21:30 02/06/19 21:31 02/06/19 22:00 Temperature Temperature Source Sepsis Recent Fever Within 48 Hours Sepsis New/Unexplained Change in Mental Status Sepsis Action Taken by Nursing Pulse Rate 86 88 82 Pulse Rate [Right Finger] Pulse Rate from SpO2 Sensor 86 88 Respiratory Rate 21 19 17 Respiratory Effort / Characteristics Respiratory Depth Respiratory Pattern Blood Pressure 150/111 H 144/69 H Blood Pressure [Right Arm] Blood Pressure Mean 124 94 Blood Pressure Mean [Right Arm] Blood Pressure Position [Right Arm] Pulse Oximetry 95 97 Oxygen Delivery Method Oxygen Flow Rate 02/06/19 22:01 02/06/19 22:30 02/06/19 22:32 Temperature Temperature Source Sepsis Recent Fever Within 48 Hours Sepsis New/Unexplained Change in Mental Status Sepsis Action Taken by Nursing Pulse Rate 87 94 H 96 H Pulse Rate [Right Finger] Pulse Rate from SpO2 Sensor Respiratory Rate 18 20 22 Respiratory Effort / Characteristics Respiratory Depth Respiratory Pattern Blood Pressure 197/120 H Blood Pressure [Right Arm] Blood Pressure Mean 145 Blood Pressure Mean [Right Arm] Blood Pressure Position [Right Arm] Pulse Oximetry 97 Oxygen Delivery Method Oxygen Flow Rate 02/06/19 22:33 02/06/19 22:54 02/06/19 23:00 Temperature Temperature Source Sepsis Recent Fever Within 48 Hours Sepsis New/Unexplained Change in Mental Status Sepsis Action Taken by Nursing Pulse Rate 93 H 86 98 H Pulse Rate [Right Finger] Pulse Rate from SpO2 Sensor 85 88 Respiratory Rate 19 22 17 Respiratory Effort / Characteristics Respiratory Depth Respiratory Pattern Blood Pressure 190/105 H Blood Pressure [Right Arm] Blood Pressure Mean 133 Blood Pressure Mean [Right Arm] Blood Pressure Position [Right Arm] Pulse Oximetry 93 100 Oxygen Delivery Method Oxygen Flow Rate 02/06/19 23:10 02/06/19 23:24 02/06/19 23:31 Temperature Temperature Source Sepsis Recent Fever Within 48 Hours Sepsis New/Unexplained Change in Mental Status Sepsis Action Taken by Nursing Pulse Rate 94 H 90 92 H Pulse Rate [Right Finger] Pulse Rate from SpO2 Sensor 95 H 92 H 93 H Respiratory Rate 20 20 21 Respiratory Effort / Characteristics Respiratory Depth Respiratory Pattern Blood Pressure 194/91 H 143/117 H 176/83 H Blood Pressure [Right Arm] Blood Pressure Mean 125 125 114 Blood Pressure Mean [Right Arm] Blood Pressure Position [Right Arm] Pulse Oximetry 96 92 91 Oxygen Delivery Method Oxygen Flow Rate 02/06/19 23:58 02/07/19 00:00 02/07/19 00:10 Temperature Temperature Source Sepsis Recent Fever Within 48 Hours Sepsis New/Unexplained Change in Mental Status Sepsis Action Taken by Nursing Pulse Rate 101 H 102 H Pulse Rate [Right Finger] 97 H Pulse Rate from SpO2 Sensor 100 H Respiratory Rate 21 21 18 Respiratory Effort / Characteristics Non-Labored Respiratory Depth Normal Respiratory Pattern Regular Blood Pressure 171/94 H 171/96 H Blood Pressure [Right Arm] 171/96 H Blood Pressure Mean 119 121 Blood Pressure Mean [Right Arm] 121 Blood Pressure Position [Right Arm] Lying Pulse Oximetry 91 92 Oxygen Delivery Method Room Air Oxygen Flow Rate 02/07/19 00:31 02/07/19 00:36 02/07/19 00:38 Temperature Temperature Source Sepsis Recent Fever Within 48 Hours Sepsis New/Unexplained Change in Mental Status Sepsis Action Taken by Nursing Pulse Rate 96 H 98 H 96 H Pulse Rate [Right Finger] Pulse Rate from SpO2 Sensor 97 H 96 H Respiratory Rate 25 H 18 23 Respiratory Effort / Characteristics Respiratory Depth Respiratory Pattern Blood Pressure 128/100 149/128 H 176/113 H Blood Pressure [Right Arm] Blood Pressure Mean 109 135 134 Blood Pressure Mean [Right Arm] Blood Pressure Position [Right Arm] Pulse Oximetry 97 95 Oxygen Delivery Method Oxygen Flow Rate 02/07/19 00:41 02/07/19 00:48 02/07/19 00:51 Temperature Temperature Source Sepsis Recent Fever Within 48 Hours Sepsis New/Unexplained Change in Mental Status Sepsis Action Taken by Nursing Pulse Rate 94 H 94 H 94 H Pulse Rate [Right Finger] Pulse Rate from SpO2 Sensor 95 H 95 H 94 H Respiratory Rate 25 H 25 H 16 Respiratory Effort / Characteristics Respiratory Depth Respiratory Pattern Blood Pressure 189/109 H 193/119 H 142/92 H Blood Pressure [Right Arm] Blood Pressure Mean 135 143 108 Blood Pressure Mean [Right Arm] Blood Pressure Position [Right Arm] Pulse Oximetry 95 89 L 97 Oxygen Delivery Method Nasal Cannula Oxygen Flow Rate 2 02/07/19 01:01 02/07/19 01:07 Temperature Temperature Source Sepsis Recent Fever Within 48 Hours Sepsis New/Unexplained Change in Mental Status Sepsis Action Taken by Nursing Pulse Rate 91 H Pulse Rate [Right Finger] 93 H Pulse Rate from SpO2 Sensor 91 H Respiratory Rate 25 H 18 Respiratory Effort / Characteristics Non-Labored Spontaneous Respiratory Depth Normal Respiratory Pattern Regular Blood Pressure 175/101 H Blood Pressure [Right Arm] 175/101 H Blood Pressure Mean 125 Blood Pressure Mean [Right Arm] 125 Blood Pressure Position [Right Arm] Lying Pulse Oximetry 97 98 Oxygen Delivery Method Nasal Cannula Oxygen Flow Rate 2 Home Medications Current Medication List: was personally reviewed by me Laboratory Data Attestation: I reviewed the patient's lab results. Result diagrams: 02/08/19 04:39 02/08/19 04:39 Lab Results 02/06/19 02/06/19 02/06/19 Range/Units 19:52 19:52 19:52 WBC 12.43 H (4.8-10.8) K/uL RBC 5.41 H (4.2-5.4) M/uL Hgb 16.4 H (12.0-16.0) g/dL Hct 47.3 H (37-47) % MCV 87.4 (80-100) fL MCH 30.3 (25-34) pg MCHC 34.7 (32-36) g/dL RDW Std Deviation 44.4 (36.4-46.3) fL RDW Coeff of Kofi 13.9 (11.5-14.5) % Plt Count 230 (130-400) K/uL MPV 11.5 H (7.4-10.4) fL Immature Gran % (Auto) 0.6 % Neut % (Auto) 69.6 % Lymph % (Auto) 22.6 % [place] % (Auto) 5.1 % Eos % (Auto) 1.5 % Baso % (Auto) 0.6 % Immature Gran # (Auto) 0.08 H (0.00-0.02) K/uL Neut # (Auto) 8.64 H (1.4-6.5) K/uL Lymph # (Auto) 2.81 (1.2-3.4) K/uL [place] # (Auto) 0.63 H (0.11-0.59) K/uL Eos # (Auto) 0.19 (0-0.5) K/uL Baso # (Auto) 0.08 (0-0.2) K/uL PT 10.0 (9.0-12.0) Seconds INR 1.0 (0.9-1.1) APTT 29.3 (21.0-31.0) Seconds PTT Ratio 1.1 Sodium 137 (136-145) mmol/L Potassium 3.9 (3.5-5.1) mmol/L Chloride 101 (98-107) mmol/L Carbon Dioxide 28 (21-32) mmol/L Anion Gap 9.0 (3-11) BUN 16 (7-18) mg/dl Creatinine 0.89 (0.6-1.2) mg/dl Est Cr Clr Drug Dosing 67.2 ml/min Est GFR ( Amer) 75.0 Est GFR (Non-Af Amer) 64.7 BUN/Creatinine Ratio 18.2 (10-20) Glucose 129 H (70-99) mg/dl Calcium 10.0 (8.5-10.1) mg/dl Magnesium 1.5 L (1.8-2.4) mg/dl Total Bilirubin 0.7 (0.2-1) mg/dl AST 13 L (15-37) U/L ALT 18 (12-78) U/L Alkaline Phosphatase 74 (45-117) U/L Troponin I < 0.015 (0-0.045) ng/ml Total Protein 7.8 (6.4-8.2) gm/dl Albumin 4.0 (3.4-5.0) gm/dl Globulin 3.8 (2.5-4.0) gm/dl Albumin/Globulin Ratio 1.1 (0.9-2) Homocysteine (<10.4) UMOL/L Lyme Disease IgG Ab (Negative) Lyme Disease IgM Ab (Negative) 02/06/19 02/06/19 Range/Units 19:52 23:11 WBC (4.8-10.8) K/uL RBC (4.2-5.4) M/uL Hgb (12.0-16.0) g/dL Hct (37-47) % MCV (80-100) fL MCH (25-34) pg MCHC (32-36) g/dL RDW Std Deviation (36.4-46.3) fL RDW Coeff of Kofi (11.5-14.5) % Plt Count (130-400) K/uL MPV (7.4-10.4) fL Immature Gran % (Auto) % Neut % (Auto) % Lymph % (Auto) % [place] % (Auto) % Eos % (Auto) % Baso % (Auto) % Immature Gran # (Auto) (0.00-0.02) K/uL Neut # (Auto) (1.4-6.5) K/uL Lymph # (Auto) (1.2-3.4) K/uL [place] # (Auto) (0.11-0.59) K/uL Eos # (Auto) (0-0.5) K/uL Baso # (Auto) (0-0.2) K/uL PT (9.0-12.0) Seconds INR (0.9-1.1) APTT (21.0-31.0) Seconds PTT Ratio Sodium (136-145) mmol/L Potassium (3.5-5.1) mmol/L Chloride (98-107) mmol/L Carbon Dioxide (21-32) mmol/L Anion Gap (3-11) BUN (7-18) mg/dl Creatinine (0.6-1.2) mg/dl Est Cr Clr Drug Dosing ml/min Est GFR ( Amer) Est GFR (Non-Af Amer) BUN/Creatinine Ratio (10-20) Glucose (70-99) mg/dl Calcium (8.5-10.1) mg/dl Magnesium (1.8-2.4) mg/dl Total Bilirubin (0.2-1) mg/dl AST (15-37) U/L ALT (12-78) U/L Alkaline Phosphatase (45-117) U/L Troponin I (0-0.045) ng/ml Total Protein (6.4-8.2) gm/dl Albumin (3.4-5.0) gm/dl Globulin (2.5-4.0) gm/dl Albumin/Globulin Ratio (0.9-2) Homocysteine 15.1 H (<10.4) UMOL/L Lyme Disease IgG Ab Negative (Negative) Lyme Disease IgM Ab Negative (Negative) Administered Medications Discontinued Medications Acetaminophen (Tylenol) 650 mg PO Q4H PRN PRN Reason: pain or headache Stop: 03/09/19 09:44 Last Admin: 02/08/19 07:58 Dose: 650 mg Documented by: [id number] Admin: 02/08/19 01:40 Dose: 650 mg Documented by: [id number] Admin: 02/07/19 15:19 Dose: 650 mg Documented by: [id number] Admin: 02/07/19 09:57 Dose: 650 mg Documented by: [id number] Albuterol (Duoneb) Confirm Administered Dose 3 ml .ROUTE .[facility]-MED ONE Stop: 02/06/19 22:55 Last Admin: 02/06/19 23:22 Dose: 3 ml Documented by: [id number] Alteplase, Recombinant (Activase For Stroke) 1 ea IV NOW STA; Protocol Stop: 02/07/19 00:26 Last Admin: 02/07/19 00:35 Dose: 1 ea Documented by: [id number] Atorvastatin Calcium (Lipitor) 40 mg PO HS PAVITHRA Stop: 03/09/19 20:59 Last Admin: 02/07/19 21:33 Dose: 40 mg Documented by: [id number] Clopidogrel Bisulfate (Plavix) 75 mg PO QAM PAVITHRA Stop: 03/10/19 08:59 Last Admin: 02/08/19 08:01 Dose: 75 mg Documented by: [id number] Famotidine (Pepcid) 20 mg PO BID PAVITHRA Stop: 03/10/19 08:59 Last Admin: 02/08/19 08:01 Dose: 20 mg Documented by: [id number] Fentanyl Citrate (Fentanyl Citrate) 25 mcg IV NOW STA Stop: 02/07/19 00:38 Last Admin: 02/07/19 00:44 Dose: 25 mcg Documented by: [id number] Fentanyl Citrate (Fentanyl Citrate) 25 mcg IV NOW STA Stop: 02/07/19 01:16 Last Admin: 02/07/19 01:18 Dose: 25 mcg Documented by: [id number] Sodium Chloride (Nss 1000ml) 1,000 mls @ 50 mls/hr IV .Q20H PAVITHRA Stop: 03/08/19 20:14 Last Infusion: 02/07/19 09:55 Dose: 0 mls/hr Documented by: [id number] Admin: 02/07/19 06:16 Dose: 50 mls/hr Documented by: [id number] Infusion: 02/07/19 06:16 Dose: 50 mls/hr Documented by: [id number] Admin: 02/06/19 20:51 Dose: 50 mls/hr Documented by: [id number] Magnesium Sulfate/Dextrose (Magnesium Sulfate / D5w) 1 gm in 100 mls @ 100 mls/hr IV Q1H PAVITHRA Stop: 02/07/19 01:04 Last Infusion: 02/07/19 00:45 Dose: 0 mls/hr Documented by: [id number] Admin: 02/06/19 23:27 Dose: 100 mls/hr Documented by: [id number] Infusion: 02/06/19 23:27 Dose: 100 mls/hr Documented by: [id number] Admin: 02/06/19 23:26 Dose: 100 mls/hr Documented by: [id number] Alteplase, Recombinant 76 mg/ (EMPTY BAG) 76 mls @ 76 mls/hr IV ONCE ONE Stop: 02/07/19 00:38 Last Infusion: 02/07/19 01:58 Dose: 0 mls/hr Documented by: [id number] Cosigned by: [id number] Admin: 02/07/19 00:58 Dose: 76 mls/hr Documented by: [id number] Cosigned by: [id number] Alteplase, Recombinant 8.4 mg/ (Syringe) 8.4 mls @ 8.4 mls/min IV ONCE ONE Stop: 02/07/19 00:37 Last Admin: 02/07/19 00:52 Dose: 8.4 mls/min Documented by: [id number] Cosigned by: [id number] Famotidine 20 mg/ Syringe 5 mls @ 2.5 mls/min IV Q12H PAVITHRA Stop: 02/08/19 08:59 Last Admin: 02/07/19 21:34 Dose: 2.5 mls/min Documented by: [id number] Admin: 02/07/19 09:57 Dose: 2.5 mls/min Documented by: [id number] Parenteral Electrolytes (Normosol-R) 1,000 mls @ 250 mls/hr IV .Q4H ONE Stop: 02/08/19 01:42 Last Infusion: 02/08/19 01:41 Dose: 0 mls/hr Documented by: [id number] Admin: 02/07/19 21:48 Dose: 250 mls/hr Documented by: [id number] Ibuprofen (Advil) 400 mg PO NOW STA Stop: 02/07/19 16:46 Last Admin: 02/07/19 16:55 Dose: 400 mg Documented by: [id number] Insulin Aspart (Novolog Flexpen) 0 units SC ACHS PAVITHRA Stop: 03/09/19 07:29 Last Admin: 02/08/19 12:07 Dose: 3 units Documented by: [id number] Cosigned by: [id number] Admin: 02/08/19 07:55 Dose: 3 units Documented by: [id number] Cosigned by: [id number] Admin: 02/07/19 21:30 Dose: 5 units Documented by: [id number] Cosigned by: [id number] Admin: 02/07/19 17:25 Dose: 3 units Documented by: [id number] Cosigned by: [id number] Admin: 02/07/19 11:54 Dose: 7 units Documented by: [id number] Cosigned by: [id number] Admin: 02/07/19 07:43 Dose: 1 units Documented by: [id number] Cosigned by: [id number] Ioversol (Optiray 320 125ml) 125 ml IV ONCE PRN PRN Reason: Interaction Checking Stop: 02/11/19 00:09 Last Admin: 02/07/19 00:10 Dose: 120 ml Documented by: [id number] Labetalol HCl (Normodyne) 5 mg IV NOW STA Stop: 02/07/19 00:39 Last Admin: 02/07/19 00:47 Dose: 5 mg Documented by: [id number] Cosigned by: [id number] Labetalol HCl (Normodyne) Confirm Administered Dose 5 mg IV .STK-MED ONE Stop: 02/07/19 03:30 Last Admin: 02/07/19 03:29 Dose: 5 mg Documented by: [id number] Cosigned by: [id number] Labetalol HCl (Normodyne) 5 mg IV NOW STA Stop: 02/07/19 05:53 Last Admin: 02/07/19 06:19 Dose: Not Given Documented by: [id number] Lidocaine HCl (Xylocaine 1% (Local)) Confirm Administered Dose 20 ml .ROUTE .STK-MED ONE Stop: 02/08/19 12:42 Last Admin: 02/08/19 14:37 Dose: Not Given Documented by: [id number] Magnesium Sulfate/Dextrose (Magnesium Sulfate / D5w) Confirm Administered Dose 2 gm IV .STK-MED ONE Stop: 02/06/19 23:12 Last Admin: 02/06/19 23:26 Dose: Not Given Documented by: [id number] Morphine Sulfate (Morphine Sulfate) 2 mg IV NOW STA Stop: 02/06/19 22:23 Last Admin: 02/06/19 22:33 Dose: 2 mg Documented by: [id number] Ondansetron HCl (Zofran) 4 mg IV NOW STA Stop: 02/06/19 22:23 Last Admin: 02/06/19 22:33 Dose: 4 mg Documented by: [id number] Discharge Plan Visit Data *Final* Discharge Date/Time: 02/07/19 01:37 Chief Complaint: TIA Symptoms Stated Complaint: TIA SX ED Provider: Kwame Ty Discharge Problem: TIA (transient ischemic attack) Patient Disposition: Admitted As Inpatient Discharge Instructions Interventions: ED Discharge Assessment Last Done: 02/07/19 01:37 The scribe's documentation has been prepared under my direction and personally reviewed by me in its entirety. I confirm that the note above accurately reflects all work, treatment, procedures, and medical decision making performed by me.
[2019-02-07] MEDS ORDERED: LABETALOL HCL IV 5 MG/ML 20ML IV ONE (03:29)
[2019-02-07] MEDS ORDERED: PHARMACIST DISCHARGE MED REC CONSULT PRN (04:11)
[2019-02-07] MEDS: SODIUM CHLORIDE 0.9% 1000ML 1,000 ML IV SCH (06:16)
--- NOTE | 2019-02-07 06:30 | CT Scan Report ---
CT head/brain wo con CLINICAL HISTORY: Strokelike symptoms NEW SYMPTOMS SINCE PRIOR STUDY COMPARISON STUDY: 02/06/2019 TECHNIQUE: Axial CT of the brain is performed from the vertex to the skull base. IV contrast was not administered for this examination. A dose lowering technique was utilized adhering to the principles of ALARA. CT DOSE: FINDINGS: No intra or extra-axial mass lesions are visualized. There is no CT evidence of acute cortical infarc tion. There is no evidence of midline shift. There is no acute hemorrhage. No calvarial fractures ar e visualized. There are mild white matter hypodensities likely on a small vessel basis. There is no evidence of pathologic ventricular dilatation. There is no evidence of acute sinusitis IMPRESSION: No acute intracranial findings Electronically signed by: Clayton Duarte M.D. 02/07/2019 6:29 AM
--- NOTE | 2019-02-07 06:41 | CT Scan Report ---
CT angio head w con CLINICAL HISTORY: stroke like symptoms TECHNIQUE: CT angiography of the head was performed in a dynamic helical fashion during intravenous a dministration of 120 cc of Optiray 320. MIP imaging was performed. A dose lowering technique was util ized adhering to the principles of ALARA. CT DOSE: 1138.59 mGy.cm COMPARISON STUDY: Noncontrast head CT dated 02/06/2019 FINDINGS: There are no lesion suspicious for aneurysm. There are no major intracranial branch occlusi ons. The dural venous sinuses appear patent. IMPRESSION: Normal study. Electronically signed by: Clayton Duarte M.D. 02/07/2019 6:40 AM
--- NOTE | 2019-02-07 07:20 | CT Scan Report ---
NECK CTA HISTORY: stroke like symptoms TECHNIQUE: Multiaxial CT images of the neck were performed following the intravenous administration o f contrast to evaluate the major cervical vessels. Maximum intensity projection images were also obta ined. All measurements were calculated based on NASCET criteria. A dose lowering technique was utili zed adhering to the principles of ALARA. COMPARISON STUDY: Neck CTA 11/09/2018. FINDINGS: The aortic arch and proximal great vessels are widely patent. There is no significant sten osis, occlusion, or dissection identified within the bilateral common carotid, internal carotid, or v ertebral arteries. Mild calcified plaque within the bilateral carotid bifurcations without significan t stenosis. A 1.8 cm left thyroid nodule. Stable 4 mm nodules within the left upper lobe and intersti tial thickening within the right upper lobe. IMPRESSION: No significant stenosis, occlusion, or dissection identified within the carotid or vertebral arteries . A 1.8 cm left thyroid nodule. Nonemergent thyroid ultrasound follow-up recommended. Electronically signed by: Adelfo Sanchez M.D. 02/07/2019 7:18 AM
[2019-02-07] MEDS: INSULIN ASPART 100 UNITS/ML 3 ML PEN SC SCH ×4 (07:43→21:30)
--- NOTE | 2019-02-07 07:55 | Critical Care Progress Note ---
Date of Service February 07, 2019 Assessment & Plan (1) CVA (cerebral vascular accident): Reason Critically Ill: 73-year-old female admitted for CVA status post TPA 51. Admission 10/2018 for TIA with negative MRI. Neuro - CVA s/P TPA administration 5102/07/2019 -NIHS scale variable on admission went to 7, now 2-4 for aphasia (expressive) -CTA head and neck, no acute findings on preliminary reading -Follow-up MRI head -Follow-up bubble study -Follow-up lipid panel and hemoglobin A1c -TPA day 2 protocol 24 hours -Follow-up head CT at 24 hours - if no bleed, OK to transfer to floor with telemetry. -Frequent neuro checks -Monitor on telemetry -PT/OT and speech evaluations. Cardiac - HTNwe will continue lisinopril and MTP when appropriate -We will use IV antihypertensives for now, with goal systolic less than 180 Respiratory - COPDpatient currently maintaining sats on 2 L nasal cannula -Continue DuoNeb every 4 hours as needed - Continuous monitoring oxygen saturation - CXR with elevation of R diaphragm. Consider outpatient PFTs if not done previously. Sniff test may be considered. GI - N.p.o. for now pending swallow Continue famotidine RENAL/LYTES - Hypomagnesemiareplete as necessary and monitor routine with BMPs - Strict I's and O's ENDO - Diabetes type 2follow-up hemoglobin A1c -ICU hyperglycemic protocol -We will start insulin aspart sliding scale HEME - Mild leukocytosis this AM. no fevers. no signs of infection. Trend for now. ID - No indication for infectious process at this time LINES/IV ACCESS - Peripheral IVs DVT PROPHYLAXIS - SCDs, holding anticoagulation following TPA administered Observe in ICU today - follow up CT at [place] - if no bleed, can transfer to floor. Will sign off when leaves ICU. (2) TIA (transient ischemic attack): (3) Dizziness: Subjective No acute events overnight. No evidence of bleeding. Neurological symptoms appear to have resolved. Hemodynamic stable. Review of Systems Review of Systems: Unchanged from prior Physical Exam Constitutional: WD/WN, vitals as above Neck: trachea midline, no thyromegaly Respiratory: normal respiratory effort, lungs clear to auscultation Cardiovascular: RRR, no murmur, no edema Gastrointestinal (Abdomen): normal bowel sounds, soft, nontender, no hepatosplenomegaly Musculoskeletal: Extremities: extremities normal to inspection Skin: no rashes, warm and dry Neurologic: Nonfocal exam Lymphatic: no cervical lymphadenopathy Results & Data Vital Signs (Past 12 Hours) Vital Signs Temp Pulse Pulse Resp BP BP Pulse Ox 02/07/19 07:35 103 H 02/07/19 07:30 101 H 126/70 91 02/07/19 07:00 37.3 C 99 H 16 143/75 H 93 02/07/19 06:30 105 H 20 143/74 H 96 02/07/19 06:00 106 H 16 140/62 96 02/07/19 05:30 101 H 12 127/75 95 02/07/19 05:00 103 H 18 141/78 H 92 02/07/19 04:30 101 H 12 151/86 H 92 02/07/19 04:00 36.7 C 96 H 18 146/78 H 93 02/07/19 03:31 97 H 18 168/103 H 94 02/07/19 03:00 97 H 18 160/97 H 97 02/07/19 02:53 96 H 27 H 156/81 H 97 02/07/19 02:46 96 H 18 164/108 H 99 02/07/19 02:37 96 H 20 134/96 100 02/07/19 02:30 94 H 23 163/95 H 97 02/07/19 02:22 92 H 15 159/95 H 98 02/07/19 02:16 95 H 23 178/117 H 96 02/07/19 02:15 94 H 27 H 93 02/07/19 02:00 95 H 19 96 02/07/19 01:57 97 H 18 97 02/07/19 01:54 36.6 C 96 H 16 179/112 H 97 02/07/19 01:37 94 H 92 H 20 164/89 H 151/97 H 96 02/07/19 01:22 93 H 18 160/110 H 96 02/07/19 01:07 93 H 18 175/101 H 98 02/07/19 01:01 91 H 25 H 175/101 H 97 02/07/19 00:51 94 H 16 142/92 H 97 02/07/19 00:48 94 H 25 H 193/119 H 89 L 02/07/19 00:41 94 H 25 H 189/109 H 95 02/07/19 00:38 96 H 23 176/113 H 95 02/07/19 00:36 98 H 18 149/128 H 97 02/07/19 00:31 96 H 25 H 128/100 02/07/19 00:10 97 H 18 171/96 H 92 02/07/19 00:00 102 H 21 171/96 H 02/06/19 23:58 101 H 21 171/94 H 91 02/06/19 23:31 92 H 21 176/83 H 91 02/06/19 23:24 90 20 143/117 H 92 02/06/19 23:10 94 H 20 194/91 H 96 02/06/19 23:00 98 H 17 100 02/06/19 22:54 86 22 190/105 H 93 02/06/19 22:33 93 H 19 02/06/19 22:32 96 H 22 197/120 H 97 02/06/19 22:30 94 H 20 02/06/19 22:01 87 18 02/06/19 22:00 82 17 144/69 H 02/06/19 21:31 88 19 97 02/06/19 21:30 86 21 150/111 H 95 02/06/19 21:01 87 23 92 02/06/19 21:00 86 24 150/90 H 94 02/06/19 20:46 87 19 94 02/06/19 20:45 80 22 137/83 95 02/06/19 20:44 85 20 02/06/19 20:00 85 19 02/06/19 19:57 36.8 C 90 22 149/108 H 97 02/06/19 19:54 89 19 02/06/19 19:51 90 20 149/108 H Laboratory Results 02/06/19 19:52 02/06/19 19:52 Diagnostic Findings Films independently reviewed CT head/brain wo con CLINICAL HISTORY: Strokelike symptoms NEW SYMPTOMS SINCE PRIOR STUDY COMPARISON STUDY: 02/06/2019 TECHNIQUE: Axial CT of the brain is performed from the vertex to the skull base. IV contrast was not administered for this examination. A dose lowering technique was utilized adhering to the principles of ALARA. CT DOSE: FINDINGS: No intra or extra-axial mass lesions are visualized. There is no CT evidence of acute cortical infarction. There is no evidence of midline shift. There is no acute hemorrhage. No calvarial fractures are visualized. There are mild white matter hypodensities likely on a small vessel basis. There is no evidence of pathologic ventricular dilatation. There is no evidence of acute sinusitis IMPRESSION: No acute intracranial findings NECK CTA HISTORY: stroke like symptoms TECHNIQUE: Multiaxial CT images of the neck were performed following the intravenous administration of contrast to evaluate the major cervical vessels. Maximum intensity projection images were also obtained. All measurements were calculated based on NASCET criteria. A dose lowering technique was utilized adhering to the principles of ALARA. COMPARISON STUDY: Neck CTA 11/09/2018. FINDINGS: The aortic arch and proximal great vessels are widely patent. There is no significant stenosis, occlusion, or dissection identified within the bilateral common carotid, internal carotid, or vertebral arteries. Mild calcified plaque within the bilateral carotid bifurcations without significant stenosis. A 1.8 cm left thyroid nodule. Stable 4 mm nodules within the left upper lobe and interstitial thickening within the right upper lobe. IMPRESSION: No significant stenosis, occlusion, or dissection identified within the carotid or vertebral arteries. A 1.8 cm left thyroid nodule. Nonemergent thyroid ultrasound follow-up recommended. Coding Level of Care Code 91453 Subseq Hosp Care Lvl 3 Diagnoses CVA (cerebral vascular accident) I63.9 TIA (transient ischemic attack) G45.9 Dizziness R42 Time Spent (min) 38
[2019-02-07 09:29] LABS: Appearance Urine Clear (Clear); Bilirubin Urine Negative (Negative); Blood Urine Negative (Negative); Color Urine Yellow; Glucose Urine UA 1+ (Negative); Ketones Urine 1+ (Negative); Leukocyte Esterase Urine Negative (Negative); Nitrite Urine Negative (Negative); Protein Urine Negative (Negative); Specific Gravity Urine > 1.045 (1.000-1.030); Urobilinogen Urine Negative (Negative)
[2019-02-07 09:53] LABS: Amphetamines+Metham, Urine Neg (Neg); Barbiturates, Urine Neg (Neg); Benzodiazepine, Urine Neg (Neg); Cocaine, Urine Neg (Neg); MDMA (Ecstacy), Urine Neg (Neg); Methadone, Urine Neg (Neg); Opiate, Urine Pos (Neg); Phencyclidine, Urine Neg (Neg)
[2019-02-07] MEDS: ACETAMINOPHEN 325 MG TAB PO PRN ×2 (09:57→15:19)
[2019-02-07] MEDS: FAMOTIDINE 20 MG in SYRINGE 3 ML IV SCH ×2 (09:57→21:34)
--- NOTE | 2019-02-07 09:59 | Neurology Consultation ---
Date of Consultation February 07, 2019 Assessment & Plan (1) CVA (cerebral vascular accident): This patient's presentation and current examination findings are suggestive of a left MCA territory stroke. She continues to exhibit elements of expressive aphasia with word substitutions and paraphasic errors. She seems to have some comprehension difficulty as well, especially with multistep commands, which may imply a posterior (receptive) stroke localization as well. She notably does not have an associated right hemiparesis. A stroke mimic such as migraine is also possible. Patient will need a brain MRI. Follow-up with results of echocardiogram. Would consider obtaining a transeso phageal echo as well. Would also consider cardiology assessment given history of supraventricular tachycardia. Patient was evaluated by Dr. Mon this past November for this issue. Would also consider a 30-day event monitor to exclude atrial fibrillation. It is concerning that this most recent event occurred while on Plavix. Would consider anticoagulation if an appropriate indication is identified. I will make further recommendations pending completion of the brain MRI. Current blood pressure appropriate. Avoid aggressive treatment of hypertension to avoid hypoperfusion injury. Smoking cessation needs to be stressed. History of Present Illness Reason for Consultation: stroke Requesting Physician: Nehemias Knutson MD Attending Physician: Vishnu Guzman MD History of Present Illness The patient is a 73-year-old female with a chief complaint of blurry vision to the right and associated word finding difficulty that began last night at around 5:30 PM. She was apparently driving home from dinner by herself around the time of symptom onset and became confused. Her had subsequently called her and then contacted 911. Upon arrival the patient was exhibiting signs of expressive aphasia and was complaining of vision difficulty to the right. He was also complaining of an associated frontal headache. Her vision disturbance has resolved although her speech difficulty and headache have persisted. She had a very similar presentation to the hospital this past October and was diagnosed with a TIA localizing to the left cerebral hemisphere at that time. She has several cardiovascular risk factors including type 2 diabetes mellitus, hypertension, and cigarette smoking. History also notable for SVT, COPD, and anxiety disorder. She has been taking Lipitor and Plavix. She continues to smoke cigarettes. Given the above presentation, a tele-stroke consultation was obtained during her assessment in the emergency department. Given concern for possible left MCA territory thrombus TPA was administered. She does not have an associated right hemiparesis although continues to experience some difficulty with expressive speech and a low-grade frontal headache. Additional details as below. Allergies Allergy/AdvReac Type Severity Reaction Status Date / Time amoxicillin [From Augmentin] Allergy Severe Anaphylaxis Verified 01/25/19 15:20 cephalexin Allergy Severe Hives Verified 01/25/19 15:20 clavulanic acid Allergy Severe Anaphylaxis Verified 01/25/19 15:20 [From Augmentin] Home Medications Home Medications Medication Instructions Recorded Confirmed Type albuterol sulfate 90 mcg/actuation 1 - 2 puff INHALATION QID PRN #3 gm 09/30/18 02/06/19 History aerosol inhaler cholecalciferol (vitamin D3) 1,000 1,000 units PO DAILY cap 11/08/18 02/06/19 History unit capsule ipratropium-albuterol 0.5 mg-3 3 ml INHALATION Q4H PRN #1 ml 11/08/18 02/06/19 History mg(2.5 mg base)/3 mL nebulization soln lisinopril 5 mg tablet 5 mg PO PM #1 tab 11/08/18 02/06/19 History metformin 1,000 mg tablet 1,000 mg PO BID #60 tab 11/08/18 02/06/19 History pioglitazone 15 mg tablet 15 mg PO DAILY #30 tab 11/08/18 02/06/19 History clopidogrel 75 mg tablet 75 mg PO DAILY #90 tab 11/11/18 02/06/19 Rx ranitidine HCl 150 mg tablet 150 mg PO BID #60 tab 11/11/18 02/06/19 Rx insulin detemir U-100 100 unit/mL 9 units SUBCUT HS #15 ml 11/21/18 02/06/19 Rx (3 mL) subcutaneous pen venlafaxine 150 mg 150 mg PO DAILY #90 cap 12/16/18 02/06/19 Rx capsule,extended release 24 hr acetaminophen [Tylenol Extra 1,000 mg PO Q6H PRN 12/17/18 02/06/19 History Strength] semaglutide 0.25 mg or 0.5 mg (2 0.25 mg SQ WEEKLY ml 01/07/19 02/06/19 History mg/1.5 mL) subcutaneous pen injector atorvastatin 40 mg tablet 40 mg PO HS #90 tab 01/16/19 02/06/19 Rx metoprolol succinate 50 mg 50 mg PO QAM 90 Days #90 tab 01/17/19 02/06/19 Rx tablet,extended release 24 hr clonazepam 0.5 mg tablet 0.5 mg PO HS #30 tab 02/03/19 02/06/19 Rx biotin 10,000 mcg PO DAILY 02/06/19 02/06/19 History Patient History Medical History Hypertension SVT (supraventricular tachycardia) Type 2 diabetes mellitus Surgical History History of colonoscopy History of dilation and curettage History of tonsillectomy History of tooth extraction Family History Mother Myocardial infarction Grandmother Breast cancer Kidney disease Hypertension Aunt Alzheimer disease Social History Preferred Language: Hungarian Communication Ability: Effective [employer]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: No Beliefs That Will Affect Care: None marital status: Current Living Situation: Spouse current occupational status: retired Feels Safe at Home: Yes Smoking Status: Current every day smoker Tobacco Type: cigarettes ; Cigarettes Per Day: 20 ; Second Hand Exposure: Yes ; Hx Alcohol Use: Yes Hx Substance Use: No Dental Care, Regularly: No Review of Systems Constitutional: no fever, no chills and no fatigue Eyes: as per Subjective / HPI and + blind spots; no diplopia and no eye pain Ear, Nose, Mouth, Throat: no hearing loss Respiratory: no cough and no dyspnea Cardiovascular: + palpitations; no chest pain Gastrointestinal: no nausea and no vomiting Genitourinary: no urinary incontinence Musculoskeletal: no back pain, no neck pain and no myalgia Integumentary: no rash and no lesions Neurologic: as per Subjective / HPI, + headache(s), + abnormal speech and + confusion; no localized weakness and no loss of sensation Psychiatric: no depression and no anxiety Hematologic / Lymphatic: no easy bleeding and no easy bruising Physical Exam Physical Exam: The patient is a well-developed, well-nourished elderly female. She is alert and fully oriented. Recent and remote memory intact. Attention and concentration normal. Patient exhibits moderate difficulty with object naming and makes a few word substitutions and paraphasic errors with naming objects as well as with reading text. She exhibited some difficulty following multistep commands as well but otherwise seem to have intact language comprehension. Fund of knowledge seems to be normal and age-appropriate. Visual garcia full to confrontation. Visual acuity normal. Pupils equal round reactive to light and accommodation. Eye movements normal. There is no ptosis, nystagmus, or ophthalmoplegia. Facial sensation intact. There is no facial droop or weakness. Hearing intact. Palate elevates to midline. Shoulder shrug intact. Tongue protrudes to midline. Sensation intact to all modalities in all 4 limbs. Deep tendon reflexes are intact and symmetrical for the arms and legs bilaterally. Plantar responses downgoing bilaterally. There is no dysdiadochokinesia or dysmetria [id number] or [id number]-ro-pods bilaterally. Ophthalmoscopic examination reveals normal-appearing optic disks and posterior segments. No papilledema or hemorrhages. Carotid pulses normal bilaterally, no bruits to auscultation. Gait and station not tested due to safety concerns. Patient exhibits normal muscle strength and tone for all 4 limbs proximally and distally. There is no hemiparesis. No pronator drift. No atrophy. No abnormal movements observed. Results & Data Vital Signs (Past 12 Hours) Vital Signs Temp Pulse Pulse Resp BP BP Pulse Ox 02/07/19 09:00 88 18 135/81 94 02/07/19 08:30 100 H 16 132/55 L 93 02/07/19 08:00 103 H 18 125/70 94 02/07/19 07:35 103 H 02/07/19 07:30 101 H 126/70 91 02/07/19 07:00 37.3 C 99 H 16 143/75 H 93 02/07/19 06:30 105 H 20 143/74 H 96 02/07/19 06:00 106 H 16 140/62 96 02/07/19 05:30 101 H 12 127/75 95 02/07/19 05:00 103 H 18 141/78 H 92 02/07/19 04:30 101 H 12 151/86 H 92 02/07/19 04:00 36.7 C 96 H 18 146/78 H 93 02/07/19 03:31 97 H 18 168/103 H 94 02/07/19 03:00 97 H 18 160/97 H 97 02/07/19 02:53 96 H 27 H 156/81 H 97 02/07/19 02:46 96 H 18 164/108 H 99 02/07/19 02:37 96 H 20 134/96 100 02/07/19 02:30 94 H 23 163/95 H 97 02/07/19 02:22 92 H 15 159/95 H 98 02/07/19 02:16 95 H 23 178/117 H 96 02/07/19 02:15 94 H 27 H 93 02/07/19 02:00 95 H 19 96 02/07/19 01:57 97 H 18 97 02/07/19 01:54 36.6 C 96 H 16 179/112 H 97 02/07/19 01:37 94 H 92 H 20 164/89 H 151/97 H 96 02/07/19 01:22 93 H 18 160/110 H 96 02/07/19 01:07 93 H 18 175/101 H 98 02/07/19 01:01 91 H 25 H 175/101 H 97 02/07/19 00:51 94 H 16 142/92 H 97 02/07/19 00:48 94 H 25 H 193/119 H 89 L 02/07/19 00:41 94 H 25 H 189/109 H 95 02/07/19 00:38 96 H 23 176/113 H 95 02/07/19 00:36 98 H 18 149/128 H 97 02/07/19 00:31 96 H 25 H 128/100 02/07/19 00:10 97 H 18 171/96 H 92 02/07/19 00:00 102 H 21 171/96 H 02/06/19 23:58 101 H 21 171/94 H 91 02/06/19 23:31 92 H 21 176/83 H 91 02/06/19 23:24 90 20 143/117 H 92 02/06/19 23:10 94 H 20 194/91 H 96 02/06/19 23:00 98 H 17 100 02/06/19 22:54 86 22 190/105 H 93 02/06/19 22:33 93 H 19 02/06/19 22:32 96 H 22 197/120 H 97 02/06/19 22:30 94 H 20 02/06/19 22:01 87 18 02/06/19 22:00 82 17 144/69 H 02/06/19 21:31 88 19 97 02/06/19 21:30 86 21 150/111 H 95 Laboratory Results WBC 12.43, hemoglobin 16.4, hematocrit 47.3, platelet count 230, sodium 137, potassium 3.9, BUN 16, creatinine 0.89, glucose 129 Lipid panel from this past October: Triglycerides 99, cholesterol 137, LDL 71, VLDL 20, HDL [address] of the head completed yesterday negative for hemorrhage or acute process. There is evidence of chronic small vessel ischemic change. I reviewed the images as well as the radiologist interpretation of this test. CT angiography of the head and neck negative for significant stenosis, vascular occlusion, aneurysm, or significant vascular lesion. A repeat CT of the head was negative for hemorrhage or acute process. I reviewed the images as well as the radiologist interpretation of this test. A CT angiogram of the neck completed this past October suggested a 50% narrowing of the carotid bifurcations and proximal internal carotid arteries bilaterally. A brain MRI completed this october was negative for acute process and revealed chronic microvascular ischemic change. I reviewed the images as well as the radiologist interpretation of this test. Electrocardiogram completed yesterday revealed a normal sinus rhythm, 85 bpm. A transthoracic echocardiogram completed this past October revealed mild to moderate concentric left ventricular hypertrophy. No right to left atrial shunt. PG Care Time/CCT Total # of Minutes Spent Total Time Spent with Patient: Total time spent is greater than 50% in coordination of care (as documented) at patient's floor/unit and/or counseling patient:
--- NOTE | 2019-02-07 13:55 | History & Physical Bridge Note ---
Date of Service February 07, 2019 History & Physical Bridge Note No major changes today. Patient seen and examined this morning. Will monitor vitals and exam in the ICU today. If repeat CT in the morning is stable, can transfer out tomorrow.
--- NOTE | 2019-02-07 15:08 | Magnetic Resonance Report ---
MR brain wo con HISTORY: 73 years-old Female CVA acute strokelike symptoms with headache COMPARISON: MRI brain 11/09/2018 TECHNIQUE: Multiplanar multisequence MRI of the brain was obtained without the use of IV contrast. FINDINGS: Large field of view staff nurse localizer images demonstrate no gross extracranial abnormality. There is no restricted diffusion to suggest acute or subacute infarction. Midline structures including the corpu s callosum, brainstem, optic chiasm and pituitary gland appear unremarkable the sagittal T1 series. 2 mm pineal gland cyst. No cerebellar tonsillar herniation. Degenerative changes are noted about the i cammei cervical spine. No acute intracranial hemorrhage, midline shift, abnormal extra-axial collectio n, hydrocephalus or intracranial mass. Moderate patchy T2/FLAIR hyperintensities about the white cuate er are suggestive of chronic microvascular ischemic disease. Major flow voids at the level of the skull base appear patent. Mastoid air cells are clear. Minimal m ucosal thickening of the nasal turbinates and ethmoid air cells. Prior bilateral cataract repair. The skull, soft tissues and orbits are unremarkable. IMPRESSION: No acute intracranial abnormality, specifically there is no evidence of acute or subacute infarction. The above report was generated using voice recognition software. It may contain grammatical, syntax o r spelling errors. Electronically signed by: Thaddeus Batres M.D. 02/07/2019 3:06 PM
[2019-02-07] MEDS ORDERED: IBUPROFEN 200 MG TAB PO STA (16:45)
[2019-02-07] MEDS ORDERED: ATORVASTATIN 40 MG TAB PO SCH (21:00)
[2019-02-07] MEDS ORDERED: NORMOSOL-R 1,000 ML IV ONE (21:43)
[2019-02-08 01:31] LABS: Basophils # (auto) 0.04 K/uL (0-0.2); Basophils % (auto) 0.4 %; Eosinophils # (auto) 0.11 K/uL (0-0.5); Eosinophils % (auto) 1.2 %; Hematocrit (blood only) 40.7 % (37-47); Hemoglobin 13.7 g/dL (12.0-16.0); Immature Granulocytes # (auto) 0.03 K/uL (0.00-0.02); Immature Granulocytes % (auto) 0.3 %; Lymphocytes # (auto) 2.69 K/uL (1.2-3.4); Lymphocytes % (auto) 29.9 %; Mean Corpuscular Hemoglobin 29.1 pg (25-34); Mean Corpuscular Hgb Conc 33.7 g/dL (32-36); Mean Corpuscular Volume 86.4 fL (80-100); Mean Platelet Volume 10.7 fL (7.4-10.4); Monocytes # (auto) 0.65 K/uL (0.11-0.59); Monocytes % (auto) 7.2 %; Neutrophils # (auto) 5.49 K/uL (1.4-6.5); Platelet Count 182 K/uL (130-400); RDW Coefficient of Variation 13.7 % (11.5-14.5); RDW Standard Deviation 43.5 fL (36.4-46.3); Red Blood Count 4.71 M/uL (4.2-5.4); White Blood Count 9.01 K/uL (4.8-10.8)
[2019-02-08] MEDS: ACETAMINOPHEN 325 MG TAB PO PRN ×2 (01:40→07:58)
[2019-02-08 01:44] LABS: Partial Thromboplastin Ratio 0.9; Partial Thromboplastin Time 25.1 Seconds (21.0-31.0); Prothrombin Time 10.4 Seconds (9.0-12.0)
[2019-02-08 01:48] LABS: Albumin Level 3.2 gm/dl (3.4-5.0); BUN Creatinine Ratio 18.9 (10-20); Calcium 9.3 mg/dl (8.5-10.1); Creatinine Clr Calc Pharmacy 86.7 ml/min; Est GFR (African American) 100.3; Est GFR (Non-African American) 86.6; Magnesium 1.8 mg/dl (1.8-2.4); Potassium 3.7 mmol/L (3.5-5.1)
[2019-02-08 01:57] LABS: Bilirubin Direct 0.1 mg/dl (0-0.2); Bilirubin,Total 0.5 mg/dl (0.2-1); Phosphorus 3.6 mg/dl (2.5-4.9); Total Protein 6.3 gm/dl (6.4-8.2)
[2019-02-08 04:54] LABS: Basophils # (auto) 0.02 K/uL (0-0.2); Basophils % (auto) 0.2 %; Eosinophils # (auto) 0.13 K/uL (0-0.5); Eosinophils % (auto) 1.6 %; Hematocrit (blood only) 42.1 % (37-47); Immature Granulocytes # (auto) 0.01 K/uL (0.00-0.02); Immature Granulocytes % (auto) 0.1 %; Lymphocytes # (auto) 2.78 K/uL (1.2-3.4); Mean Corpuscular Hemoglobin 28.9 pg (25-34); Mean Corpuscular Hgb Conc 33.3 g/dL (32-36); Mean Platelet Volume 10.8 fL (7.4-10.4); Monocytes # (auto) 0.62 K/uL (0.11-0.59); Monocytes % (auto) 7.6 %; Neutrophils # (auto) 4.62 K/uL (1.4-6.5); Neutrophils % (auto) 56.5 %; Platelet Count 179 K/uL (130-400); RDW Coefficient of Variation 13.9 % (11.5-14.5); Red Blood Count 4.84 M/uL (4.2-5.4); White Blood Count 8.18 K/uL (4.8-10.8)
[2019-02-08 05:09] LABS: Partial Thromboplastin Ratio 0.9; Partial Thromboplastin Time 25.7 Seconds (21.0-31.0); Prothrombin Time 10.5 Seconds (9.0-12.0)
[2019-02-08 05:12] LABS: Albumin Level 3.3 gm/dl (3.4-5.0); BUN Creatinine Ratio 19.3 (10-20); Creatinine Clr Calc Pharmacy 94.8 ml/min; Est GFR (African American) 103.3; Est GFR (Non-African American) 89.2; Magnesium 1.8 mg/dl (1.8-2.4); Potassium 3.8 mmol/L (3.5-5.1)
[2019-02-08 05:15] LABS: Bilirubin,Total 0.5 mg/dl (0.2-1); Phosphorus 3.5 mg/dl (2.5-4.9); Total Protein 6.3 gm/dl (6.4-8.2)
[2019-02-08 06:27] LABS: Estimated Average Glucose 137 mg/dl; Hemoglobin A1C 6.4 % (4.5-5.6)
--- NOTE | 2019-02-08 06:29 | CT Scan Report ---
CT OF THE HEAD WITHOUT CONTRAST CLINICAL HISTORY: post 24 hr TPA COMPARISON STUDY: Head CT and CTA of the head February 06, 2019. MRI of the brain February 07, 2019. CT DOSE: 614.27 mGy.cm TECHNIQUE: Helical axial images of the head were obtained without IV contrast. Automated exposure con trol was utilized for the study. A dose lowering technique was utilized adhering to the principles o f ALARA. FINDINGS: No acute intracranial hemorrhage, midline shift or mass effect is present. The ventricular system is unremarkable. The basilar cisterns are patent. No extra-axial collections are present. Ther e are no findings to suggest acute dural sinus thrombosis or acute territorial infarct. No significan t calvarial abnormalities are present. Visualized portions of the sinuses and mastoid air cells are c lear. Mild white matter hypodensity suggests small vessel disease. IMPRESSION: No acute intracranial findings. Electronically signed by: Julian Sparks M.D. 02/08/2019 6:28 AM
[2019-02-08 06:31] LABS: Bilirubin Direct 0.2 mg/dl (0-0.2)
[2019-02-08] MEDS: INSULIN ASPART 100 UNITS/ML 3 ML PEN SC SCH ×2 (07:55→12:07)
--- NOTE | 2019-02-08 08:45 | Neurology Progress Note ---
Date of Service February 08, 2019 Assessment & Plan (1) TIA (transient ischemic attack): Given this patient's complete symptomatic resolution and negative brain MRI I would characterize her presentation as a TIA localizing to the left middle cerebral artery territory. It is notable that she had a very similar presentation this past October. She does have multiple cardiovascular risk factors. Occult atrial fibrillation may not be completely excluded and an outpatient 30-day cardiac event monitor should be considered. She has been evaluated by cardiology recently for supraventricular tachycardia as well. No compelling evidence for PFO with echocardiography. Given that her MRI did not reveal any evidence of acute or subacute stroke, I would hold off on pursuing transesophageal echocardiography at this time. She should continue with clopidogrel and atorvastatin. Smoking cessation needs to be stressed. Alternative diagnoses for this patient including stroke mimics such as complicated migraine and anxiety/panic attack have been considered in this patient as well. However, these diagnoses are considered less likely. Nonetheless, if she were to continue to have similar presentations with unremarkable imaging and associated headache I may consider a trial of topiramate for migraine prevention. I do not have any further immediate recommendations for this patient. She does not appear to have any need for inpatient rehabilitation. Please contact me if I may be of further assistance. Subjective Follow-up for strokelike episode The patient is a 73-year-old female who presented with difficulty with expressive speech, vision loss/disturbance to the right, and frontal headache. She had a very similar presentation in October worrisome for TIA. She has multiple cardiovascular risk factors including diabetes mellitus, hypertension, cigarette smoking, and dyslipidemia. Her most recent presentation was worrisome for recurrent left MCA territory thromboembolic event/stroke. A tele-stroke consultation was obtained during her initial assessment in the emergency department and she was deemed appropriate for administration of TPA. She had persistent difficulty with expressive and perhaps some receptive speech/co gnitive processing during my assessment of her yesterday morning. She did not have an associated right hemiparesis. A follow-up brain MRI was obtained yesterday and was negative for acute or subacute stroke. No significant change from the previous MRI done this past October. There is evidence of chronic microvascular ischemic disease. No other significant pathology. I reviewed the images as well as the radiologist interpretation of this test. A repeat transthoracic echocardiogram has been completed as well. No cardioembolic source identified. No evidence for PFO. This morning, the patient indicates that she has been feeling fine. She reports complete resolution of her headache and speech difficulty. No problems with language comprehension or cognition in general. Case discussed with patient's nurse at bedside. She has been doing rather well. No new or additional concerns at this point in time. Patient also had a follow-up CT of the head completed which was negative for hemorrhage or acute process. I reviewed the images and radiologist interpretation of this test as well. Her blood pressure is moderately elevated this morning, 158/86, but appropriate in the context of her current admission for stroke/TIA. Glucose this morning 147. Electrocardiogram completed this morning revealed a normal sinus rhythm, 95 bpm. Review of Systems Eyes: no blind spots and no diplopia Cardiovascular: no chest pain and no palpitations Neurologic: as per Subjective / HPI; no localized weakness, no loss of sensation, no tremor(s), no seizure-like activity, no headache(s), no abnormal speech, no confusion and no memory loss Physical Exam Physical Exam: The patient is a well-developed elderly female. She is lying comfortably in bed in no acute distress. She is alert and fully oriented. Recent and remote memory intact. Attention and concentration normal. Patient able to follow multistep commands without difficulty. She correctly identifies fingers and perform simple calculations without difficulty. Patient exhibits a normal spontaneous speech pattern. She is able to identify objects, read text, and repeat phrases without difficulty. Visual garcia full to confrontation. Visual acuity normal. Pupils equal round reactive to light and accommodation. Eye movements normal. There is no nystagmus, ptosis, or ophthalmoplegia. Facial sensation intact. There is no facial droop or weakness. Hearing intact. Palate elevates midline. Shoulder shrug intact. Tongue protrudes to midline. Motor examination reveals normal strength for all 4 limbs proximally and distally. There is no hemiparesis. There is no pronator drift. There is no effects with arm roll. Facility normal with fine finger movements. Results & Data Vital Signs (Past 12 Hours) Vital Signs Temp Pulse Resp BP Pulse Ox 02/08/19 08:00 95 H 22 158/86 H 90 02/08/19 07:00 36.8 C 91 H 17 156/87 H 94 02/08/19 06:40 95 H 02/08/19 06:01 88 16 176/96 H 94 02/08/19 05:00 102 H 21 155/90 H 93 02/08/19 04:16 37 C 90 20 174/80 H 92 02/08/19 03:14 93 H 19 151/80 H 92 02/08/19 02:00 98 H 19 127/92 93 02/08/19 01:37 103 H 17 130/81 92 02/08/19 01:00 36.6 C 100 H 20 176/77 H 91 02/08/19 00:04 36.6 C 108 H 17 169/80 H 95 02/07/19 23:00 103 H 18 149/82 H 93 02/07/19 22:00 107 H 19 101/84 91 02/07/19 21:00 110 H 20 151/68 H 94 02/07/19 20:30 103 H 21 92 02/07/19 20:26 107 H 19 166/88 H 95
[2019-02-08] MEDS ORDERED: FAMOTIDINE 20 MG TAB PO SCH (09:00)
[2019-02-08] MEDS ORDERED: CLOPIDOGREL BISULFATE 75 MG TAB PO SCH (09:00)
--- NOTE | 2019-02-08 09:04 | Critical Care Progress Note ---
Date of Service February 08, 2019 Assessment & Plan (1) CVA (cerebral vascular accident): Reason Critically Ill: 73-year-old female admitted for CVA status post TPA 0052. Admission 10/2018 for TIA with negative MRI. Impression: 73-year-old female admitted with strokelike symptoms/TIA. She received TPA in the emergency room. Recommendations: 1. Status post TPA administration: No evidence of bleeding. Okay to transfer the floor or discharge per hospitalist. 2. TIA: Management per hospitalist and neurology. 3. The patient is eligible to be transferred to the floor O potentially dismissed from the hospital. Defer to attending hospitalist. Will sign off. Feel free to contact us with additional questions or concerns. (2) TIA (transient ischemic attack): (3) Dizziness: Review of Systems Review of Systems: unchanged Physical Exam Constitutional: WD/WN, vitals as above Neck: trachea midline, no thyromegaly Respiratory: normal respiratory effort, lungs clear to auscultation Cardiovascular: RRR, no murmur, no edema Gastrointestinal (Abdomen): normal bowel sounds, soft, nontender, no hepatosplenomegaly Musculoskeletal: Extremities: extremities normal to inspection Skin: no rashes, warm and dry Neurologic: Nonfocal exam Lymphatic: no cervical lymphadenopathy Results & Data Vital Signs (Past 12 Hours) Vital Signs Temp Pulse Resp BP Pulse Ox 02/08/19 08:00 95 H 22 158/86 H 90 02/08/19 07:00 36.8 C 91 H 17 156/87 H 94 02/08/19 06:40 95 H 02/08/19 06:01 88 16 176/96 H 94 02/08/19 05:00 102 H 21 155/90 H 93 02/08/19 04:16 37 C 90 20 174/80 H 92 02/08/19 03:14 93 H 19 151/80 H 92 02/08/19 02:00 98 H 19 127/92 93 02/08/19 01:37 103 H 17 130/81 92 02/08/19 01:00 36.6 C 100 H 20 176/77 H 91 02/08/19 00:04 36.6 C 108 H 17 169/80 H 95 02/07/19 23:00 103 H 18 149/82 H 93 02/07/19 22:00 107 H 19 101/84 91 Laboratory Results 02/08/19 04:39 02/08/19 04:39 Diagnostic Findings MR brain wo con HISTORY: 73 years-old Female CVA acute strokelike symptoms with headache COMPARISON: MRI brain 11/09/2018 TECHNIQUE: Multiplanar multisequence MRI of the brain was obtained without the use of IV contrast. FINDINGS: Large field of view band booker localizer images demonstrate no gross extracranial abnormality. There is no restricted diffusion to suggest acute or subacute infarction. Midline structures including the corpus callosum, brainstem, optic chiasm and pituitary gland appear unremarkable the sagittal T1 series. 2 mm pineal gland cyst. No cerebellar tonsillar herniation. Degenerative changes are noted about the imaged cervical spine. No acute intracranial hemorrhage, midline shift, abnormal extra-axial collection, hydrocephalus or intracranial mass. Moderate patchy T2/FLAIR hyperintensities about the white matter are suggestive of chronic microvascular ischemic disease. Major flow voids at the level of the skull base appear patent. Mastoid air cells are clear. Minimal mucosal thickening of the nasal turbinates and ethmoid air cells. Prior bilateral cataract repair. The skull, soft tissues and orbits are unremarkable. IMPRESSION: No acute intracranial abnormality, specifically there is no evidence of acute or subacute infarction. Coding Level of Care Code 68153 Subseq Hosp Care Lvl 2 Diagnoses CVA (cerebral vascular accident) I63.9 TIA (transient ischemic attack) G45.9 Dizziness R42
[2019-02-08] MEDS ORDERED: LIDOCAINE HCL 1% 20 ML VIAL ONE (12:41)
[2019-02-08] MEDS ORDERED: STROKE PATIENT DISCHARGE STA (14:33)
--- NOTE | 2019-02-08 14:42 | Pulmonology Progress Note ---
Date of Service February 08, 2019 Results & Data Vital Signs (Past 12 Hours) Vital Signs Temp Pulse Pulse Resp BP BP Pulse Ox 02/08/19 14:00 101 H 18 94 02/08/19 12:00 102 H 125/89 95 02/08/19 11:00 126 H 16 146/95 H 92 02/08/19 10:00 94 H 17 132/73 93 02/08/19 09:00 89 95 H 21 126/65 126/65 93 02/08/19 08:00 95 H 22 158/86 H 90 02/08/19 07:00 36.8 C 91 H 17 156/87 H 94 02/08/19 06:40 95 H 02/08/19 06:01 88 16 176/96 H 94 02/08/19 05:00 102 H 21 155/90 H 93 02/08/19 04:16 37 C 90 20 174/80 H 92 02/08/19 03:14 93 H 19 151/80 H 92 PG Care Time/CCT Total # of Minutes Spent Total Time Spent with Patient: Total time spent is greater than 50% in coordination of care (as documented) at patient's floor/unit and/or counseling patient:
--- NOTE | 2019-02-08 14:55 | Procedure Note ---
Procedure Note Date of Service February 08, 2019 Note The procedure performed: Implantation of patient activated loop recorder Staff visual presentation manager: Obi Mon MD Indication: The patient is a 73-year-old woman with a history of cerebrovascular events. There is some suspicion that she has occult atrial fibrillation and she was advised to undergo implantation of loop recorder for diagnostic purposes Procedure in detail: The patient was informed of the risks benefits and alternatives to the intended procedure. They understood such and wished to proceed. The patient was taken to the electrophysiology suite where the upper chest area was prepped and draped in the usual sterile fashion. An area left lateral to the sternum in the 4th intercostal space was subsequently anesthetized using subcutaneous administration of lidocaine solution. A small incision was made at this site and implantation of the loop recorder was accomplished using a proprietary implantation tool. The small incision was subsequently closed using a single 4 0 Vicryl suture. Steri-Strips and a sterile dressing were then applied. The patient tolerated the procedure well. There were no immediate complications. The device was tested noninvasively prior to conclusion of the procedure. Equipment used: Patient activated loop recorder: [employer]. Model number [id number]. Serial number [id number] Coding
--- NOTE | 2019-02-08 16:52 | Discharge Summary ---
Date of Service February 08, 2019 Admission HPI Per Admitting Provider The patient is a 73-year-old female with a past medical history including COPD, hypertension, diabetes mellitus, GERD, anxiety and depression, hyperlipidemia and tobacco abuse who presents to the emergency department with the above symptoms. During her stay in the emergency department, her symptoms did return, and a stroke alert was called at that time. She underwent repeat CTA of head / neck and repeat CT of head, and was felt by Dr. Coy from stroke neurology at [facility] to be an appropriate candidate for TPA, and TPA was administered. Patient will now be admitted to the ICU for further follow-up. Principal Diagnosis TIA vs. possible complex migraine Discharge Exam Constitutional WD/WN, vitals as above cooperative and comfortable Eyes PERRL, conjunctivae normal, anicteric sclerae ENMT external ear and nose normal, oropharynx normal Neck trachea midline, no thyromegaly Respiratory normal respiratory effort, lungs clear to auscultation Cardiovascular RRR, no murmur, no edema Heart Sounds: normal S1 and normal S2 Vessels: no JVD Extremities: no edema Gastrointestinal (Abdomen) normal bowel sounds, soft, nontender, no hepatosplenomegaly Musculoskeletal no cyanosis or clubbing, extremities motor strength 5/5 Extremities: extremities normal to inspection Skin no rashes, warm and dry Neurologic CN's II-XI intact bilaterally, moves all extremities and + confused Speech / Cognition: + abnormal speech Motor/Sensory: no pronator drift and no sensory deficit Psychiatric Orientation: oriented to person, oriented to place, oriented to time and cooperative Affect: + flat affect Lymphatic no cervical lymphadenopathy Discharge Data Allergies Allergy/AdvReac Type Severity Reaction Status Date / Time amoxicillin [From Augmentin] Allergy Severe Anaphylaxis Verified 01/25/19 15:20 cephalexin Allergy Severe Hives Verified 01/25/19 15:20 clavulanic acid Allergy Severe Anaphylaxis Verified 01/25/19 15:20 [From Augmentin] Consultations 02/06/19 22:29 ED Decision to Admit Stat 02/07/19 01:59 Consult Case Management - Discharge Planning Routine Consult Case Management - Discharge Planning Routine Consult Registration Manager Routine Consult Neurology Routine 02/08/19 12:05 Consult Cardiology Routine Procedures Performed Operation Date: 02/08/19 12:45 Actual Procedures p Implant Cardiac Event Recorder - Gerald Mon MD Ordered Studies 02/06/19 20:09 CT head/brain wo con Stat 02/06/19 22:28 CT angio head w con Urgent CT angio neck with con Urgent 02/06/19 23:37 CT head/brain wo con Urgent 02/07/19 05:47 MR brain wo con Routine 02/08/19 00:55 CT head/brain wo con Urgent 02/08/19 12:44 CL Cath Imgs for PACS use only Routine Hospital Course (1) CVA (cerebral vascular accident): MRI brain on 02/07 did not show CVA. Determined to be a left MCA TIA by neurology. Also possible to be a complex migraine as she sometimes she has a headache with some of these episodes. - On 02/08, she reported having around a 2-3 second episode of aphasia and confusion; however, it resolved so quickly I was not able to appreciate it. Given our present optimization with Plavix and statin, I did not have any change in recs. - Regarding the possibility of an atrial arrhythmia causing embolic phenomenon, she had a loop recorder implanted with Dr. Mon on 02/08 with follow up in 1 week. - As above, continue Plavix and statin. (2) Tobacco abuse: Cessation counseling. (3) Hypomagnesemia: Magnesium is 1.5, given mag sulfate 2 g IV, and will follow-up laboratories. (4) COPD (chronic obstructive pulmonary disease): No major shortness of breath while admitted. - Duonebs PRN (5) Type 2 diabetes mellitus without complications: A1c was 6.4%. - Held all medications while inpatient. - Returned to home dosing on discharge. (6) Essential (primary) hypertension: Good BP while admitted. No changes on discharge. (7) Admitted to intensive care unit: Admitted to ICU post TPA. - Repeat CT head on 02/08 showed no bleeding. Total Time Total Time Spent Total Time Spent (In Minutes): 45 Discharge Plan Discharge Items Patient Disposition: Home - Home Health Services Reason For Visit: CVA, RECEIVED TPA IN ED Discharge Diagnosis: Possible TIA Activity: Resume your previous activity Non-emergency contact: Primary Care Provider, Song Plugger and Neurologist Call non-emergency contact if: you have any medication questions and your symptoms worsen Follow-up/Referrals: Manny Diaz III, MD [Physician] - (Please follow up with Dr. Diaz's office in 1-2 months.) Kael Mustafa, DO [Primary Care Provider] - 02/14/19 9:15 am (Please, follow up with Dr. Kael Mustafa on WednesdayFebruary 14 at 9:15 am. *If you need to change this appointment, call the office at [phone]. A 30 DAY CARDIAC EVENT MONITOR WILL BE MAILED TO YOUR HOME. THE KIT WILL INCLUDE EASY TO FOLLOW INSTRUTIONS. THE RESULTS WILL BE SENT TO DR. KAEL MUSTAFA.) Gerald Mon MD [Physician] - (Please call Dr. Mon's office if they haven't called you by next week.) Diet: Carb Consistent or DM2 and Heart Healthy Addtl Attending Provider Instructions: You were admitted to the hospital for trouble speaking. We were concerned about a TIA (or mini-stroke) and gave you medication to help resolve that. We did not see any evidence of a stroke on our brain MRI. We are not changing your medications at all because you are on a good regimen at present. If the implanted heart recorder has any findings, Dr. Mon will contact you. You will follow up with him in the office. Pending Studies at Discharge: No Stand-Alone Forms: My [facility] [employer], Smoking Cessation Medications and DC Order Prescriptions: Continued Levemir FlexTouch U-100 Insuln 100 unit/mL (3 mL) insulin pen 9 units subcut HS Qty: 15 RF: 1 venlafaxine 150 mg capsule,extended release 24hr 150 mg PO DAILY Qty: 90 RF: 3 Ozempic 0.25 mg or 0.5 mg(2 mg/1.5 mL) pen injector 0.25 mg SQ WEEKLY RF: 0 atorvastatin 40 mg tablet 40 mg PO HS Qty: 90 RF: 0 metoprolol succinate 50 mg tablet extended release 24 hr 50 mg PO QAM 90 Days Qty: 90 RF: 1 clonazepam 0.5 mg tablet 0.5 mg PO HS Qty: 30 RF: 0 clopidogrel 75 mg tablet 75 mg PO DAILY Qty: 90 RF: 3 ranitidine HCl 150 mg tablet 150 mg PO BID Qty: 60 RF: 2 albuterol sulfate 90 mcg/actuation HFA aerosol inhaler 1 - 2 puff inhalation QID PRN (Reason: Shortness Of Breath Or Wheezing) Qty: 3 RF: 0 cholecalciferol (vitamin D3) 1,000 unit capsule 1,000 units PO DAILY RF: 0 ipratropium-albuterol 0.5 mg-3 mg(2.5 mg base)/3 mL solution for nebulization 3 ml inhalation Q4H PRN (Reason: Shortness Of Breath Or Wheezing) Qty: 1 RF: 0 lisinopril 5 mg tablet 5 mg PO PM Qty: 1 RF: 0 metformin 1,000 mg tablet 1,000 mg PO BID Qty: 60 RF: 0 pioglitazone 15 mg tablet 15 mg PO DAILY Qty: 30 RF: 0 biotin 10,000 mcg Capsule 10,000 mcg PO DAILY RF: 0 acetaminophen [Tylenol Extra Strength] 500 mg Tablet 1,000 mg PO Q6H PRN (Reason: Pain) RF: 0 Discharge Orders: Discharge Order (Routine); Ordered 02/08/19 Ordered By: Vishnu Mustafa Admission Data Admit Date/Time: 02/07/19 01:19 Attending Provider: Vishnu Mustafa Admit Provider: Nehemias Knutson Primary Care Provider: Kael Mustafa Other Providers: Pascual Matamoros ; Manny Diaz III ; Vishnu Mustafa ; Gerald Mon Other Interventions: Discharge Summary Assessment (RN) Last Done: 02/08/19 14:41 DC Date/Time DO NOT enter until pt leaves facility: 02/08/19 16:12
[2019-02-09 13:34] LABS: Codeine Urine NEGATIVE NG/ML (CUTOFF=50); Hydrocodone Urine NEGATIVE NG/ML (CUTOFF=50); Hydromor Urine NEGATIVE NG/ML (CUTOFF=50); Morphine Urine 912 NG/ML (CUTOFF=50); Norhydrocodone Conf Ur NEGATIVE NG/ML (CUTOFF=50); Noroxycodone Urine NEGATIVE NG/ML (CUTOFF=50); Oxycodone Urine NEGATIVE NG/ML (CUTOFF=50); Oxymorph Urine NEGATIVE NG/ML (CUTOFF=50)
[2019-02-15 13:04] LABS: Anti Cardiolipin Ab IgG <14 GPL (< = 14); Anti Cardiolipin Ab IgM 15 MPL (< = 12); Anti-Cardiolipin Ab IgA <11 APL (< = 11); Anti-Thrombin III Activity 148 % activity (80-120); B2 Glycoprotein IgA <9 SAU (<=20); B2 Glycoprotein IgG <9 SGU (<=20); B2 Glycoprotein IgM <9 SMU (<=20); Lupus Antic Hexagonal Phase Negative (Negative); Protein S Functional(Activity) 104 % (60-140)
== END 2019-02-08 16:12 | disposition home health service (06) | DRG 42 ==
LOC: ED 19:46 → SUATTDRO 02-07 01:19 → 1E 02-07 01:19

== ENCOUNTER 2019-05-21 20:31 | Observation (INO) ==
--- NOTE | 2019-05-21 20:56 | CT Scan Report ---
HEAD CT NONCONTRAST CT DOSE: 537.48 mGy.cm HISTORY: Confusion. Headache. TECHNIQUE: Multiaxial CT images of the head were performed without the use of intravenous contrast. A utomated exposure control was utilized for this study. A dose lowering technique was utilized adheri ng to the principles of ALARA. Comparison: Head CT 05/20/2019. Findings: The paranasal sinuses and mastoid air cells are clear. The calvarium and skull base are int act. There is no mass, hematoma, midline shift, acute infarct. White matter hypodensity is nonspecifi c but suggestive of microvascular ischemic change. The ventricles and sulci demonstrate mild age-rela marlen involutional changes. Impression: No significant change compared to the prior study. No acute intracranial abnormality. ACT 112: Negative or not required by law. Electronically signed by: Adelfo Sanchez M.D. 05/21/2019 8:55 PM
[2019-05-21] MEDS ORDERED: ASPIRIN CHEW 324 MG PO STA (21:13)
--- NOTE | 2019-05-21 22:14 | History & Physical Report ---
Date of Service May 21, 2019 Assessment & Plan (1) H/O recurrent transient ischemic attacks: History of recurrent TIAs, and CVA for which she received TPA on 02/06/2019/cardiolipin syndrome- The patient has had frequent of imaging studies as noted in her HPI, that she does not need to be admitted under the stroke protocol order set. 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 I will specifically order today lupus anticoagulant, homocystine and prothrombin variant, which were not done but ordered with the original hypercoagulable work- up on 02/06/2019. Continue clopidogrel 75 mg p.o. daily. Patient has been taking aspirin 81 mg daily, and will given a full 3 and 24 mg dose today. Options are to change aspirin and clopidogrel to Aggrenox, to continue aspirin and clopidogrel and add Eliquis if symptoms are persistent, or to adjust migraine prophylaxis medications such as changing metoprolol to verapamil. Among other options. We will consult her neurologist Dr. Galarza and let him decide. Present on Admission?: Yes (2) CVA (cerebral vascular accident): See above Present on Admission?: Yes (3) Complicated migraine: Following with Dr. Galarza from neurology. Continue crossover medications for anxiety and depression with topiramate, venlafaxine, clonazepam. Some of her symptoms may in fact be associated with her complicated migraine diagnosis Present on Admission?: Yes (4) Type 2 diabetes mellitus: Hold metformin, pioglitazone and insulin detemir 9 units at bedtime. Placed on Accu-Cheks before meals and at bedtime. With NovoLog coverage per scale Present on Admission?: Yes (5) Hypertension: Allow permissive hypertension. Hold lisinopril. Continue metoprolol succinate 50 mg p.o. daily in a.m. Present on Admission?: Yes (6) Sleep apnea: CPAP at bedtime as needed Present on Admission?: Yes (7) Hyperlipidemia LDL goal <70: Continue atorvastatin 40 mg daily at bedtime Present on Admission?: Yes (8) Anxiety disorder: Anxiety and depression continue clonazepam, venlafaxine extended release and topiramate. Present on Admission?: Yes (9) Depression: See above Present on Admission?: Yes (10) Tobacco abuse: Cessation counseling Present on Admission?: Yes History of Present Illness Chief Complaint: The patient presents to the emergency department with complaint of intermittent issues with difficulty with speech, confusion since yesterday, and today developed a generalized headache. Primary Care Provider: Kael Guzman DO The patient is a 74-year-old female with a past medical history including migra ine, sleep apnea, complicated migraine, implantable loop recorder, type 2 diabetes mellitus, hypertension, CVA with administration of TPA while in the ED on 02/06/2019, elevated troponin, SVT, tobacco abuse, carotid artery atherosclerosis, GERD, fatty liver, depression, COPD, TIAs, non-toxic multinodular goiter, solitary pulmonary nodule, essential hypertension, type 2 diabetes mellitus and anxiety. The patient presented to the ED with recurrent resolved episode of of transient difficulty with speech, memory and headache. She was admitted for similar symptoms on 02/06/2019 and received TPA while in the ED. The patient is currently following with Dr. Carlos Alberto Galarza from neurology for complicated migraines. She is undergone CT of the head on 02/06/2019, 02/08/2019, 02/11/2019, 05/20/2019 and 05/21/2019. She has undergone MRIs of brain on 02/07/2019 and 04/13/2019. Review of laboratory work-up from admission of 02/06/2019 reveals a positive anticardiolipin antibody. At that time, testing that was not done, that was ordered by me, was lupus anticoagulant, homocystine and prothrombin variant. The other hypercoagulable work-up was negative. Allergies Allergy/AdvReac Type Severity Reaction Status Date / Time amoxicillin [From Augmentin] Allergy Severe Anaphylaxis Verified 05/21/19 21:45 cephalexin Allergy Severe Hives Verified 05/21/19 21:45 clavulanic acid Allergy Severe Anaphylaxis Verified 05/21/19 21:45 [From Augmentin] Home Medications Home Medications Medication Instructions Recorded Confirmed Type cholecalciferol (vitamin D3) 25 1,000 units PO DAILY cap 11/08/18 05/21/19 History mcg (1,000 unit) capsule pioglitazone 15 mg tablet 15 mg PO DAILY #30 tab 11/08/18 05/21/19 History clopidogrel 75 mg tablet 75 mg PO DAILY #90 tab 11/11/18 05/21/19 Rx insulin detemir U-100 100 unit/mL 9 units SUBCUT HS #15 ml 11/21/18 05/21/19 Rx (3 mL) subcutaneous pen venlafaxine 150 mg 150 mg PO DAILY #90 cap 12/16/18 05/21/19 Rx capsule,extended release 24 hr semaglutide 0.25 mg SQ WEEKLY ml 01/07/19 05/21/19 History aspirin 81 mg tablet,delayed 81 mg PO DAILY #30 tab 02/14/19 05/21/19 Rx release famotidine 20 mg tablet 20 mg PO DAILY #30 tab 02/14/19 05/21/19 Rx lisinopril 5 mg tablet 5 mg PO QPM #90 tab 02/14/19 05/21/19 Rx metformin 1,000 mg tablet 1,000 mg PO BID #60 tab 02/15/19 05/21/19 Rx metoprolol succinate [Toprol XL] 50 mg PO DAILY 04/13/19 05/21/19 History atorvastatin 40 mg tablet 40 mg PO HS #90 tab 04/17/19 05/21/19 Rx topiramate 25 mg tablet 25 mg PO BID #60 tab 04/17/19 05/21/19 Rx clonazepam 0.5 mg tablet 0.5 mg PO HS #30 tab 05/08/19 05/21/19 Rx magnesium oxide 400 mg PO BID 05/20/19 05/21/19 History Past Med/Surg History Medical History Hypertension SVT (supraventricular tachycardia) Type 2 diabetes mellitus Surgical History History of colonoscopy History of dilation and curettage History of tonsillectomy History of tooth extraction Family History Mother Myocardial infarction Grandmother Breast cancer Kidney disease Hypertension Aunt Alzheimer disease Denies family history of Ovarian cancer Prostate cancer Colorectal cancer Social History Preferred Language: French Communication Ability: Effective Rest Room Maid Required: No Beliefs That Will Affect Care: None marital status: Current Living Situation: Spouse current occupational status: retired Other Information That Helps Us Care for You: No Feels Safe at Home: Yes Safety Concerns: Feels Safe At This Time Smoking Status: Current every day smoker Tobacco Type: cigarettes ; Cigarettes Per Day: 70 ; Do You Dip or Chew Tobacco: No ; Second Hand Exposure: No ; Tobacco Cessation Education Requested by Patient: No Hx Alcohol Use: No Hx Substance Use: No Dental Care, Regularly: No Review of Systems Review of Systems: The patient denies chest pain, palpitations, shortness of breath, dyspnea on exertion, cough, lower extremity swelling, sore throat, fevers, chills, sweats, nausea, vomiting, diarrhea , constipation, abdominal pain, pelvic pain, blood in urine or stool, dysuria, urinary frequency or urgency, loss of consciousness, rash, abnormal bruising or bleeding, imbalance, focal or generalized weakness, numbness or tingling in arms or legs, generalized arthralgias or myalgias, back or neck pain, or night sweats. The review of systems is otherwise negative other than for that already noted above, and at least 10 systems have been reviewed. Physical Exam Physical Exam: The patient is awake, alert and oriented 3, well developed and well nourished, normocephalic and atraumatic, lying in bed and in no acute distress. HEENT--PERRL, EOMI, mucous membranes and oropharynx dry. Neck--supple. No JVD. No bruits. Thyroid normal, trachea midline, no adenopathy. Heart--normal S1 and S2. No murmurs, rubs or gallops. Lungs--clear bilaterally, no respiratory distress, no accessory muscle use. Abdomen--normal bowel sounds and soft. Nontender. Nondistended, no hernias or masses, no organomegaly. Extremities--no cyanosis or clubbing. No edema. There are good distal pulses b/l. Dermatologic--normal skin turgor, normal color, no abnormal lymph nodes, no rash. Neurologic--cranial nerves II through XII grossly intact. Rheumatologic--normal range of motion. Psychiatric--normal affect. Results & Data Vital Signs (Past 12 Hours) Vital Signs Temp Pulse Pulse Resp BP BP Pulse Ox 05/21/19 21:09 108 H 20 130/90 96 05/21/19 20:52 98 05/21/19 20:33 98.1 F 90 18 152/86 H 97 Laboratory Results Laboratory Results POC Glucose 143 mg/dl (70-99) H 05/21/19 23:05 Hepatitis C Ab Screen Neg (Neg) 05/21/19 20:48 [phone] Scan Report Patient: VIOLETTE MERINO Date: 05/21/19 MR#: [id number]: [id number] Acct ID:[id number]: Date: 1945[place]: [place] [address] Age: 73Location: ED Sex: F Room/Bed: Att Phy:Diagnosis: MEMORY PROBLEMS, HEADACHE Clarissa Phy: Kael Guzman, DOService Date: 05/21/19 Fam Phy:Interpreting Phy: Adelfo Sanchez MD Admit Phy: Ordering Phy: Edenilson Pederson MD cc: ~ HEAD CT NONCONTRAST CT DOSE: 537.48 mGy.cm HISTORY: Confusion. Headache. TECHNIQUE: Multiaxial CT images of the head were performed without the use of intravenous contrast. Automated exposure control was utilized for this study. A dose lowering technique was utilized adhering to the principles of ALARA. Comparison: Head CT 05/20/2019. Findings: The paranasal sinuses and mastoid air cells are clear. The calvarium and skull base are intact. There is no mass, hematoma, midline shift, acute infarct. White matter hypodensity is nonspecific but suggestive of microvascular ischemic change. The ventricles and sulci demonstrate mild age-related involutional changes. Impression: No significant change compared to the prior study. No acute intracranial abnormality. ACT 112: Negative or not required by law. Electronically signed by: Adelfo Sanchez M.D. 05/21/2019 8:55 PM Dictated: 05/21/192050 Transcribed: 05/21/192050 Code Status & VTE Plan Code Status Full code VTE Prophylaxis Plan VTE Prophylaxis will be ordered: Yes PG Care Time/CCT Total # of Minutes Spent Total Time Spent with Patient: Total time spent is greater than 50% in coordination of care (as documented) at patient's floor/unit and/or counseling patient: Coding Level of Care Code 86464 Initial Inpt Care Lvl 3 Diagnoses H/O recurrent transient ischemic attacks Z86.73 CVA (cerebral vascular accident) I63.9 Complicated migraine G43.109 Type 2 diabetes mellitus E11.9 Hypertension I10 Sleep apnea G47.30 Hyperlipidemia LDL goal <70 E78.5 Anxiety disorder F41.9 Depression F32.9 Tobacco abuse Z72.0
[2019-05-21] MEDS ORDERED: ALUMINUM/MAGNESIUM SUSP 30 ML UDC PO PRN (22:54)
[2019-05-21] MEDS ORDERED: ACETAMINOPHEN 325 MG TAB PO PRN (22:54)
[2019-05-21] MEDS ORDERED: ONDANSETRON INJ 2 MG/ML 2 ML VIAL IV PRN (22:54)
[2019-05-21] MEDS ORDERED: MAGNESIUM HYDROXIDE SUSP 30 ML UDC PO PRN (22:54)
[2019-05-21] MEDS ORDERED: DEXTROSE 50% 50 ML SYRINGE IV PRN (23:00)
[2019-05-21] MEDS ORDERED: GLUCAGON FOR INJ 1 MG VIAL SQ PRN (23:00)
[2019-05-21] MEDS ORDERED: CARBOHYDRATES FOR HYPOGLYCEMIA PO PRN (23:00)
[2019-05-21] MEDS ORDERED: GLUCOSE 40% GEL 15 GM TUBE PO PRN (23:00)
[2019-05-21] MEDS ORDERED: GLUCOSE 10 TABS/TUBE PO PRN (23:00)
[2019-05-21] MEDS: MAGNESIUM OXIDE 400 MG TAB PO SCH (23:29)
[2019-05-21] MEDS: TOPIRAMATE 25 MG TAB PO SCH (23:30)
--- NOTE | 2019-05-22 00:03 | Emergency Department Note ---
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 Family states that the patient is experiencing the same symptoms as yesterday but now has a headache. They state she is confused and has trouble speaking. About 1 hour and 15 minutes ago the patient reports that she was washing clothes when she began to experience a headache and became confused. She admits that she did not see "spots". The patient also explains that she tried to find her headache medication during this episode today but could not recall where it was or if she took it already today. 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 The patient and her family offer no further concerns at this time. Home Medications Home Medications Medication Instructions Recorded Confirmed Type cholecalciferol (vitamin D3) 25 1,000 units PO DAILY cap 11/08/18 05/21/19 History mcg (1,000 unit) capsule pioglitazone 15 mg tablet 15 mg PO DAILY #30 tab 11/08/18 05/21/19 History clopidogrel 75 mg tablet 75 mg PO DAILY #90 tab 11/11/18 05/21/19 Rx insulin detemir U-100 100 unit/mL 9 units SUBCUT HS #15 ml 11/21/18 05/21/19 Rx (3 mL) subcutaneous pen venlafaxine 150 mg 150 mg PO DAILY #90 cap 12/16/18 05/21/19 Rx capsule,extended release 24 hr semaglutide 0.25 mg SQ WEEKLY ml 01/07/19 05/21/19 History aspirin 81 mg tablet,delayed 81 mg PO DAILY #30 tab 02/14/19 05/21/19 Rx release famotidine 20 mg tablet 20 mg PO DAILY #30 tab 02/14/19 05/21/19 Rx lisinopril 5 mg tablet 5 mg PO QPM #90 tab 02/14/19 05/21/19 Rx metformin 1,000 mg tablet 1,000 mg PO BID #60 tab 02/15/19 05/21/19 Rx metoprolol succinate [Toprol XL] 50 mg PO DAILY 04/13/19 05/21/19 History atorvastatin 40 mg tablet 40 mg PO HS #90 tab 04/17/19 05/21/19 Rx topiramate 25 mg tablet 25 mg PO BID #60 tab 04/17/19 05/21/19 Rx clonazepam 0.5 mg tablet 0.5 mg PO HS #30 tab 05/08/19 05/21/19 Rx magnesium oxide 400 mg PO BID 05/20/19 05/21/19 History Allergies Allergy/AdvReac Type Severity Reaction Status Date / Time amoxicillin [From Augmentin] Allergy Severe Anaphylaxis Verified 05/21/19 21:45 cephalexin Allergy Severe Hives Verified 05/21/19 21:45 clavulanic acid Allergy Severe Anaphylaxis Verified 05/21/19 21:45 [From Augmentin] Past Med/Surg History Medical History Hypertension SVT (supraventricular tachycardia) Type 2 diabetes mellitus Surgical History History of colonoscopy History of dilation and curettage History of tonsillectomy History of tooth extraction Family History Mother Myocardial infarction Grandmother Breast cancer Kidney disease Hypertension Aunt Alzheimer disease Denies family history of Ovarian cancer Prostate cancer Colorectal cancer Social History Preferred Language: Thai Communication Ability: Effective [place] Required: No Beliefs That Will Affect Care: None marital status: Current Living Situation: Spouse current occupational status: retired Other Information That Helps Us Care for You: No Feels Safe at Home: Yes Safety Concerns: Feels Safe At This Time Smoking Status: Current every day smoker Tobacco Type: cigarettes ; Cigarettes Per Day: 70 ; Do You Dip or Chew Tobacco: No ; Second Hand Exposure: No ; Tobacco Cessation Education Requested by Patient: No Hx Alcohol Use: No Hx Substance Use: No Dental Care, Regularly: No Review of Systems See HPI for pertinent positives & negatives. and A total of 10 systems reviewed and were otherwise negative Physical Exam Vital Signs Vital Signs - 24 hr 05/21/19 20:33 05/21/19 20:52 05/21/19 21:09 Temperature 36.7 C Temperature Source Oral Pulse Rate 90 Pulse Rate [Bilateral Apical] 108 H Respiratory Rate 18 20 Respiratory Effort / Characteristics Non-Labored Respiratory Depth Normal Blood Pressure 152/86 H Blood Pressure [Right Arm] 130/90 Blood Pressure Mean 108 Blood Pressure Mean [Right Arm] 103 Pulse Oximetry 97 98 96 Oxygen Delivery Method Room Air Room Air Room Air Sepsis Recent Fever Within 48 Hours No Sepsis Action Taken by Nursing No Action Required GENERAL: She is oriented to person, place, and time. She appears well-developed and well-nourished. She does not appear distressed. HENT: Exam performed. Head: Normocephalic and atraumatic. Right Ear: External ear normal. No mastoid tenderness. Left Ear: External ear normal. No mastoid tenderness. Mouth/Throat: The oropharynx is clear and moist. No trismus in the jaw. No dental abscesses or uvula swelling. No oropharyngeal exudate or tonsillar abscesses. EYES: Conjunctivae and EOM are normal. Pupils are equal, round, and reactive to light. Right eye exhibits no discharge. Left eye exhibits no discharge. No scleral icterus. NECK: Normal range of motion. Neck supple. No JVD present. No spinous process tenderness present. No carotid bruit present. No rigidity. No tracheal deviation and normal range of motion present. No Brudzinski's sign and no Kernig's sign noted. CV: Normal rate, regular rhythm, normal heart sounds and intact distal pulses. There is no peripheral edema. Palpable radial pulses bue. PULM/CHEST: Effort normal and breath sounds normal. No respiratory distress. No stridor. She has no wheezes. She has no rales. Chest Wall: She exhibits no tenderness. ABD: The abdomen is soft. Bowel sounds are normal. She has no distension. No m ass is present. There is no tenderness. There is no rebound, no guarding, no Lau's sign and no tenderness at McBurney's point. Rovsig negative MUSC/SKEL: Normal range of motion. There is no peripheral edema, tenderness or deformity. LYMPH: No cervical adenopathy. NEURO: She is alert and oriented to person, place, and time. She has normal strength. No cranial nerve deficit or sensory deficit. Coordination and gait normal. GCS eye subscore is 4. GCS verbal subscore is 5. GCS motor subscore is 6. cerbellar tests wnl. NIH SS; 0 SKIN: Skin is warm and dry. She is not diaphoretic. PSYCH: She has a normal mood and affect. Her behavior is normal. Judgment and thought content normal. Course Course 2045: Past medical records reviewed. The patient was evaluated in room B01. A complete history and physical exam was performed. The patient was seen in the ED 1 day ago for a recurring complex migraine. She has had multiple MRIS and CTAS including 2 CTA's of the head and neck, each which showed 50% narrowing of the carotid bifurcation bilaterally. Additionally she had 7 CT's of the head; all negative. EMR reviewed. The patient was seen in the ED 1 day ago for similar symptoms. She had a negative CT of her head at this time and discharged home. 2053: CT head viewed by me shows no ICH. Patient's NIH stroke scale is 0. No code stroke called at this time. I spoke [facility] Dr[facility] Chauhan[facility] the patient on Verapamil for migraines. 2114: Labs within normal limits. I discussed the patient's case with Dr. Knutson, [facility] Hospitalist who will admit the patient for TIA vs. complicated migraine. The patient verbally expressed understanding and agreement of the treatment plan. The patient will be evaluated for further treatment. Administered Medications Magnesium Oxide (Mag-Ox) 400 mg PO BID PAVITHRA Stop: 06/20/19 22:59 Last Admin: 05/21/19 23:29 Dose: 400 mg Documented by: [id number] Topiramate (Topamax) 25 mg PO BID PAVITHRA Stop: 06/20/19 22:53 Last Admin: 05/21/19 23:30 Dose: 25 mg Documented by: [id number] Discontinued Medications Aspirin (Aspirin) 324 mg PO NOW [facility] Stop: 05/21/19 21:14 Last Admin: 05/21/19 21:23 Dose: 324 mg Documented by: [id number] Medical Decision Making Medical Records Attestation: I reviewed the patient's medical records. Home Medications Current Medication List: was personally reviewed by me Laboratory Data Attestation: I reviewed the patient's lab results. Lab Results 05/21/19 Range/Units 20:51 POC Glucose 109 H (70-99) mg/dl Imaging Data Radiologist's Impression: Radiology results as stated below per my review and the radiologist's interpretation: HEAD CT NONCONTRAST CT DOSE: 537.48 mGy.cm HISTORY: Confusion. Headache. TECHNIQUE: Multiaxial CT images of the head were performed without the use of intravenous contrast. Automated exposure control was utilized for this study. A dose lowering technique was utilized adhering to the principles of ALARA. Comparison: Head CT 05/20/2019. Findings: The paranasal sinuses and mastoid air cells are clear. The calvarium and skull base are intact. There is no mass, hematoma, midline shift, acute infarct. White matter hypodensity is nonspecific but suggestive of microvascular ischemic change. The ventricles and sulci demonstrate mild age-related involutional changes. Impression: No significant change compared to the prior study. No acute intracranial abnormality. ACT 112: Negative or not required by law. Electronically signed by: Adelfo Sanchez M.D. 05/21/2019 8:55 PM ECG Data Attestation: I personally reviewed and interpreted this ECG as follows: Indication: + other (stroke alert) Rate (beats per minute): 84 Rhythm: + sinus rhythm ECG Intervals/blocks: + Normal QRS, + Normal CO and + Normal QT-c ECG ST segments: no ST depression and no ST elevation Blood Pressure Blood Pressure Findings: Elevated blood pressure Blood Pressure Disposition: further management by hospitalist [facility] Narrative 2045: Past medical records reviewed. The patient was evaluated in room B01. A complete history and physical exam was performed. The patient was seen in the ED 1 day ago for a recurring complex migraine. She has had multiple MRIS and CTAS including 2 CTA's of the head and neck, each which showed 50% narrowing of the carotid bifurcation bilaterally. Additionally she had 7 CT's of the head; all negative. EMR reviewed. The patient was seen in the ED 1 day ago for similar symptoms. She had a negative CT of her head at this time and discharged home. 2053: CT head viewed by me shows no ICH. Patient's NIH stroke scale is 0. No code stroke called at this time. I spoke to Dr. Chauhan, Neurology who recommends to try to put the patient on Verapamil for migraines. 2114: Labs within normal limits. I discussed the patient's [facility] vs. complicated migraine. The patient verbally expressed understanding and agreement of the treatment plan. The patient will be evaluated for further treatment. Impression & Plan TIA (transient ischemic attack) Discharge Plan Visit Data *Final* Discharge Date/Time: 05/21/19 22:34 Chief Complaint: Stroke/CVA Symptoms Stated Complaint: MEMORY PROBLEMS, HEADACHE ED Provider: Edenilson Pederson Discharge Problem: TIA (transient ischemic attack) Patient Disposition: Admitted As Inpatient Discharge Instructions Interventions: ED Discharge Assessment Last Done: 05/21/19 22:34 The scribe's documentation has been prepared under my direction and personally reviewed by me in its entirety. I confirm that the note above accurately reflects all work, treatment, procedures, and medical decision making performed by me.
[2019-05-22] MEDS: TOPIRAMATE 25 MG TAB PO SCH (08:11)
[2019-05-22] MEDS: MAGNESIUM OXIDE 400 MG TAB PO SCH (08:11)
[2019-05-22] MEDS ORDERED: CLOPIDOGREL BISULFATE 75 MG TAB PO SCH (09:00)
[2019-05-22] MEDS ORDERED: ASPIRIN 81 MG ECTAB PO SCH (09:00)
[2019-05-22] MEDS ORDERED: FAMOTIDINE 20 MG TAB PO SCH (09:00)
[2019-05-22] MEDS ORDERED: METOPROLOL SUCC 50MG EXT REL TAB PO SCH (09:00)
[2019-05-22] MEDS ORDERED: CHOLECALCIFEROL 1,000 UNITS 25 MCG TAB PO SCH (09:00)
[2019-05-22] MEDS ORDERED: VENLAFAXINE HCL XR 150 MG CAPXR PO SCH (09:00)
[2019-05-22] MEDS ORDERED: PIOGLITAZONE HCL 15 MG TAB PO SCH (09:00)
[2019-05-22 09:50] LABS: Basophils # (auto) 0.07 K/uL (0-0.2); Basophils % (auto) 0.8 %; Eosinophils # (auto) 0.17 K/uL (0-0.5); Eosinophils % (auto) 1.9 %; Hemoglobin 13.6 g/dL (12.0-16.0); Immature Granulocytes # (auto) 0.04 K/uL (0.00-0.02); Immature Granulocytes % (auto) 0.4 %; Lymphocytes % (auto) 32.3 %; Mean Corpuscular Hemoglobin 29.1 pg (25-34); Mean Corpuscular Volume 87.8 fL (80-100); Mean Platelet Volume 10.9 fL (7.4-10.4); Monocytes # (auto) 0.51 K/uL (0.11-0.59); Monocytes % (auto) 5.7 %; Neutrophils % (auto) 58.9 %; Platelet Count 226 K/uL (130-400); RDW Standard Deviation 45.1 fL (36.4-46.3); Red Blood Count 4.67 M/uL (4.2-5.4); White Blood Count 8.99 K/uL (4.8-10.8)
[2019-05-22 09:53] LABS: Mean Corpuscular Hgb Conc 33.2 g/dL (32-36)
[2019-05-22 10:03] LABS: BUN Creatinine Ratio 16.9 (10-20); Calcium 8.7 mg/dl (8.5-10.1); Creatinine Clr Calc Pharmacy 79.4 ml/min; Est GFR (African American) 90.8; Est GFR (Non-African American) 78.4; Potassium 3.9 mmol/L (3.5-5.1)
[2019-05-22 10:05] LABS: Albumin Globulin Ratio 0.9 (0.9-2); Bilirubin,Total 0.7 mg/dl (0.2-1); Globulin 3.3 gm/dl (2.5-4.0); Total Protein 6.3 gm/dl (6.4-8.2)
[2019-05-22 10:15] LABS: Influenza A virus by PCR Neg for Influ A (Neg); Influenza B virus by PCR Neg for Influ B (Neg)
--- NOTE | 2019-05-22 10:16 | Neurology Consultation ---
Date of Consultation May 22, 2019 Assessment & Plan (1) Complicated migraine: Probable complicated migraine, resolved, neurologically intact at this time. Patient's current presentation is very similar to her previous episodes, all with unremarkable imaging evaluations. The significance of the indeterminate (low) elevation in anticardiolipin IgM is uncertain in this patient, although probably unlikely, no history of proven thromboembolic phenomenon such as DVT, pulmonary embolism, or loss in this patient. Additionally, there is no evidence of significant carotid or cranial arterial disease on angiography. No evidence of atrial fibrillation thus far, has loop recorder. No evidence of significant structural cardiac disease on previous echocardiography. At this point, I will increase her dosage of topiramate to 50 mg twice daily, for improved migraine prevention. May consider adding a low-dose of verapamil as well depending on her status going forward. Have patient continue with aspirin 81 mg/day and clopidogrel 75 mg/day. Follow-up with results of hypercoagulable/thrombophilia lab evaluation. There does not appear to be an indication for anticoagulation thus far in this patient. Smoking cessation. Have patient follow-up with me in the outpatient clinic in the next 3 to 4 weeks. History of Present Illness Reason for Consultation: TIA-like episode Requesting Physician: Nehemias Knutson MD Attending Physician: Gerald Segura MD History of Present Illness The patient is a 73-year-old female who is known to me. She has a history of recurrent strokelike episodes, probably complicated migraine. Patient has had multiple assessments for strokelike episodes over the past year with unremarkable imaging, no evidence of acute or subacute infarct. She currently has a loop recorder, no evidence of atrial fibrillation although does have SVT, follows with cardiology. I started this patient on topiramate about 1 month ago for prevention of suspected complicated migraine. Patient does report that this medication has been very helpful and well-tolerated. However, she did present to the emergency department on May 20 complaining of a recurrence of strokelike symptoms consisting of blurry vision, off to the right, lasting about 30 minutes, with associated frontal headache. No associated nausea or light sensitivity. No associated weakness or sensory loss with that episode. A CT of the head was negative for hemorrhage or acute process at that time and she was discharged home in stable condition. The patient indicates that her vision disturbance recurred the following day and was followed by some confusion and frontal headache once again. She was brought back to the emergency department for repeat assessment. Another CT of the head was completed which was also unremarkable. Currently, the patient indicates that she is feeling fine, no residual headache, vision disturbance, change in speech, or focal weakness reported. This patient does have several cardiovascular/stroke risk factors including hyperlipidemia, hypertension, tobacco use, and type 2 diabetes mellitus. She also has a recently diagnosed thyroid nodule and will require a biopsy within the next few weeks. In light of her history of recurrent strokelike episode she has been taking both daily low-dose aspirin and clopidogrel. Again, I had started topiramate for migraine prevention at her last clinic appointment with me on April 17, 2019. The patient was also referred to sleep medicine at that time to address sleep apnea, reportedly untreated for several years. Of note, patient was found to have an indeterminate elevation of anticardiolipin IgM, level only 15. There was some concern for the possibility of anticardiolipin antibody syndrome/hypercoagulable state per the admitting physician. The patient denies any history of DVT, pulmonary embolism, or miscarriage. The significance of this mild elevation in anticardiolipin IgM is undetermined. Again, she is taking both daily low-dose aspirin and clopidogrel. Allergies Allergy/AdvReac Type Severity Reaction Status Date / Time amoxicillin [From Augmentin] Allergy Severe Anaphylaxis Verified 05/21/19 21:45 cephalexin Allergy Severe Hives Verified 05/21/19 21:45 clavulanic acid Allergy Severe Anaphylaxis Verified 05/21/19 21:45 [From Augmentin] Home Medications Home Medications Medication Instructions Recorded Confirmed Type cholecalciferol (vitamin D3) 25 1,000 units PO DAILY cap 11/08/18 05/21/19 History mcg (1,000 unit) capsule pioglitazone 15 mg tablet 15 mg PO DAILY #30 tab 11/08/18 05/21/19 History clopidogrel 75 mg tablet 75 mg PO DAILY #90 tab 11/11/18 05/21/19 Rx insulin detemir U-100 100 unit/mL 9 units SUBCUT HS #15 ml 11/21/18 05/21/19 Rx (3 mL) subcutaneous pen venlafaxine 150 mg 150 mg PO DAILY #90 cap 12/16/18 05/21/19 Rx capsule,extended release 24 hr semaglutide 0.25 mg SQ WEEKLY ml 01/07/19 05/21/19 History aspirin 81 mg tablet,delayed 81 mg PO DAILY #30 tab 02/14/19 05/21/19 Rx release famotidine 20 mg tablet 20 mg PO DAILY #30 tab 02/14/19 05/21/19 Rx lisinopril 5 mg tablet 5 mg PO QPM #90 tab 02/14/19 05/21/19 Rx metformin 1,000 mg tablet 1,000 mg PO BID #60 tab 02/15/19 05/21/19 Rx metoprolol succinate [Toprol XL] 50 mg PO DAILY 04/13/19 05/21/19 History atorvastatin 40 mg tablet 40 mg PO HS #90 tab 04/17/19 05/21/19 Rx topiramate 25 mg tablet 25 mg PO BID #60 tab 04/17/19 05/21/19 Rx clonazepam 0.5 mg tablet 0.5 mg PO HS #30 tab 05/08/19 05/21/19 Rx magnesium oxide 400 mg PO BID 05/20/19 05/21/19 History Patient History Medical History Hyperlipidemia LDL goal <70 Hypertension SVT (supraventricular tachycardia) Type 2 diabetes mellitus Surgical History History of colonoscopy History of dilation and curettage History of tonsillectomy History of tooth extraction Family History Mother Myocardial infarction Grandmother Breast cancer Kidney disease Hypertension Aunt Alzheimer disease Denies family history of Ovarian cancer Prostate cancer Colorectal cancer Social History Preferred Language: Vietnamese Communication Ability: Effective Mechanical Tech Required: No Beliefs That Will Affect Care: None marital status: Current Living Situation: Spouse current occupational status: retired Other Information That Helps Us Care for You: No Feels Safe at Home: Yes Safety Concerns: Feels Safe At This Time Smoking Status: Current every day smoker Tobacco Type: cigarettes ; Cigarettes Per Day: 70 ; Do You Dip or Chew Tobacco: No ; Second Hand Exposure: No ; Tobacco Cessation Education Requested by Patient: No Hx Alcohol Use: No Hx Substance Use: No Dental Care, Regularly: No Review of Systems Constitutional: no fever and no chills Eyes: as per Subjective / HPI; no diplopia and no eye pain Ear, Nose, Mouth, Throat: no tinnitus and no hearing loss Respiratory: no cough and no dyspnea Cardiovascular: no chest pain and no palpitations Gastrointestinal: no nausea and no vomiting Genitourinary: no dysuria and no urinary urgency Musculoskeletal: no neck pain and no myalgia Integumentary: no rash and no lesions Neurologic: as per Subjective / HPI Psychiatric: no depression and no anxiety Hematologic / Lymphatic: no easy bleeding and no easy bruising Physical Exam Physical Exam: The patient is a well-developed, well-nourished elderly female. She is alert and fully oriented. Recent and remote memory intact. Attention and concentration normal. Patient exhibits a normal spontaneous speech pattern as well as an age-appropriate fund of knowledge. Visual garcia full to confrontation. Visual acuity normal. Pupils equal round reactive to light and accommodation. Eye movements normal. There is no nystagmus, ptosis, or ophthalmoplegia. Facial sensation intact. There is no facial droop or weakness. Hearing intact. Palate elevates to midline. Shoulder shrug intact. Tongue protrudes to midline. Sensation intact all modalities in all 4 limbs. Deep tendon reflexes intact and symmetrical for the arms and legs. Plantar responses downgoing bilaterally. There is no dysdiadochokinesia or dysmetria [id number] or [id number] bilaterally. Ophthalmoscopic examination reveals normal-appearing optic disks and posterior segments. No papilledema or hemorrhages. Carotid pulses normal bilaterally, no bruits to auscultation. Gait and station normal. Patient exhibits normal muscle strength and tone for all 4 limbs. No atrophy. No abnormal movements observed. Results & Data Vital Signs (Past 12 Hours) Vital Signs Temp Pulse Pulse Pulse Resp BP Pulse Ox 05/22/19 07:05 36.7 C 89 18 131/79 91 05/22/19 03:04 36.9 C 104 H 20 143/78 H 94 05/21/19 23:19 100 H 05/21/19 23:00 36.7 C 97 H 18 167/85 H 99 05/21/19 22:30 96 H 20 169/70 H 99 Laboratory Results WBC 8.99, hemoglobin 13.6, hematocrit 41.0, platelet count 226, sodium 141, potassium 3.9, BUN 13, creatinine 0.76, glucose 111, calcium 8.7, AST 16, ALT 16, homocystine pending, anticardiolipin IgM antibody [address] of the head completed May 21, 2019- for hemorrhage or acute process. There is evidence of chronic microvascular ischemic change. Mild age-related atrophy. I reviewed the images as well as the radiologist interpretation of this test. CT angiography of the head and neck completed in January 2019 were unremarkable. No evidence of a significant stenosis, occlusion, dissection, or aneurysm. There was a 1.8 cm left thyroid nodule. Brain MRIs completed November 09, 2018, February 07, 2019, and April 13, 2019 for strokelike symptoms were all negative for acute or subacute process. An electrocardiogram completed yesterday revealed a normal sinus rhythm, 84 bpm An echocardiogram completed February 07, 2019 revealed a hyperdynamic left ventricle, mild concentric left ventricular hypertrophy, no significant valvular heart disease. No change compared with the previous echocardiogram done November 09, 2018, no evidence for PFO on that study. Coding Level of Care Code 41860 Initial Inpt Care Lvl 3 Diagnoses Complicated migraine G43.109
--- NOTE | 2019-05-22 10:24 | Hospitalist Progress Note ---
Date of Service May 22, 2019 Assessment & Plan Admission and Anticipated Discharge Date Admission Date: May 21, 2019 Results & Data ([facility]) Vital Signs (Past 12 Hours) Vital Signs Temp Pulse Pulse Pulse Resp BP Pulse Ox 05/22/19 07:05 36.7 C 89 18 131/79 91 05/22/19 03:04 36.9 C 104 H 20 143/78 H 94 05/21/19 23:19 100 H 05/21/19 23:00 36.7 C 97 H 18 167/85 H 99 05/21/19 22:30 96 H 20 169/70 H 99
--- NOTE | 2019-05-22 10:27 | Electrocardiogram Report ---
Test Reason : Blood Pressure : / mmHG Vent. Rate : 084 BPM Atrial Rate : 084 BPM P-R Int : 132 ms QRS Dur : 074 ms QT Int : 390 ms P-R-T Axes : 042 022 051 degrees QTc Int : 460 ms Poor data quality, interpretation may be adversely affected Normal sinus rhythm Normal ECG When compared with ECG of 20-MAY-2019 20:17, Criteria for Septal infarct are no longer Present Confirmed by Obi Mon ([id number]) on 05/22/2019 10:26:30 AM Referred By: REFERRED SELF Confirmed By:Yanick Mon
--- NOTE | 2019-05-22 15:24 | Discharge Summary ---
Date of Service May 22, 2019 Admission HPI Per Admitting Provider The patient is a 74-year-old female with a past medical history including migraine, sleep apnea, complicated migraine, implantable loop recorder, type 2 diabetes mellitus, hypertension, CVA with administration of TPA while in the ED on 02/06/2019, elevated troponin, SVT, tobacco abuse, carotid artery atherosclerosis, GERD, fatty liver, depression, COPD, TIAs, non-toxic multinodular goiter, solitary pulmonary nodule, essential hypertension, type 2 diabetes mellitus and anxiety. The patient presented to the ED with recurrent resolved episode of of transient difficulty with speech, memory and headache. She was admitted for similar symptoms on 02/06/2019 and received TPA while in the ED. The patient is currently following with Dr. Carlos Alberto Galarza from neurology for complicated migraines. She is undergone CT of the head on 02/06/2019, 02/08/2019, 02/11/2019, 05/20/2019 and 05/21/2019. She has undergone MRIs of brain on 02/07/2019 and 04/13/2019. Review of laboratory work-up from admission of 02/06/2019 reveals a positive anticardiolipin antibody. At that time, testing that was not done, that was ordered by me, was lupus anticoagulant, homocystine and prothrombin variant. The other hypercoagulable work-up was negative. Admission Exam Per Admitting Provider The patient is awake, alert and oriented 3, well developed and well nourished, normocephalic and atraumatic, lying in bed and in no acute distress. HEENT--PERRL, EOMI, mucous membranes and oropharynx dry. Neck--supple. No JVD. No bruits. Thyroid normal, trachea midline, no adenopathy. Heart--normal S1 and S2. No murmurs, rubs or gallops. Lungs--clear bilaterally, no respiratory distress, no accessory muscle use. Abdomen--normal bowel sounds and soft. Nontender. Nondistended, no hernias or masses, no organomegaly. Extremities--no cyanosis or clubbing. No edema. There are good distal pulses b/l. Dermatologic--normal skin turgor, normal color, no abnormal lymph nodes, no rash. Neurologic--cranial nerves II through XII grossly intact. Rheumatologic--normal range of motion. Psychiatric--normal affect. Principal Diagnosis Complex Migraine Discharge Exam Constitutional cooperative; no acute distress and not ill appearing Neck normal visual inspection Respiratory normal respiratory effort and able to speak in complete sentences; no respiratory distress, no labored breathing, no retractions, no cough and no audible wheezes Auscultation: lungs clear to auscultation bilaterally; no crackles, no rales, no rhonchi and no wheezes Cardiovascular Rate/Rhythm: regular rate and regular rhythm Heart Sounds: normal S1 and normal S2; no gallop, no murmur and no cardiac rub Vessels: posterior tibial pulses present Extremities: no pedal edema and no edema Gastrointestinal (Abdomen) Inspection/Auscultation: abdomen normal to inspection and normal bowel sounds; abdomen not distended Percussion/Palpation: abdomen soft; abdomen nontender, no guarding, abdomen not rigid and no abdominal mass Discharge Data Allergies Allergy/AdvReac Type Severity Reaction Status Date / Time amoxicillin [From Augmentin] Allergy Severe Anaphylaxis Verified 05/21/19 21:45 cephalexin Allergy Severe Hives Verified 05/21/19 21:45 clavulanic acid Allergy Severe Anaphylaxis Verified 05/21/19 21:45 [From Augmentin] Consultations 05/21/19 21:12 ED Decision to Admit Stat 05/21/19 22:54 Consult Case Management - Discharge Planning Routine Consult Neurology Routine Ordered Studies 05/21/19 20:37 CT head/brain wo con Stat Hospital Course (1) Complicated migraine: Ms. Almeida was evaluated in the hospital for a repeat episode of visual disturbance with headache, slurring and difficulty with speech. Repeat CT head revealed unremarkable imaging. Loop recorder showing no evidence of atrial fibrillation. No signs of structural cardiac disease on previous echos. She was evaluated by neurology and determined to be more likely to be having repeat complex migraines than repeat TIAs. She was asymptomatic after her morning topamax dose, which was increased to 50 mg BID per neurology's recommendations. Can consider adding a low-dose of verapamil as well depending on her status going forward. Continue aspirin 81 mg/day, plavix 75 mg/day. Hypercoagulable/thrombophilia lab evaluation ordered and pending at this time. No indication for anti-coagulation at this time. Total Time Total Time Spent Total Time Spent (In Minutes): Discharge Plan Discharge Items Patient Disposition: Home - Self-Care Reason For Visit: RECURRENT TIA'S, CARDIOLIPIN SYNDROME Discharge Diagnosis: Complex Migraine Activity: Resume your previous activity Non-emergency contact: Primary Care Provider and Neurologist Call non-emergency contact if: you have any medication questions and your symptoms worsen Follow-up/Referrals: Carlos Alberto Galarza MD [Physician] - 05/31/19 3:00 am (Appointment for Dr Galarza will be with Shelbie BLOCK) Kael Guzman DO [Primary Care Provider] - 05/30/19 9:20 am Diet: Heart Healthy Addtl Attending Provider Instructions: You were evaluated in the hospital for stroke like symptoms which were decided to be a complex migraine. Your topamax dose was doubled from 25 mg twice a day to 50 mg twice a day. Continue to take your daily aspirin and plavix and other medications as prescribed. Given that you have these migraines frequently, it would be relevant to discuss with your primary care physician and/or neurologist about abortive migraine medications that you can take as your migraine symptoms begin in addition to your daily medications. We talked briefly about your nasal congestion and your respiratory symptoms that you were experiencing. Discuss this with your PCP at your follow up appointment if the symptoms do not improve with use of over the counter flonase/nasonex. Follow up with your primary care physician in the next two weeks and Dr. Galarza in 3-4 weeks to discuss your symptoms and hospital stay. As always, if you have symptoms of a stroke (trouble speaking, weakness on one side of your body, vision changes, numbness or tingling) that does not go away or feels different from your normal migraines, go to the Emergency Department immediately for evaluation. Pending Studies at Discharge: No Stand-Alone Forms: My [employer], Smoking Cessation Medications and DC Order Prescriptions: New topiramate 50 mg Tablet 50 mg PO BID 30 Days Qty: 60 RF: 0 Continued Levemir FlexTouch U-100 Insuln 100 unit/mL (3 mL) insulin pen 9 units subcut HS Qty: 15 RF: 1 venlafaxine 150 mg capsule,extended release 24hr 150 mg PO DAILY Qty: 90 RF: 3 Ozempic 0.25 mg or 0.5 mg(2 mg/1.5 mL) pen injector 0.25 mg SQ WEEKLY RF: 0 lisinopril 5 mg tablet 5 mg PO QPM Qty: 90 RF: 1 metformin 1,000 mg tablet 1,000 mg PO BID Qty: 60 RF: 0 atorvastatin 40 mg tablet 40 mg PO HS Qty: 90 RF: 1 clonazepam 0.5 mg tablet 0.5 mg PO HS Qty: 30 RF: 0 clopidogrel 75 mg tablet 75 mg PO DAILY Qty: 90 RF: 3 cholecalciferol (vitamin D3) 1,000 unit capsule 1,000 units PO DAILY RF: 0 pioglitazone 15 mg tablet 15 mg PO DAILY Qty: 30 RF: 0 aspirin 81 mg tablet,delayed release (DR/EC) 81 mg PO DAILY Qty: 30 RF: 2 famotidine [Pepcid AC] 20 mg tablet 20 mg PO DAILY Qty: 30 RF: 2 magnesium oxide 400 mg magnesium Tablet 400 mg PO BID RF: 0 metoprolol succinate [Toprol XL] 50 mg tablet extended release 24 hr 50 mg PO DAILY RF: 0 Discontinued topiramate 25 mg tablet 25 mg PO BID Qty: 60 RF: 2 Discharge Orders: Discharge Order (Routine); Ordered 05/22/19 Ordered By: Swathi Kearney/Other Patient Handouts: TIA, Headache Migraine Meds Lifestyle Admission Data Admit Date/Time: 05/21/19 22:13 Attending Provider: Gerald Segura Admit Provider: Nehemias Knutson Primary Care Provider: Kael Guzman Other Providers: Nehemias Knutson ; Carlos Alberto Galarza. Other Interventions: Discharge Summary Assessment (RN) Last Done: 05/22/19 17:03 DC Date/Time DO NOT enter until pt leaves facility: 05/22/19 17:54 Supervising Physician Co-Signing Physician Notes Attending attestation Pt seen and examined in concert with Dr. Funez. In agreement with the documented findings as noted in the resident documentation with any exceptions or additions as noted here. Resolution of symptoms today, without complaint at time of evaluation in afternoon hours. On examination, S1/S2 nl RRR no MCG. CTAB. Abd NT/ND BS+ve. CNII-XII grossly intact. Complicated migraine v. TIA - neurology consultation appreciated - in light of resolution of symptoms, agree w/ uptitration of preventative migraine medication and close follow up. Would consider abortive with neurology in the future if tolerated. Continue aspirin and plavix per neuro recommendations. h/o +ve anticardiolipin antibodies - follow up coagulopathy labs, no indication for anticoagulation at present Else see resident documentation as noted. Time spent: 40 minutes. Resident Activity Tracking Resident Involvement: Resident Care Provided Care Provided: Adult Hospital Medicine
[2019-05-22] MEDS ORDERED: INSULIN DETEMIR FLEXPEN/FLEX TOUCH 100 UNITS/ML 3ML SQ SCH (21:00)
[2019-05-22] MEDS ORDERED: TOPIRAMATE 50 MG TAB PO SCH (21:00)
[2019-05-22] MEDS ORDERED: clonazePAM 0.5 MG TAB PO SCH (21:00)
[2019-05-22] MEDS ORDERED: ATORVASTATIN 40 MG TAB PO SCH (21:00)
[2019-05-22] MEDS ORDERED: lisinopriL 5 MG TAB PO SCH (21:00)
--- NOTE | 2019-05-30 07:32 | Coding Query ---
A supporting diagnosis is required for the test/procedure performed on this patient in order for us to be reimbursed by the patient's insurance. Please provide a supporting diagnosis for the following test/procedure listed below next to the test name along with your signature. *If there is no additional diagnosis for this patient that would support the following test/procedure please document that below next to the test/procedure. Test(s)/Procedure(s) that require a supporting diagnosis: * 66836 FACTOR II PROTHROMBIN MUTATION DIAGNOSIS:TIA DATE OF SERVICE: 05/22/19 Provider Signature: Date: Thank you Mark Hered[facility] Information Management Once completed, please kindly fax back to [phone] For questions please call [phone] [facility]
== END 2019-05-22 17:54 | disposition home or self-care (01) ==
LOC: ED 20:31 → INTOOBSV 22:13 → 2S 22:13 → SUATTDRO 22:13 → 2S 22:34